=== PATIENT | male | born 1965 ===

== ENCOUNTER 2021-05-11 08:10 | Emergency (ER) | payer SELFPAY ==
[2021-05-11 08:51] VITALS: BP 127/76; PULSE 80; RESP 18; TEMP 36.9; O2SAT 100; BMI 23.3
--- NOTE | 2021-05-11 09:27 | ED_ITS ---
HPI - Ear Problem General Chief complaint: Ear Problems Stated complaint: ear problem Time Seen by Provider: 05/11/21 09:11 Source: patient Mode of arrival: ambulatory Limitations: no limitations History of Present Illness HPI Narrative: 56-year-old healthy male presenting to the ED with 3-4 days of left-sided ear pain and hearing loss. States about 2 weeks ago year to pop in that ear but did not notice discomfort. Denies drainage or discharge from the ear. Denies fevers or chills. Denies headache neck pain chest pain or shortness of breath. Due to concern in the absence of primary care physician he felt he needed to be seen. Denies any recent swimming or trauma to the ear itself. Related Data Previous Rx's Medication Instructions Recorded amoxicillin 1,000 mg PO Q12H #40 tab 05/11/21 carbamide peroxide [Debrox] 5 drp OTIC (EAR) RIGHT DAILY 4 05/11/21 Days ml Allergies Allergy/AdvReac Type Severity Reaction Status Date / Time No Known Allergies Allergy Verified 05/11/21 08:51 Review of Systems Review of Systems: Constitutional : No Weight loss, No Fever, No Chills, No Night Sweats, No Fatigue, No Malaise ENT/Mouth : +Hearing loss, + Ear Pain, No Nasal Congestion, No Sinus Pain, No Hoarseness, No sore throat, No Rhinorrhea, No Swallowing Difficulty Eyes: No Eye Pain, No Swelling, No Redness, No Foreign Body, No Discharge, No Vision Changes Cardiovascular : No Chest Pain, No SOB, No Dyspnea on Exertion, No Orthopnea, No Edema, No Palpitations Respiratory : No Cough, No Sputum, No Wheezing, No Smoke Exposure, No Dyspnea Gastrointestinal : No Nausea, No Vomiting, No Diarrhea, No Constipation, No abdominal Pain, No Hematochezia, No Melena Genitourinary : no irregular bleeding, No Dysuria, No Urinary Frequency, No Hematuria, No Urinary Incontinence, No Urgency, No Flank Pain, No Urinary Flow Changes, No Hesitancy Musculoskeletal : No joint pain, No Myalgias, No Joint Swelling Skin : No Skin Lesions, No rash Neuro : No Weakness, No Numbness, No Paresthesias, No Loss of Consciousness, No Dizziness, No Headache Psych : No Anxiety/Panic, No Depression, No SI/HI/AH/VH, No Social Issues, Heme/Lymph: No Bruising, No Bleeding,No Lymphadenopathy Endocrine : No Polyuria, No Polydipsia, No Temperature Intolerance [facility] Past Medical History Attestation statement: The following information was validated with the patient. Source: old records reviewed and obtained from family Medical History (Updated 05/11/21 @ 10:45 by RAJ Neal) No known health problems Social History Social History Advance Directives: No Advance Directives Information Provided: No Physical Exam Vital Signs: Vital Signs: Last Vital Signs Temp 98.5 F 05/11/21 08:51 Pulse 80 05/11/21 08:51 Resp 18 05/11/21 08:51 BP 127/76 05/11/21 08:51 Pulse Ox 100 05/11/21 08:51 Body Mass Index 23.3 vital signs have been reviewed as normal and appeared to be correct. Blood pressure normal. Heart rate normal. Respiration rate normal. Temperature normal. Oxygen saturation normal. Appearance: Alert. Oriented X3. No acute distress. Head: Normal external exam. Normocephalic. Atraumatic. No Beck signs noted. No raccoon eyes noted Eyes: Conjunctiva and sclera normal. ENT: EAC normal. Patient with significant cerumen to bilateral ears, right TM visualized and normal, left TM unable to be visualized due to cerumen. Moist mucous membranes. No drooling noted. No muffled voice noted. Neck: Normal inspection. Neck supple. FROM. No meningeal signs. CVS: Pulses normal throughout. Respiratory: No respiratory distress. Painless inspiration. No accessory muscle usage noted Abdomen: No visible injury noted. Back: Full range of motion noted. Skin: Skin warm and dry. Normal skin color. Normal skin turgor. Extremities: No lower extremity edema. Extremities exhibit normal range of motion. Neuro: Oriented X 3. No motor deficit. No sensory deficit. Course Reevaluation(s) Reevaluation #1: Colace seem to work well after significant flushing large amount of ear wax was removed showing a TM without rupture. Patient does have mild purulence and irritation from procedure may represent otitis media will treat with amoxicillin as well as Debrox for the other ear to help ear wax buildup patient comfortable with this plan feel that discharge is safe with close outpatient follow-up and strict return precautions. MDM - Ear MDM Narrative Medical decision making narrative: Patient's vital signs are stable and he is afebrile. Patient presenting to the emergency department with left ear pain and hearing loss times 2-3 days unable to visualize left TM due to significant cerumen impaction physical debridement attempted minimal improvement will place Colace in the patient's left ear at times to soften wax buildup and fully assess left TM as there was a concern for acute otitis media TM rupture. Will continue monitor Discharge Plan Discharge Clinical Impression: Otitis media Qualifiers: Otitis media type: suppurative Chronicity: acute Laterality: left Recurrence: non-recurrent Spontaneous tympanic membrane rupture: without spontaneous rupture Qualified Code(s): H66.002 - Acute suppurative otitis media without spontaneous rupture of ear drum, left ear Patient Disposition: Home, Self-Care Instructions: Ear Infection (ED) Additional Instructions: You were seen in the emergency department today for left ear pain and hearing loss she had a significant amount of wax in the ear that was cleaned out. He will be prescribed Debrox drops used in the right ear to help prevent this from happening. In addition you will be prescribed antibiotics to take orally as there is signs of mild ear infection. Return to the ED for having worsening symptoms follow-up with clinical research manager if you continue to have hearing loss. Prescriptions: New amoxicillin 500 mg tablet 1,000 mg PO Q12H Qty: 40 RF: 0 carbamide peroxide [Debrox] 6.5 % drops 5 drp otic (ear) right DAILY 4 Days RF: 0 Referrals: Marylou Sanders MD [Physician] - 1 week Interventions: ED Discharge Assessment Last Done: 05/11/21 11:07 Discharge Date/Time: 05/11/21 11:16 Print Language: Luxembourgish
[2021-05-11] MEDS: Docusate Sodium 100 MG/10 ML LIQUID PO (09:32)
--- NOTE | 2021-05-11 11:04 | PC.NURSE ---
Cerumen removed by pac cortez @ approx, 1020, md preciado also at bedside to evaluate r ear. pt tolerates procedure well, denies discomfort after.
== END 2021-05-11 11:16 | disposition home or self-care (01) ==
PROVIDERS: Emergency Provider Student in an Organized Health Care Education/Training Program
DX: H66.002 Acute suppurative otitis media without spontaneous rupture of ear drum, left ear (principal)
CPT/HCPCS: 69209; 99283

== ENCOUNTER 2021-10-20 12:23 | Emergency (ER) | payer MEDICAID, SELFPAY ==
[2021-10-20 12:26] VITALS: BP 132/100; PULSE 85; RESP 18; TEMP 37.2; O2SAT 97; BMI 25.0
--- NOTE | 2021-10-20 14:34 | ED_ITS ---
HPI - Dental/Oral General Chief complaint: Dental/Oral Stated complaint: facial swelling Time Seen by Provider: 10/20/21 14:09 Source: patient Mode of arrival: ambulatory Limitations: no limitations History of Present Illness HPI Narrative: 56-year-old male here with complaints of left upper dental pain with facial swelling since yesterday. Patient tells me he knows that he has had several broken teeth in the left upper area but has not seen a dentist. He denies any fevers, chills, difficulty swallowing or breathing. Smokes cigarette Complaint: tooth pain Related Data Previous Rx's Medication Instructions Recorded amoxicillin 500 mg tablet 1,000 mg PO Q12H #40 tab 05/11/21 carbamide peroxide 6.5 % ear drops 5 drp OTIC (EAR) RIGHT DAILY 4 05/11/21 (Debrox) Days ml clindamycin HCl 300 mg capsule 300 mg PO Q8H #21 cap 10/20/21 ibuprofen 600 mg tablet 600 mg PO Q8H PRN #20 tab 10/20/21 oxycodone 5 mg tablet 5 mg PO Q8H PRN #10 tab 10/20/21 Allergies Allergy/AdvReac Type Severity Reaction Status Date / Time No Known Allergies Allergy Verified 10/20/21 12:26 Review of Systems Review of Systems: Yes all other systems are reviewed and are negative Constitutional: Constitutional: Reports no additional constitutional complaints, Denies body ache(s), Denies chills, Denies fever(s), Denies headache(s) and Denies weakness Eyes: Eyes: Reports no additional eye complaints and Denies change in vision ENT: Reports system reviewed and no additional complaints, except as documented, Reports dental pain, Denies dizziness, Reports facial pain, Denies headache(s), Denies nasal congestion, Denies nasal discharge and Denies neck pain Cardiovascular: Cardiovascular: Reports no additional cardiovascular complaints, Denies chest pain, Denies leg edema and Denies dyspnea Respiratory: Respiratory: Reports no additional respiratory complaints, Denies cough and Denies dyspnea Gastrointestinal: Gastrointestinal: Reports no additional gastrointestinal complaints, Denies abdominal pain, Denies diarrhea, Denies nausea and Denies vomiting Genitourinary: Genitourinary: Denies urinary incontinence Musculoskeletal: Musculoskeletal: Reports no additional musculoskeletal complaints, Denies back pain, Denies arthralgias, Denies joint swelling, Denies neck pain, Denies numbness and Denies tingling Integumentary/Breasts: Skin/Breast: Reports system reviewed and no additional complaints, except as docu and Denies rash Neurologic: Reports system reviewed and no additional complaints, except as documented, Denies Abnormal speech present, Denies dizziness, Denies headache(s), Denies numbness, Denies tingling and Denies weakness [facility] Past Medical History Attestation statement: The following information was validated with the patient. Source: old records reviewed and nursing notes reviewed Medical History No known health problems Social History Social History Advance Directives: No Advance Directives Information Provided: Yes Physical Exam Vital Signs: Vital Signs: Last Vital Signs Temp 99.0 F 10/20/21 12:26 Pulse 85 10/20/21 12:26 Resp 18 10/20/21 12:26 BP 132/100 H 10/20/21 12:26 Pulse Ox 97 10/20/21 12:26 BMI result Body Mass Index 25.0 Const: General: cooperative, healthy appearing, comfortable and no acute di stress Orientation/consciousness: patient oriented x3 Limitations: no limitations HENMT: Head: Yes normal to inspection Ears: hearing grossly normal bilaterally General nose exam: Normal external nose present Face and sinus : Yes normal facial exam Face images: 1. Mild swelling, tenderness. No fluctuation or induration No trismus on exam Mouth: Normal oral and palatal mucosa present Teeth image: 1. Extensive caries At the gum line there is erythema, swelling and tenderness. There is no fluctuance or induration Throat: Yes posterior oropharynx normal Eyes: General: appearance normal, both eyes and all related structures Pupi ls: Equal, round and reactive pupils present Neck: Neck: Yes normal visual inspection, Yes full ROM, Yes no lymphadenopathy and Yes no meningeal signs Chest: Chest palpation & inspection: normal inspection of the chest Resp: Effort & Inspection: normal respiratory effort Auscultation: clear to auscultation bilaterally Cardio: Rate: regular rate Rhythm: regular rhythm Peripheral pulses: Pe ripheral pulses 2+ throughout GI: Inspection: Yes normal to inspection Palpation (GI): Soft to palpation and nontender Auscultation: normal bowel sounds Back/Spine/Pelvis: Thoracic/Lumbar Spine: thoracic and lumbar spine normal to inspection Skin: General skin exam: no rashes or lesions noted Neuro: General: patient oriented x3, no meningeal signs, no focal motor deficits and normal sensation to monofilament Cranial nerves: Yes Equal, round and reactive pupils present Cognition (Neuro): normal cognition Speech: No Abnormal speech present Gait exam (Neuro): Normal gait present Motor exam (neuro): 5/5 motor strength present throughout Extrem: General: Yes normal to inspection Course Course Course Narrative: 56-year-old male here with a left-sided dental infection with a local facial cellulitis. No trismus. Nontoxic, afebrile. No obvious abscess on exam. Will start patient on oral antibiotics. Reviewed strict return precautions such as increasing swelling, difficulty breathing, difficulty swallowing, fever and when to return to the emergency department. Comfortable discharge home. [facility] - Dental/Oral Medical Records Attestation: I reviewed the patient's medical records. Lab Data Attestation: I reviewed the patient's lab results. Discharge Plan Discharge Clinical Impression: Dental infection, Cellulitis Patient Disposition: Home, Self-Care Instructions: Dental Abscess (ED), Cellulitis (ED) Additional Instructions: See dental clinic list Salt water gargle Stop smoking Return for worsening swelling, pain or fever Prescriptions: New clindamycin HCl 300 mg capsule 300 mg PO Q8H Qty: 21 RF: 0 ibuprofen 600 mg tablet 600 mg PO Q8H PRN (Reason: pain) Qty: 20 RF: 0 oxycodone 5 mg tablet 5 mg PO Q8H PRN (Reason: pain) Qty: 10 RF: 0 No Action amoxicillin 500 mg tablet 1,000 mg PO Q12H Qty: 40 RF: 0 carbamide peroxide [Debrox] 6.5 % drops 5 drp otic (ear) right DAILY 4 Days RF: 0 Referrals: Physician,Unknown J [Primary Care Provider] - 2 days Interventions: ED Discharge Assessment Last Done: 10/20/21 14:25 Discharge Date/Time: 10/20/21 14:30
== END 2021-10-20 14:30 | disposition home or self-care (01) ==
LOC: HO.ED 14:26
PROVIDERS: Emergency Provider Emergency Medicine Emergency Medical Services
DX: K04.7 Periapical abscess without sinus (principal); K12.2 Cellulitis and abscess of mouth; Z79.899 Other long term (current) drug therapy
CPT/HCPCS: 99283

== ENCOUNTER 2022-05-01 20:03 | Inpatient (IN) | payer MEDICAID, SELFPAY ==
--- NOTE | ~2022-05-01 | CT_ITS ---
EXAMINATION: CT ABDOMEN AND PELVIS WITHOUT CONTRAST CLINICAL INFORMATION: Mid abdominal pain COMPARISON: None TECHNIQUE: Multidetector volumetric imaging was performed from the superior aspect of the liver through the pubic symphysis. Sagittal and coronal reformatted images were obtained on the technologist's workstation. This CT examination was performed using dose optimization techniques as appropriate, variously including the following: *Automated exposure control *Adjustment of mA and/or kV according to patient size (this includes techniques or standardized protocols for targeted exams where dose is matched to indication/reason for exam; i.e. extremities or head) *Use of iterative reconstruction technique DLP: 314 mGy-cm FINDINGS: LUNG BASES: Mild centrilobular emphysematous change the right lung base. Lung bases otherwise clear. LIVER, GALLBLADDER, AND BILIARY TREE: The liver is normal in size, shape, and attenuation. No focal hepatic lesion or biliary ductal dilatation is present. The gallbladder is unremarkable with no evidence of radiopaque gallstones, gallbladder wall thickening, or obvious pericholecystic inflammatory changes. PANCREAS: Unremarkable. SPLEEN: Unremarkable. ADRENAL GLANDS: Unremarkable. KIDNEYS AND URETERS: The kidneys are normal in size, shape, and attenuation. No hydronephrosis, hydroureter, or calculi seen. No perinephric stranding. BLADDER: Unremarkable. GASTROINTESTINAL TRACT: Colonic diverticulosis. Mild mural thickening and minimal pericolonic fat stranding involving a short segment of the sigmoid colon in the left hemipelvis on series 3-55, coronal images 42 through 45 suspicious for acute uncomplicated sigmoid diverticulitis. No evidence of extraluminal gas/perforation. No abscess. No additional bowel wall thickening. No dilated bowel loops. Normal appendix. No ascites or free air. ABDOMINAL WALL: No significant hernia is appreciated. LYMPH NODES: No lymphadenopathy. VASCULAR: Normal caliber abdominal aorta. PELVIC VISCERA: Unremarkable. OSSEOUS STRUCTURES: No acute fracture or suspicious osseous lesion. Minimal disc degenerative changes at L3-L4 through L5-S1 with minimal endplate proliferative change. Preserved disc heights. CT/CT abdomen pelvis wo con IMPRESSION: 1. Findings compatible with mild acute uncomplicated sigmoid diverticulitis involving a short segment of the sigmoid colon located in the left pelvis. No evidence of perforation or abscess. 2. No other acute intra-abdominal process identified.
[2022-05-01 20:18] VITALS: BP 145/79; PULSE 97; RESP 16; TEMP 36.6; O2SAT 99; BMI 23.3
--- NOTE | 2022-05-01 20:38 | ED.ABDPAIN ---
HPI - Abdominal Pain General Chief Complaint: Abdominal Pain Stated Complaint: sever abdominal pain, weak Time Seen by Provider: 05/01/22 20:38 Source: patient Mode of arrival: ambulatory Limitations: no limitations History of Present Illness HPI narrative: patient with no significant past medical history noticed nausea vomiting 2 days ago followed by mid abdominal pain without any radiation no diarrhea no fever no chills patient had multiple episodes of vomiting also feeling chills and low-grade fever. Patient never had similar pain in the past. Patient denies any substance abuse. No urinary complaints no flank pain patient never had similar pain in the past Related Data Previous Rx's Medication Instructions Recorded amoxicillin 500 mg tablet 1,000 mg PO Q12H #40 tabs 05/11/21 carbamide peroxide 6.5 % ear drops 5 drp otic (ear) right DAILY 4 days 05/11/21 (Debrox) clindamycin HCl 300 mg capsule 300 mg PO Q8H #21 caps 10/20/21 ibuprofen 600 mg tablet 600 mg PO Q8H PRN pain #20 tabs 10/20/21 oxycodone 5 mg tablet 5 mg PO Q8H PRN pain #10 tabs 10/20/21 Allergies Allergy/AdvReac Type Severity Reaction Status Date / Time No Known Allergies Allergy Verified 10/20/21 12:26 Review of Systems Review of Systems Yes all other systems are reviewed and are negative [facility] Past Medical History Medical History No known health problems Social History Social History Patient Tobacco Use Status: Current someday Tobacco user Use of substances other than those prescribed or required for medical reasons: Yes Substance Use Type: Marijuana Advance Directives: No Advance Directives Information Provided: Yes Physical Exam ED Vital Signs: Vital Signs - 24 hr 05/01/22 20:18 05/01/22 21:26 05/01/22 23:05 Temperature 97.9 F 98.0 F Pulse Rate 97 75 Respiratory Rate 16 20 16 Blood Pressure 145/79 H 111/63 Pulse Oximetry 99 96 Oxygen Delivery Method Room Air Room Air 05/01/22 23:39 Temperature Pulse Rate Respiratory Rate 22 H Blood Pressure Pulse Oximetry Oxygen Delivery Method BMI result Body Mass Index 23.3 Appearance: Alert. Oriented X3. in moderate distress anxious Eyes: no pallor/icterus ENT: Pharynx normal. Oral Mucosa moist Neck: Normal inspection. Neck supple. CVS: Normal heart rate and rhythm. Pulses normal. Respiratory: No respiratory distress. Equal air entry bilateral, no wheezing/rales/rhonchi Abdomen: Soft and diffuse tenderness mid abdomen lower abdominal guarding no rebound tenderness. Bowel sounds are present, no mass palpable, no CVA tenderness Skin: Skin warm and dry. Normal skin color. Normal skin turgor. Extremities: No lower extremity edema. No calf tenderness Neuro: Oriented X 3. No motor deficit. MDM - Abdominal Pain MDM Narrative Medical decision making narrative: 0 patient with diffuse abdominal pain CT scan showed acute uncomplicated sigmoid diverticulitis with leukocytosis and lactic acidosis secondary to vomiting and infection. Will start patient on IV fluids will give Zosyn admit Differential Diagnosis Differential diagnosis: Likely abdominal pain, bowel perforation, calculus of kidney and diverticulitis Lab Data Attestation: I reviewed the patient's lab results. Result diagrams: 05/01/22 20:34 05/01/22 20:34 Labs: Lab Results 05/01/22 05/01/22 05/01/22 Range/Units 20:34 20:34 21:16 WBC 15.6 H (4.8-10.8) X10*3/uL RBC 5.59 (4.60-5.80) X10*6/uL Hgb 15.0 (14.0-18.0) g/dl Hct 46.1 (42.0-52.0) % MCV 82.5 (80.0-98.0) fL MCH 26.8 L (27.0-33.0) pg MCHC 32.5 (31.0-36.0) g/dl RDW 14.0 (11.0-16.0) % Plt Count 266 (160-400) X10*3/uL MPV 8.9 L (9.4-12.4) fL Absolute Nucleated RBC 0.000 (0.0-0.012) X10*3/uL Nucleated RBC % (auto) 0.0 (0.0-0.2) /100WBC Sodium 136 (135-145) mmol/L Potassium 3.5 (3.3-5.1) mmol/L Chloride 100 (96-108) mmol/L Carbon Dioxide 20 L (22-29) mmol/L Anion Gap 20 (12-20) BUN 23 H (9-16) mg/dL Creatinine 1.25 (0.5-1.4) mg/dL Estim Creat Clear Calc 58.0 Estimated GFR 60 Random Glucose 185 H (60-115) mg/dL Lactic Acid 2.6 H* (0.5-2.0) mmol/L Lactic Acid F/U @ 2Hr (0.5-2.0) mmol/L Calcium 10.4 H (8.4-10.2) mg/dL Total Bilirubin 0.8 (0.0-1.0) mg/dL AST 20 (5-37) U/L ALT 16 (0-40) U/L Alkaline Phosphatase 73 (39-117) U/L Total Protein 8.4 H (6.5-8.0) g/dL Albumin 5.1 H (3.5-5.0) g/dL Lipase 65 (8-78) U/L Urine Color Urine Appearance Urine pH (5.0-8.0) Ur Specific [place] (1.005-1.025) Urine Protein (NEG-TRACE) MG/DL Urine Glucose (UA) (NEG) MG/DL Urine Ketones (NEG) MG/DL Urine Blood (NEG) Urine Nitrite (NEG) Ur Leukocyte Esterase (NEG) Urine RBC (0) /HPF Urine WBC (0-4) /HPF Ur Squamous Epith Cells /LPF Calcium Oxalate Crystal /LPF Urine Bacteria /LPF Hyaline Casts /LPF Granular Casts /LPF Urine Mucus /LPF Urine Opiates Screen (Not Detect) Urine Fentanyl Screen (Not Detect) Ur Barbiturates Screen (Not Detect) Ur Phencyclidine Scrn (Not Detect) Ur Amphetamines Screen (Not Detect) U Benzodiazepines Scrn (Not Detect) Urine Cocaine Screen (Not Detect) U Marijuana (THC) Screen (Not Detect) COVID-19 ([facility]) (Negative) COVID-19 Clin Com 05/01/22 05/01/22 05/01/22 Range/Units 23:11 23:11 23:11 WBC (4.8-10.8) X10*3/uL RBC (4.60-5.80) X10*6/uL Hgb (14.0-18.0) g/dl Hct (42.0-52.0) % MCV (80.0-98.0) fL MCH (27.0-33.0) pg MCHC (31.0-36.0) g/dl RDW (11.0-16.0) % Plt Count (160-400) X10*3/uL MPV (9.4-12.4) fL Absolute Nucleated RBC (0.0-0.012) X10*3/uL Nucleated RBC % (auto) (0.0-0.2) /100WBC Sodium (135-145) mmol/L Potassium (3.3-5.1) mmol/L Chloride (96-108) mmol/L Carbon Dioxide (22-29) mmol/L Anion Gap (12-20) BUN (9-16) mg/dL Creatinine (0.5-1.4) mg/dL Estim Creat Clear Calc Estimated GFR Random Glucose (60-115) mg/dL Lactic Acid (0.5-2.0) mmol/L Lactic Acid F/U @ 2Hr (0.5-2.0) mmol/L Calcium (8.4-10.2) mg/dL Total Bilirubin (0.0-1.0) mg/dL AST (5-37) U/L ALT (0-40) U/L Alkaline Phosphatase (39-117) U/L Total Protein (6.5-8.0) g/dL Albumin (3.5-5.0) g/dL Lipase (8-78) U/L Urine Color YELLOW Urine Appearance CLEAR Urine pH 6.0 (5.0-8.0) Ur Specific [place] >= 1.030 H (1.005-1.025) Urine Protein 2+ H (NEG-TRACE) MG/DL Urine Glucose (UA) NEG (NEG) MG/DL Urine Ketones NEG (NEG) MG/DL Urine Blood 3+ H (NEG) Urine Nitrite NEG (NEG) Ur Leukocyte Esterase NEG (NEG) Urine RBC 10-14 H (0) /HPF Urine WBC 1-4 (0-4) /HPF Ur Squamous Epith Cells 1+ /LPF Calcium Oxalate Crystal 1+ /LPF Urine Bacteria 2+ /LPF Hyaline Casts 1-4 /LPF Granular Casts 0-2 /LPF Urine Mucus 2+ /LPF Urine Opiates Screen POSITIVE H (Not Detect) Urine Fentanyl Screen Not Detected (Not Detect) Ur Barbiturates Screen Not Detected (Not Detect) Ur Phencyclidine Scrn Not Detected (Not Detect) Ur Amphetamines Screen Not Detected (Not Detect) U Benzodiazepines Scrn Not Detected (Not Detect) Urine Cocaine Screen Not Detected (Not Detect) U Marijuana (THC) Screen POSITIVE H (Not Detect) COVID-19 ([facility]) Negative (Negative) COVID-19 Clin Com See Note 05/01/22 Range/Units 23:46 WBC (4.8-10.8) X10*3/uL RBC (4.60-5.80) X10*6/uL Hgb (14.0-18.0) g/dl Hct (42.0-52.0) % MCV (80.0-98.0) fL MCH (27.0-33.0) pg MCHC (31.0-36.0) g/dl RDW (11.0-16.0) % Plt Count (160-400) X10*3/uL MPV (9.4-12.4) fL Absolute Nucleated RBC (0.0-0.012) X10*3/uL Nucleated RBC % (auto) (0.0-0.2) /100WBC Sodium (135-145) mmol/L Potassium (3.3-5.1) mmol/L Chloride (96-108) mmol/L Carbon Dioxide (22-29) mmol/L Anion Gap (12-20) BUN (9-16) mg/dL Creatinine (0.5-1.4) mg/dL Estim Creat Clear Calc Estimated GFR Random Glucose (60-115) mg/dL Lactic Acid (0.5-2.0) mmol/L Lactic Acid F/U @ 2Hr 1.1 (0.5-2.0) mmol/L Calcium (8.4-10.2) mg/dL Total Bilirubin (0.0-1.0) mg/dL AST (5-37) U/L ALT (0-40) U/L Alkaline Phosphatase (39-117) U/L Total Protein (6.5-8.0) g/dL Albumin (3.5-5.0) g/dL Lipase (8-78) U/L Urine Color Urine Appearance Urine pH (5.0-8.0) Ur Specific [place] (1.005-1.025) Urine Protein (NEG-TRACE) MG/DL Urine Glucose (UA) (NEG) MG/DL Urine Ketones (NEG) MG/DL Urine Blood (NEG) Urine Nitrite (NEG) Ur Leukocyte Esterase (NEG) Urine RBC (0) /HPF Urine WBC (0-4) /HPF Ur Squamous Epith Cells /LPF Calcium Oxalate Crystal /LPF Urine Bacteria /LPF Hyaline Casts /LPF Granular Casts /LPF Urine Mucus /LPF Urine Opiates Screen (Not Detect) Urine Fentanyl Screen (Not Detect) Ur Barbiturates Screen (Not Detect) Ur Phencyclidine Scrn (Not Detect) Ur Amphetamines Screen (Not Detect) U Benzodiazepines Scrn (Not Detect) Urine Cocaine Screen (Not Detect) U Marijuana (THC) Screen (Not Detect) COVID-19 ([facility]) (Negative) COVID-19 Clin Com Discharge Plan Discharge Clinical Impression: Diverticulitis Patient Disposition: Admitted As Inpatient
[2022-05-01 20:52] LABS: Hematocrit 46.1 % (42.0-52.0); Mean Corpuscular HGB Conc 32.5 g/dl (31.0-36.0); Mean Corpuscular Hemoglobin 26.8 pg (27.0-33.0); Mean Corpuscular Volume 82.5 fL (80.0-98.0); Mean Platelet Volume 8.9 fL (9.4-12.4); Platelet Count 266 X10*3/uL (160-400); Red Blood Count 5.59 X10*6/uL (4.60-5.80); White Blood Count 15.6 X10*3/uL (4.8-10.8)
[2022-05-01 21:06] LABS: Alanine Aminotransferase 16 U/L (0-40); Albumin Level 5.1 g/dL (3.5-5.0); Alkaline Phosphatase 73 U/L (39-117); Anion Gap 20 (12-20); Aspartate Amino Transferase 20 U/L (5-37); Bilirubin Total 0.8 mg/dL (0.0-1.0); Blood Urea Nitrogen 23 mg/dL (9-16); Calcium 10.4 mg/dL (8.4-10.2); Carbon Dioxide 20 mmol/L (22-29); Chloride 100 mmol/L (96-108); Estimated Glomerular Filt Rate 60; Glucose Random 185 mg/dL (60-115); Lipase 65 U/L (8-78); Potassium 3.5 mmol/L (3.3-5.1); Sodium 136 mmol/L (135-145); Total Protein 8.4 g/dL (6.5-8.0)
[2022-05-01 21:26] VITALS: RESP 20
[2022-05-01] MEDS: 0.9 % Sodium Chloride 1,000 ML 999 ML IV ×2 (21:26)
[2022-05-01] MEDS: ondansetron HCL 4 MG/2 ML VIAL IVPUSH (21:26)
[2022-05-01] MEDS: Morphine Sulfate 4 MG/ML CARTRIDGE IVPUSH (21:26)
--- NOTE | 2022-05-01 21:34 | PC.NURSE ---
20g IV access established in left forearm. Labs drawn and sent, results pending. Medicated per MD orders. Normal saline 2L infusing.
[2022-05-01 21:55] LABS: Lactic Acid 2.6 mmol/L (0.5-2.0)
[2022-05-01] MEDS: Piperacillin Sodium/Tazobactam 3.375 GM in 0.9 % Sodium Chloride 50 ML IV (22:52)
[2022-05-01 23:05] VITALS: BP 111/63; PULSE 75; RESP 16; TEMP 36.7; O2SAT 96
--- NOTE | 2022-05-01 23:10 | PC.NURSE ---
pt a&o, no sob or chest pain. pt medicated per Mar, Iv placed and labs collected. Will continue to monitor
[2022-05-01 23:18] LABS: Appearance Urine CLEAR; Color Urine YELLOW; Glucose Urine UA NEG (NEG); Leukocyte Esterase Urine NEG (NEG); Nitrite Urine NEG (NEG); Specific Gravity - Urine >= 1.030 (1.005-1.025); UACC Culture Trigger NO; Urine Blood 3+ (NEG); Urine Ketones NEG (NEG); Urine Protein 2+ MG/DL (NEG-TRACE)
[2022-05-01 23:22] LABS: Reflex Lactate? Lactic Acid Added
[2022-05-01 23:29] LABS: Bacteria Urine 2+ /LPF; Calcium Oxalate Crystals Urine 1+ /LPF; Granular Casts Urine 0-2 /LPF; Mucus Urine 2+ /LPF; Squamous Epithelial Cell Urine 1+ /LPF
[2022-05-01 23:33] LABS: Amphetamine Screen Urine Not Detected (Not Detect); Barbiturates, Urine Not Detected (Not Detect); Benzodiazepines Screen Urine Not Detected (Not Detect); Cannabinoid Screen Urine POSITIVE (Not Detect); Cocaine Screen Urine Not Detected (Not Detect); Fentanyl, urine Not Detected (Not Detect); Opiate Screen Urine POSITIVE (Not Detect); Phencyclidine Screen Urine Not Detected (Not Detect)
[2022-05-01 23:35] LABS: COVID-19 Test Negative (Negative)
[2022-05-01 23:39] VITALS: RESP 22
[2022-05-01] MEDS: Morphine Sulfate 2 MG/ML CARTRIDGE IVPUSH (23:39)
[2022-05-02 00:04] LABS: ~Lactic Acid-LAB USE ONLY 1.1 mmol/L (0.5-2.0)
--- NOTE | 2022-05-02 00:23 | PM.IMHP ---
History of Present Illness Date of Service: 05/02/22 Chief Complaint: Abdominal pain This is a 57-year-old male with no significant past medical history presents to the hospital with complaints of abdominal pain. Patient reports the abdominal pain is localized in the umbilical region radiating to the left, associated with nausea, no vomiting, low appetite. A low oral intake. Denies any fever but has chills, no chest pain, no shortness of breath, no diarrhea or constipation, no urinary symptoms and no lower extremity edema. No headache or change in vision. On arrival to the ED patient hemodynamically stable with no significant abnormal vitals Labs are significant for WBC count 15.6, BUN of 23, creatinine of 1.25, lactic acid of 2.6, UA negative Abdominal pelvic CT shows who acute uncomplicated sigmoid diverticulitis involving a short segment of the sigmoid colon located in the left pelvis, no evidence of perforation or abscess. Patient will be admitted for further management Review of Systems Review of Systems: Yes all other systems are reviewed and are negative [facility] Medical History (Updated 05/02/22 @ 06:51 by Dasha Diaz MD) No known health problems Family History (Updated 05/02/22 @ 06:50 by Dasha Diaz MD) Other No family history of coronary artery disease Surgical History (Updated 05/02/22 @ 06:50 by Dasha Diaz MD) No pertinent past surgical history Social History Patient Tobacco Use Status: Current someday Tobacco user Use of substances other than those prescribed or required for medical reasons: Yes Substance Use Type: Marijuana Advance Directives: No Advance Directives Information Provided: Yes Meds Allergies Allergy/AdvReac Type Severity Reaction Status Date / Time No Known Allergies Allergy Verified 05/02/22 04:21 Home Medications Medication Instructions Recorded Confirmed Last Taken Type No Known Home Meds 05/02/22 05/02/22 Unknown History Physical Exam Vital Signs and Narrative: Vital Signs: Last Vital Signs Temp 98.0 F 05/01/22 23:05 Pulse 75 05/01/22 23:05 Resp 22 H 05/01/22 23:39 BP 111/63 05/01/22 23:05 Pulse Ox 96 05/01/22 23:05 O2 Del Method 05/01/22 23:05 BMI result Body Mass Index 23.3 Const: General: cooperative and no acute distress Orientation/consciousness: patient oriented x3 Eyes: General: appearance normal, both eyes and all related structures Resp: Effort & Inspection: normal respiratory effort Auscultation: clear to auscultation bilaterally Cardio: Rate: regular rate Rhythm: regular rhythm GI: Other: Abdomen is soft, tender in the left lower quadrant, some guarding, no rebound Palpation (GI): Soft to palpation Auscultation: normal bowel sounds Skin: General skin exam: no rashes or lesions noted Neuro: General: patient oriented x3 Cognition (Neuro): normal cognition Extrem: General: Yes normal to inspection and Yes no pedal edema Results Labs CBC and Chem 7: 05/01/22 20:34 05/01/22 20:34 Labs: Laboratory Results - last 24 hr 05/01/22 05/01/22 05/01/22 20:34 20:34 21:16 MCV 82.5 MCH 26.8 L MCHC 32.5 RDW 14.0 Plt Count 266 MPV 8.9 L Absolute Nucleated RBC 0.000 Nucleated RBC % (auto) 0.0 Anion Gap 20 Estim Creat Clear Calc 58.0 Estimated GFR 60 Random Glucose 185 H Lactic Acid 2.6 H* Lactic Acid F/U @ 2Hr Calcium 10.4 H Total Bilirubin 0.8 AST 20 ALT 16 Alkaline Phosphatase 73 Total Protein 8.4 H Albumin 5.1 H Lipase 65 Urine Color Urine Appearance Urine pH Ur Specific [place] Urine Protein Urine Glucose (UA) Urine Ketones Urine Blood Urine Nitrite Ur Leukocyte Esterase Urine RBC Urine WBC Ur Squamous Epith Cells Calcium Oxalate Crystal Urine Bacteria Hyaline Casts Granular Casts Urine Mucus Urine Opiates Screen Urine Fentanyl Screen Ur Barbiturates Screen Ur Phencyclidine Scrn Ur Amphetamines Screen U Benzodiazepines Scrn Urine Cocaine Screen U Marijuana (THC) Screen COVID-19 ([facility]) COVID-19 Clin Com 05/01/22 05/01/22 05/01/22 23:11 23:11 23:11 MCV MCH MCHC RDW Plt Count MPV Absolute Nucleated RBC Nucleated RBC % (auto) Anion Gap Estim Creat Clear Calc Estimated GFR Random Glucose Lactic Acid Lactic Acid F/U @ 2Hr Calcium Total Bilirubin AST ALT Alkaline Phosphatase Total Protein Albumin Lipase Urine Color YELLOW Urine Appearance CLEAR Urine pH 6.0 Ur Specific [place] >= 1.030 H Urine Protein 2+ H Urine Glucose (UA) NEG Urine Ketones NEG Urine Blood 3+ H Urine Nitrite NEG Ur Leukocyte Esterase NEG Urine RBC 10-14 H Urine WBC 1-4 Ur Squamous Epith Cells 1+ Calcium Oxalate Crystal 1+ Urine Bacteria 2+ Hyaline Casts 1-4 Granular Casts 0-2 Urine Mucus 2+ Urine Opiates Screen POSITIVE H Urine Fentanyl Screen Not Detected Ur Barbiturates Screen Not Detected Ur Phencyclidine Scrn Not Detected Ur Amphetamines Screen Not Detected U Benzodiazepines Scrn Not Detected Urine Cocaine Screen Not Detected U Marijuana (THC) Screen POSITIVE H COVID-19 ([facility]) Negative COVID-19 Clin Com See Note 05/01/22 23:46 MCV MCH MCHC RDW Plt Count MPV Absolute Nucleated RBC Nucleated RBC % (auto) Anion Gap Estim Creat Clear Calc Estimated GFR Random Glucose Lactic Acid Lactic Acid F/U @ 2Hr 1.1 Calcium Total Bilirubin AST ALT Alkaline Phosphatase Total Protein Albumin Lipase Urine Color Urine Appearance Urine pH Ur Specific [place] Urine Protein Urine Glucose (UA) Urine Ketones Urine Blood Urine Nitrite Ur Leukocyte Esterase Urine RBC Urine WBC Ur Squamous Epith Cells Calcium Oxalate Crystal Urine Bacteria Hyaline Casts Granular Casts Urine Mucus Urine Opiates Screen Urine Fentanyl Screen Ur Barbiturates Screen Ur Phencyclidine Scrn Ur Amphetamines Screen U Benzodiazepines Scrn Urine Cocaine Screen U Marijuana (THC) Screen COVID-19 ([facility]) COVID-19 Clin Com Imaging Radiologist's Impressions: Impressions Abdomen/Pelvis CT 05/01/22 21:57 IMPRESSION: 1. Findings compatible with mild acute uncomplicated sigmoid diverticulitis involving a short segment of the sigmoid colon located in the left pelvis. No evidence of perforation or abscess. 2. No other acute intra-abdominal process identified. Assessment and Plan (1) Diverticulitis: Status: Acute (2) Lactic acidosis: Status: Acute Plan 57-year-old male with no significant past medical history presents to the hospital with abdominal pain found to have acute diverticulitis # acute diverticulitis - Uncomplicated with no evidence of abscess or perforation - will treat with IV antibiotics - follow cultures - NPO # lactic acidosis - likely secondary to above - IV fluid - trend DVT prophylaxis: Lovenox Given requirement for IV antibiotics patient will require a minimum 2 night hospital stay for further management Quality Stroke Does the patient have a stroke diagnosis?: No VTE Prior VTE?: No VTE Risk Level:: Medical - moderate - high VTE Device Contraindication: Treatment Not Indicated VTE Drug Contraindication: N/A - Med Ordered
[2022-05-02] MEDS: Prochlorperazine Edisylate 10 MG/2 ML VIAL 5 MG IVPUSH ×3 (00:48→15:59)
[2022-05-02] MEDS: cefTRIAXone sodium 1 GM in 0.9 % Sodium Chloride 50 ML IV (00:52)
[2022-05-02] MEDS: Enoxaparin Sodium 40 MG/0.4 ML SYRINGE SUBCUT (00:53)
[2022-05-02] MEDS: metroNIDAZOLE/NS 500 MG/100 ML PIGGYBACK 100 MG IV ×3 (01:45→15:53)
[2022-05-02] MEDS: Lactated Ringers 1,000 ML 100 ML IVCONT ×3 (01:51→22:04)
[2022-05-02] MEDS: oxyCODONE HCl Immed Release 5 MG TABLET PO (04:30)
--- NOTE | 2022-05-02 07:05 | PHA.MEDREC ---
Pharmacy Consult ? Medication Reconciliation Pharmacy has reviewed the medication reconciliation compeleted by nursing. Dinorah Mora, ShashiD
[2022-05-02 07:22] VITALS: BP 138/75; PULSE 70; RESP 16; O2SAT 98
[2022-05-02 08:40] LABS: MANUAL DIFF FLAG NO
[2022-05-02 08:43] LABS: Basophils Percent Auto 0.1 % (0-2); Eosinophils Percent Auto 0.2 % (0-4); Hematocrit 41.6 % (42.0-52.0); Hemoglobin 13.5 g/dl (14.0-18.0); Imm Gran Abs Auto 0.06 X10*3/uL (0.00-0.03); Imm Gran Pct Auto 0.4 % (0.0-0.4); Lymphocytes Absolute Auto 2.1 X10*3/uL (1.2-4.9); Lymphocytes Percent Auto 14.1 % (20-40); Mean Corpuscular HGB Conc 32.5 g/dl (31.0-36.0); Mean Corpuscular Hemoglobin 27.2 pg (27.0-33.0); Mean Corpuscular Volume 83.9 fL (80.0-98.0); Mean Platelet Volume 9.3 fL (9.4-12.4); Monocytes Absolute Auto 1.3 X10*3/uL (0.1-1.2); Neutrophils Absolute Auto 11.4 x10*3/uL (2.0-8.3); Neutrophils Percent Auto 76.2 % (45-73); Platelet Count 234 X10*3/uL (160-400); Red Blood Count 4.96 X10*6/uL (4.60-5.80); Red Cell Distribution Width 14.2 % (11.0-16.0); White Blood Count 14.9 X10*3/uL (4.8-10.8)
[2022-05-02 09:08] LABS: Anion Gap 11 (12-20); Blood Urea Nitrogen 13 mg/dL (9-16); Calcium 8.4 mg/dL (8.4-10.2); Carbon Dioxide 26 mmol/L (22-29); Chloride 104 mmol/L (96-108); Creatinine Clr Calc Pharmacy 89.6; Estimated Glomerular Filt Rate > 60; Glucose Random 105 mg/dL (60-115); Potassium 3.7 mmol/L (3.3-5.1); Sodium 137 mmol/L (135-145)
[2022-05-02] MEDS: ondansetron HCL 4 MG/2 ML VIAL IVPUSH (12:12)
--- NOTE | 2022-05-02 12:52 | P.PNIM_ITS ---
Subjective Subjective Date of Service: 05/02/22 Interval History: Abdominal pain Review of Systems Abdominal pain is somewhat better than before, still is feeling significantly nauseated unable to eat, denies any chest pain or shortness of breath or fever or chills or cough or phlegm. Physical Exam Vital Signs: Vital Signs: Last Vital Signs Temp 98.0 F 05/01/22 23:05 Pulse 70 05/02/22 07:22 Resp 16 05/02/22 07:22 BP 138/75 05/02/22 07:22 Pulse Ox 98 05/02/22 07:22 O2 Del Method 05/02/22 07:22 BMI result Body Mass Index 23.3 Unchanged as per H&P. Objective Data Active Medications Acetaminophen (Acetaminophen 325 Mg Tablet) 650 mg PO Q6H PRN PRN Reason: Pain, Mild (Pain Scale 1-3) Docusate Sodium (Docusate Sodium 100 Mg Capsule) 100 mg PO DAILY PRN PRN Reason: Constipation Enoxaparin Sodium (Enoxaparin Sodium 40 Mg/0.4 Ml Syringe) 40 mg SUBCUT Q24H [facility] Last Admin: 05/02/22 00:53 Dose: 40 mg Documented By: ABHISHEK Metronidazole (Flagyl) 500 mg in 100 mls @ 100 mls/hr IV Q8H [facility] Last Infusion: 05/02/22 08:39 Dose: 0 mls/hr Documented By: JOSH Ceftriaxone Sodium 1 gm/ (Sodium Chloride) 50 mls @ 100 mls/hr IV Q24H [facility] Last Infusion: 05/02/22 01:45 Dose: 0 mls/hr Documented By: ABHISHEK Lactated Ringer's (Lr) 1,000 mls @ 100 mls/hr IVCONT .Q10H [facility] Last Admin: 05/02/22 12:12 Dose: 100 mls/hr Documented By: MEL Ondansetron HCl (Ondansetron Hcl 4 Mg/2 Ml Vial) 4 mg IVPUSH Q6H PRN PRN Reason: Nausea Last Admin: 05/02/22 12:12 Dose: 4 mg Documented By: MEL Oxycodone HCl (Oxycodone Hcl Immed Release 5 Mg Tablet) 5 mg PO Q4H PRN PRN Reason: Pain, Severe (Pain Scale 7-10) Last Admin: 05/02/22 04:30 Dose: 5 mg Documented By: ABHISHEK Prochlorperazine Edisylate (Prochlorperazine Edisylate 10 Mg/2 Ml Vial) 5 mg IVPUSH Q4H PRN PRN Reason: nausea, vomiting Last Admin: 05/02/22 08:34 Dose: 5 mg Documented By: JOSH Sodium Chloride (0.9 % Sodium Chloride Flush 3 Ml Syringe) 3 ml IVFLUSH [facility] [place] Last Admin: 05/02/22 08:33 Dose: Not Given Documented By: JOSH Non-Admin Reason: IV Running Labs CBC & Chem 7: 05/02/22 08:12 05/02/22 08:12 Labs: Laboratory Results - last 24 hr 05/01/22 05/01/22 05/01/22 20:34 20:34 21:16 MCV 82.5 MCH 26.8 L MCHC 32.5 RDW 14.0 Plt Count 266 MPV 8.9 L Immature Gran % (Auto) Neut % (Auto) Lymph % (Auto) [place] % (Auto) Eos % (Auto) Baso % (Auto) Lymph # (Auto) [place] # (Auto) Eos # (Auto) Baso # (Auto) Abs Immat Gran (auto) Absolute Neuts (auto) Absolute Nucleated RBC 0.000 Nucleated RBC % (auto) 0.0 Anion Gap 20 Estim Creat Clear Calc 58.0 Estimated GFR 60 Random Glucose 185 H Lactic Acid 2.6 H* Lactic Acid F/U @ 2Hr Calcium 10.4 H Total Bilirubin 0.8 AST 20 ALT 16 Alkaline Phosphatase 73 Total Protein 8.4 H Albumin 5.1 H Lipase 65 Urine Color Urine Appearance Urine pH Ur Specific [place] Urine Protein Urine Glucose (UA) Urine Ketones Urine Blood Urine Nitrite Ur Leukocyte Esterase Urine RBC Urine WBC Ur Squamous Epith Cells Calcium Oxalate Crystal Urine Bacteria Hyaline Casts Granular Casts Urine Mucus Urine Opiates Screen Urine Fentanyl Screen Ur Barbiturates Screen Ur Phencyclidine Scrn Ur Amphetamines Screen U Benzodiazepines Scrn Urine Cocaine Screen U Marijuana (THC) Screen COVID-19 ([facility]) COVID-19 Clin Com 05/01/22 05/01/22 05/01/22 23:11 23:11 23:11 MCV MCH MCHC RDW Plt Count MPV Immature Gran % (Auto) Neut % (Auto) Lymph % (Auto) [place] % (Auto) Eos % (Auto) Baso % (Auto) Lymph # (Auto) [place] # (Auto) Eos # (Auto) Baso # (Auto) Abs Immat Gran (auto) Absolute Neuts (auto) Absolute Nucleated RBC Nucleated RBC % (auto) Anion Gap Estim Creat Clear Calc Estimated GFR Random Glucose Lactic Acid Lactic Acid F/U @ 2Hr Calcium Total Bilirubin AST ALT Alkaline Phosphatase Total Protein Albumin Lipase Urine Color YELLOW Urine Appearance CLEAR Urine pH 6.0 Ur Specific [place] >= 1.030 H Urine Protein 2+ H Urine Glucose (UA) NEG Urine Ketones NEG Urine Blood 3+ H Urine Nitrite NEG Ur Leukocyte Esterase NEG Urine RBC 10-14 H Urine WBC 1-4 Ur Squamous Epith Cells 1+ Calcium Oxalate Crystal 1+ Urine Bacteria 2+ Hyaline Casts 1-4 Granular Casts 0-2 Urine Mucus 2+ Urine Opiates Screen POSITIVE H Urine Fentanyl Screen Not Detected Ur Barbiturates Screen Not Detected Ur Phencyclidine Scrn Not Detected Ur Amphetamines Screen Not Detected U Benzodiazepines Scrn Not Detected Urine Cocaine Screen Not Detected U Marijuana (THC) Screen POSITIVE H COVID-19 ([facility]) Negative COVID-19 Clin Com See Note 05/01/22 05/02/22 05/02/22 23:46 08:12 08:12 MCV 83.9 MCH 27.2 MCHC 32.5 RDW 14.2 Plt Count 234 MPV 9.3 L Immature Gran % (Auto) 0.4 Neut % (Auto) 76.2 H Lymph % (Auto) 14.1 L [place] % (Auto) 9.0 Eos % (Auto) 0.2 Baso % (Auto) 0.1 Lymph # (Auto) 2.1 [place] # (Auto) 1.3 H Eos # (Auto) 0.0 Baso # (Auto) 0.0 Abs Immat Gran (auto) 0.06 H Absolute Neuts (auto) 11.4 H Absolute Nucleated RBC 0.000 Nucleated RBC % (auto) 0.0 Anion Gap 11 L Estim Creat Clear Calc 89.6 Estimated GFR > 60 Random Glucose 105 D Lactic Acid Lactic Acid F/U @ 2Hr 1.1 Calcium 8.4 D Total Bilirubin AST ALT Alkaline Phosphatase Total Protein Albumin Lipase Urine Color Urine Appearance Urine pH Ur Specific [place] Urine Protein Urine Glucose (UA) Urine Ketones Urine Blood Urine Nitrite Ur Leukocyte Esterase Urine RBC Urine WBC Ur Squamous Epith Cells Calcium Oxalate Crystal Urine Bacteria Hyaline Casts Granular Casts Urine Mucus Urine Opiates Screen Urine Fentanyl Screen Ur Barbiturates Screen Ur Phencyclidine Scrn Ur Amphetamines Screen U Benzodiazepines Scrn Urine Cocaine Screen U Marijuana (THC) Screen COVID-19 ([facility]) COVID-19 Clin Com Assessment and Plan (1) Lactic acidosis: Status: Acute (2) Diverticulitis: Status: Acute Plan 57-year-old male with no significant past medical history presents to the hospital with abdominal pain found to have acute diverticulitis # acute diverticulitis - Uncomplicated with no evidence of abscess or perforation - will treat with IV antibiotics, continue antiemetics, IV hydration. - follow cultures - NPO # lactic acidosis - likely secondary to above - IV fluid resolved DVT prophylaxis:? Lovenox inaptien ort need: Acute inverted colitis, on IV antibiotics need hydration and currently and able to eat. Quality Stroke Does the patient have a stroke diagnosis?: No VTE Prior VTE?: No VTE Risk Level:: Medical - moderate - high VTE Device Contraindication: Treatment Not Indicated VTE Drug Contraindication: N/A - Med Ordered
[2022-05-02 17:02] VITALS: BP 132/66; PULSE 73; RESP 15; O2SAT 99
[2022-05-03] MEDS: cefTRIAXone sodium 1 GM in 0.9 % Sodium Chloride 50 ML IV (01:43)
[2022-05-03] MEDS: Enoxaparin Sodium 40 MG/0.4 ML SYRINGE SUBCUT (01:43)
[2022-05-03] MEDS: metroNIDAZOLE/NS 500 MG/100 ML PIGGYBACK 100 MG IV ×3 (01:44→16:42)
--- NOTE | 2022-05-03 02:18 | PC.NURSE ---
I assumed nursing care of Dilan at 1900. He remains in the ED, admitted for diverticulitis and verbalizes an understanding of this. Dilan has been alert, oriented x 3, calm and cooperative. He makes eye contact with staff and is able to adequately make his needs known. He ambulates independently and with steady gait. Respirations are non-labored, no cyanosis, room air sat's are WNL. No anusea, no vomiting. Dilan denies abdominal pain, states they got rid of my pain. Dilan has mostly been sleeping since I arrived, wakes to ambulate to bathroom, wakes to verbal stimuli. IVF s are infusing, ABX given per MD order. Will continue to monitor Dilan.
[2022-05-03 03:45] VITALS: BP 139/79; PULSE 72; RESP 16; TEMP 37.6; O2SAT 98
--- NOTE | 2022-05-03 07:51 | PC.NURSE ---
pt ate clear liquids for breakfast, reports stomach pain and nausea shortly after eating. offered pain medication and zofran at this time will medicate per MAR
[2022-05-03] MEDS: Lactated Ringers 1,000 ML 100 ML IVCONT ×2 (07:58→19:11)
[2022-05-03] MEDS: ondansetron HCL 4 MG/2 ML VIAL IVPUSH ×3 (07:58→23:22)
[2022-05-03] MEDS: oxyCODONE HCl Immed Release 5 MG TABLET PO ×2 (09:08→23:30)
[2022-05-03 11:39] VITALS: BP 143/81; PULSE 61; RESP 16; TEMP 37.1; O2SAT 99
--- NOTE | 2022-05-03 11:50 | HO.PM.IMPN ---
Subjective Subjective Date of Service: 05/03/22 Interval History: cc: f/u acute diverticulitis interval history: pain is better , +nausea Review of Systems abd pain, no fever, + Physical Exam Vital Signs: Vital Signs: Last Vital Signs Temp 98.8 F 05/03/22 11:39 Pulse 61 05/03/22 11:39 Resp 16 05/03/22 11:39 BP 143/81 H 05/03/22 11:39 Pulse Ox 99 05/03/22 11:39 O2 Del Method 05/03/22 11:39 BMI result Body Mass Index 23.3 Const: Other: General: AO X 3, no acute distress Resp: CTA bilateral CVS: S1,S2,RRR GI: +BS, mild RLQ tenderness Skin: No rash Neuro: motor grossly intact Psych: appropriate affect Objective Data Active Medications Acetaminophen (Acetaminophen 325 Mg Tablet) 650 mg PO Q6H PRN PRN Reason: Pain, Mild (Pain Scale 1-3) Docusate Sodium (Docusate Sodium 100 Mg Capsule) 100 mg PO DAILY PRN PRN Reason: Constipation Enoxaparin Sodium (Enoxaparin Sodium 40 Mg/0.4 Ml Syringe) 40 mg SUBCUT Q24H [facility] Last Admin: 05/03/22 01:43 Dose: 40 mg Documented By: DALILA Metronidazole (Flagyl) 500 mg in 100 mls @ 100 mls/hr IV Q8H [facility] Last Infusion: 05/03/22 10:24 Dose: 0 mls/hr Documented By: ALFREDO Ceftriaxone Sodium 1 gm/ (Sodium Chloride) 50 mls @ 100 mls/hr IV Q24H [facility] Last Infusion: 05/03/22 02:35 Dose: 0 mls/hr Documented By: DALILA Lactated Ringer's (Lr) 1,000 mls @ 100 mls/hr IVCONT .Q10H [facility] Last Admin: 05/03/22 07:58 Dose: 100 mls/hr Documented By: FITZ Ondansetron HCl (Ondansetron Hcl 4 Mg/2 Ml Vial) 4 mg IVPUSH Q6H PRN PRN Reason: Nausea Last Admin: 05/03/22 07:58 Dose: 4 mg Documented By: FITZ Ondansetron HCl (Ondansetron Hcl 4 Mg/2 Ml Vial) 4 mg IVPUSH Q8H PRN PRN Reason: Nausea and Vomiting Oxycodone HCl (Oxycodone Hcl Immed Release 5 Mg Tablet) 5 mg PO Q4H PRN PRN Reason: Pain, Severe (Pain Scale 7-10) Last Admin: 05/03/22 09:08 Dose: 5 mg Documented By: FITZ Prochlorperazine Edisylate (Prochlorperazine Edisylate 10 Mg/2 Ml Vial) 5 mg IVPUSH Q4H PRN PRN Reason: nausea, vomiting Last Admin: 05/02/22 15:59 Dose: 5 mg Documented By: MEL Sodium Chloride (0.9 % Sodium Chloride Flush 3 Ml Syringe) 3 ml IVFLUSH [facility] Last Admin: 05/03/22 09:40 Dose: Not Given Documented By: ALFREDO Non-Admin Reason: IV Running Labs CBC & Chem 7: 05/02/22 08:12 05/02/22 08:12 Microbiology Microbiology Results: Microbiology 05/01/22 21:18 Blood Culture - Preliminary Blood - Venous No growth after 24 hours. 05/01/22 21:16 Blood Culture - Preliminary Blood - Venous No growth after 24 hours. Assessment and Plan (1) Diverticulitis: Status: Acute Assessment and Plan: 57-year-old male with no significant past medical history presents to the hospital with abdominal pain found to have acute diverticulitis # acute diverticulitis - Uncomplicated with no evidence of abscess or perforation - will treat with IV antibiotics - follow cultures - Clears and advance as tolerated # lactic acidosis - likely secondary to above - IV fluid - trend DVT prophylaxis:? Lovenox need for inapatient: Given requirement for IV antibiotics for acute diverticulitis while NPO, Quality Stroke Does the patient have a stroke diagnosis?: No VTE Prior VTE?: No VTE Risk Level:: Medical - moderate - high VTE Device Contraindication: Treatment Not Indicated VTE Drug Contraindication: N/A - Med Ordered
[2022-05-03 16:32] VITALS: BP 158/95; PULSE 77; RESP 16; TEMP 37.1; O2SAT 99
[2022-05-03] MEDS: Acetaminophen 325 MG TABLET 650 MG PO (23:29)
[2022-05-03 23:35] VITALS: BP 149/92; PULSE 71; RESP 16; TEMP 37.1; O2SAT 96
[2022-05-04] MEDS: cefTRIAXone sodium 1 GM in 0.9 % Sodium Chloride 50 ML IV (01:02)
[2022-05-04] MEDS: Enoxaparin Sodium 40 MG/0.4 ML SYRINGE SUBCUT (01:23)
[2022-05-04] MEDS: metroNIDAZOLE/NS 500 MG/100 ML PIGGYBACK 100 MG IV ×2 (01:24→08:05)
[2022-05-04 07:15] VITALS: BP 144/87; PULSE 73; RESP 20; TEMP 36.7; O2SAT 98
--- NOTE | 2022-05-04 08:49 | MHC.CM.PN ---
Met with patient regarding dc planning. Patient lives with his adult daughter and grandson, works time broker, and is independent. Patient does not have a PCP, advised patient to call phone number on insurance card to determine if one was assigned to him. He is agreeable with plan and also plans to reach out to find a PCP from [facility] system, does not want assistance with finding PCP. Assisted shemar in completing HCP, he chose his brother, Rachid as HCP agent. Provided patient with original and copies and placed a copy in the chart.
[2022-05-04] MEDS: 0.9 % Sodium Chloride Flush 3 ML SYRINGE IVFLUSH (09:22)
--- NOTE | 2022-05-04 09:45 | PM.DS ---
DS: Providers Provider Date of Service: 05/04/22 Date of admission: 05/02/22 00:22 Primary care physician: [facility] DS: Diagnosis Discharge Diagnosis (1) Diverticulitis: Status: Acute DS: Summary Hospital Course Hospital Course: [facility] Complaint: Abdominal pain This is a 57-year-old male with no significant past medical history presents to the hospital with complaints of abdominal pain.? Patient reports the abdominal pain is localized in the umbilical region radiating to the left, associated with nausea, no vomiting, low appetite.? A low oral intake.? Denies any fever but has chills, no chest pain, no shortness of breath, no diarrhea or constipation, no urinary symptoms and no lower extremity edema.? No headache or change in vision. On arrival to the ED patient hemodynamically stable with no significant abnormal vitals Labs are significant for WBC count 15.6, BUN of 23, creatinine of 1.25, lactic acid of 2.6, UA negative Abdominal pelvic CT shows who acute uncomplicated sigmoid diverticulitis involving a short segment of the sigmoid colon located in the left pelvis, no evidence of perforation or abscess. Hospital course: Patient was admitted for acute diverticulitis without complications and treated with IV Ceftriaxone and Metronidazol with good response, WBC has been trending down, he has no fever, pain has signficantly improved and diet is advanced to regular diet and is tolerating. He jaylin be sent home with Oral Levaquin and Flagyl for another 5 days and is asked to follow up with PCP and to discuss screening colonoscopy with PCP. Oxycodone 5 q 6 PRN for pain # 10, he desires to go home Time Spent with Patient Time attestation: Total time spent providing and/or coordinating discharge services: Discharge coordination time: Greater than 30 minutes Quality: Safe Use of Opioids Does Pt have an Active Cancer Diagnosis on the Problem List?: No Quality: Stroke Does the patient have a stroke diagnosis?: No Physical Exam Vital Signs: Vital Signs: Last Vital Signs Temp 98.0 F 05/04/22 07:15 Pulse 73 05/04/22 07:15 Resp 20 05/04/22 07:15 BP 144/87 H 05/04/22 07:15 Pulse Ox 98 05/04/22 07:15 O2 Del Method 05/04/22 07:15 BMI result Body Mass Index 23.3 DS: Data Data Completed and Pending Labs on day of discharge: Preliminary micro results at discharge 05/01/22 21:18 Blood Culture - Preliminary Blood - Venous No growth after 48 hours. 05/01/22 21:16 Blood Culture - Preliminary Blood - Venous No growth after 48 hours. Discharge Plan Discharge Anticipated Discharge Date/Time: 05/04/22 09:38 Patient Disposition: Home Health Service Discharge Diagnosis: Acute diverticulitis Referrals: [facility] [Primary Care Provider] - 1 Week Discharge Medications: New oxycodone 5 mg tablet 5 mg PO Q6H PRN (Reason: pain) Qty: 10 0RF Rx Instructions: Partial Fill upon patient request. levofloxacin 500 mg tablet 500 mg PO DAILY 5 Days Qty: 5 0RF metronidazole 500 mg tablet 500 mg PO BID 5 Days Qty: 10 0RF Discharge Orders: Discharge Order (Routine); Ordered 05/04/22 Ordered By: Reji Purvis Diet: Advance to usual diet Activity on Discharge: As tolerated Stand Alone Forms: Patient Portal Discharge page Care Plan Goals: Full recovery from acute diverticulitis Health Concerns: diverticulitis Plan of Treatment: take Flagyl and Levaquin as directed and follow up with her primary care doctor and make sure to be set up for routine screening colonoscopy Assessment: as above
== END 2022-05-04 12:51 | disposition home health service (06) | DRG 244 ==
LOC: HO.ED 05-02 00:07 → HO.EDOVER 05-02 00:30
PROVIDERS: Admitting Provider Internal Medicine; Emergency Provider Internal Medicine; Visit Provider Internal Medicine
DX: K57.32 Diverticulitis of large intestine without perforation or abscess without bleeding (principal); E87.2 Acidosis; F17.210 Nicotine dependence, cigarettes, uncomplicated; Z71.6 Tobacco abuse counseling; Z20.822 Contact with and (suspected) exposure to COVID-19; Z79.899 Other long term (current) drug therapy
CPT/HCPCS: 36415; 74176; 80048; 80053; 80307; 81001; 83605; 83690; 85025; 85027; 87040; 87635; 96361; 96365; 96375; 96376; 99285; J0696; J1650; J2270; J2405; J2543

== ENCOUNTER 2022-05-31 10:51 | Emergency (ER) | payer MEDICAID, SELFPAY ==
[2022-05-31 12:03] VITALS: BP 120/79; PULSE 80; RESP 17; TEMP 36.5; O2SAT 99; BMI 21.6
[2022-05-31 12:26] LABS: MANUAL DIFF FLAG NO
[2022-05-31 12:28] LABS: Basophils Percent Auto 0.5 % (0-2); Eosinophils Absolute Auto 0.2 X10*3/uL (0.0-0.4); Eosinophils Percent Auto 1.9 % (0-4); Hematocrit 45.1 % (42.0-52.0); Hemoglobin 14.5 g/dl (14.0-18.0); Imm Gran Abs Auto 0.06 X10*3/uL (0.00-0.03); Imm Gran Pct Auto 0.7 % (0.0-0.4); Lymphocytes Absolute Auto 2.2 X10*3/uL (1.2-4.9); Lymphocytes Percent Auto 25.8 % (20-40); Mean Corpuscular HGB Conc 32.2 g/dl (31.0-36.0); Mean Corpuscular Hemoglobin 27.2 pg (27.0-33.0); Mean Corpuscular Volume 84.5 fL (80.0-98.0); Mean Platelet Volume 8.5 fL (9.4-12.4); Monocytes Absolute Auto 0.8 X10*3/uL (0.1-1.2); Neutrophils Absolute Auto 5.1 x10*3/uL (2.0-8.3); Neutrophils Percent Auto 61.1 % (45-73); Platelet Count 211 X10*3/uL (160-400); Red Blood Count 5.34 X10*6/uL (4.60-5.80); Red Cell Distribution Width 13.6 % (11.0-16.0); White Blood Count 8.3 X10*3/uL (4.8-10.8)
[2022-05-31 12:48] LABS: Alanine Aminotransferase 11 U/L (0-40); Albumin Level 4.4 g/dL (3.5-5.0); Alkaline Phosphatase 72 U/L (39-117); Anion Gap 13 (12-20); Aspartate Amino Transferase 14 U/L (5-37); Bilirubin Total 0.4 mg/dL (0.0-1.0); Blood Urea Nitrogen 17 mg/dL (9-16); Calcium 9.5 mg/dL (8.4-10.2); Carbon Dioxide 27 mmol/L (22-29); Chloride 105 mmol/L (96-108); Creatinine Clr Calc Pharmacy 79.1; Estimated Glomerular Filt Rate > 60; Glucose Random 90 mg/dL (60-115); Potassium 4.2 mmol/L (3.3-5.1); Sodium 141 mmol/L (135-145); Total Protein 7.4 g/dL (6.5-8.0)
== END 2022-05-31 14:25 | disposition left against medical advice (07) ==
PROVIDERS: Emergency Provider Emergency Medicine; PCP Emergency Medicine
DX: R10.32 Left lower quadrant pain (principal); F17.200 Nicotine dependence, unspecified, uncomplicated; F12.90 Cannabis use, unspecified, uncomplicated
CPT/HCPCS: 36415; 80053; 85025; 99281; 99283

== ENCOUNTER 2022-06-01 08:33 | Outpatient (REF) | payer MEDICAID, SELFPAY ==
--- NOTE | ~2022-06-01 | XR_ITS ---
EXAMINATION: XR SHOULDER, RIGHT XR HUMERUS, RIGHT CLINICAL INFORMATION: Pain COMPARISON: None TECHNIQUE: Right humerus 2 views and right shoulder 4 views. FINDINGS: Right Shoulder: There is mild reduction in the glenohumeral joint space with periarticular spurring. No visible acute fracture, dislocation or subluxation seen. No lytic process seen. The soft tissues are normal. Right Humerus: There is no visible acute fracture or bony abnormality. There is a soft tissue bulge along the mid to lower half of the upper extremity suspicious for a biceps rupture or soft tissue mass. XR/XR shoulder RT min 2V IMPRESSION: Mild degenerative changes glenohumeral joint. No visible acute fracture, dislocation or subluxation seen. There is no visible fracture involving the right humerus. There is a soft tissue bulge along the distal right arm question biceps rupture versus mass. If patient has pain in this region recommend MRI for further evaluation.
--- NOTE | ~2022-06-01 | XR_ITS ---
EXAMINATION: XR SHOULDER, RIGHT XR HUMERUS, RIGHT CLINICAL INFORMATION: Pain COMPARISON: None TECHNIQUE: Right humerus 2 views and right shoulder 4 views. FINDINGS: Right Shoulder: There is mild reduction in the glenohumeral joint space with periarticular spurring. No visible acute fracture, dislocation or subluxation seen. No lytic process seen. The soft tissues are normal. Right Humerus: There is no visible acute fracture or bony abnormality. There is a soft tissue bulge along the mid to lower half of the upper extremity suspicious for a biceps rupture or soft tissue mass. XR/XR humerus RT IMPRESSION: Mild degenerative changes glenohumeral joint. No visible acute fracture, dislocation or subluxation seen. There is no visible fracture involving the right humerus. There is a soft tissue bulge along the distal right arm question biceps rupture versus mass. If patient has pain in this region recommend MRI for further evaluation.
== END 2022-06-01 08:34 | disposition home or self-care (01) ==
LOC: HO.XRAY 08:33
PROVIDERS: Visit Provider Emergency Medicine
DX: M25.511 Pain in right shoulder (principal); S46.111A Strain of muscle, fascia and tendon of long head of biceps, right arm, initial encounter
CPT/HCPCS: 73030; 73060

== ENCOUNTER → 2022-06-23 14:14 | Outpatient (BNVA) | payer MEDICAID, SELFPAY | PROVIDERS: PCP Emergency Medicine; Visit Provider Physician Assistant | DX: S46.111A Strain of muscle, fascia and tendon of long head of biceps, right arm, initial encounter (principal); M54.12 Radiculopathy, cervical region | CPT/HCPCS: 99202 ==

== ENCOUNTER 2023-05-08 10:05 | Outpatient (REF) | payer MEDICAID, SELFPAY ==
[2023-05-08 13:53] LABS: Basophils Absolute Auto 0.1 X10*3/uL (0.0-0.2); Basophils Percent Auto 0.6 % (0-2); Eosinophils Absolute Auto 0.2 X10*3/uL (0.0-0.4); Eosinophils Percent Auto 2.4 % (0-4); Hematocrit 48.5 % (42.0-52.0); Hemoglobin 15.5 g/dl (14.0-18.0); Imm Gran Abs Auto 0.05 X10*3/uL (0.00-0.03); Imm Gran Pct Auto 0.6 % (0.0-0.4); Lymphocytes Absolute Auto 1.6 X10*3/uL (1.2-4.9); Lymphocytes Percent Auto 18.1 % (20-40); MANUAL DIFF FLAG SCAN; Mean Corpuscular Hemoglobin 26.7 pg (27.0-33.0); Mean Corpuscular Volume 83.5 fL (80.0-98.0); Monocytes Absolute Auto 0.7 X10*3/uL (0.1-1.2); Monocytes Percent Auto 8.3 % (2-11); Neutrophils Absolute Auto 6.1 x10*3/uL (2.0-8.3); PLT CLUMP 1; Red Blood Count 5.81 X10*6/uL (4.60-5.80); Red Cell Distribution Width 14.3 % (11.0-16.0); SCAN SMEAR FLAG 1
[2023-05-08 13:59] LABS: White Blood Count 8.7 X10*3/uL (4.8-10.8)
[2023-05-08 14:08] LABS: Estimated Average Glucose 105 mg/dL; Hemoglobin A1c % 5.3 %
[2023-05-08 14:18] LABS: SLIDE REVIEW VERIFIED
[2023-05-08 14:20] LABS: Alanine Aminotransferase 14 U/L (0-40); Albumin Level 4.2 g/dL (3.5-5.0); Alkaline Phosphatase 70 U/L (39-117); Anion Gap 14 (12-20); Aspartate Amino Transferase 16 U/L (5-37); Bilirubin Total 0.7 mg/dL (0.0-1.0); Blood Urea Nitrogen 17 mg/dL (9-16); Calcium 9.5 mg/dL (8.4-10.2); Carbon Dioxide 22 mmol/L (22-29); Chloride 107 mmol/L (96-108); Cholesterol 201 mg/dL; Estimated Glomerular Filt Rate > 60; Glucose Random 101 mg/dL (60-115); HDL Cholesterol 48 mg/dL; LDL Cholesterol Calculated 128 mg/dl; Potassium 4.2 mmol/L (3.3-5.1); Sodium 139 mmol/L (135-145); Total Protein 7.5 g/dL (6.5-8.0); Triglycerides 125 mg/dL
[2023-05-08 14:29] LABS: TSH reflex Free T4 2.55 uIU/mL (0.32-4.0)
[2023-05-08 15:11] LABS: Syphilis Screen Nonreactive (Nonreactive)
[2023-05-08 15:22] LABS: Folate 7.6 ng/mL (> or = 4.0); Vitamin B12 867 pg/mL (200-900)
[2023-05-08 15:42] LABS: CT PCR NOT DETECTED (Not Detect.); NG PCR NOT DETECTED (Not Detect.)
[2023-05-09 10:34] LABS: Free Prostate Spec Ag 0.2 ng/mL; Percent Free Prostate Spec Ag 33 % (calc) (>25); Prostate Specific Ag Total 0.6 ng/mL (< OR = 4.0)
[2023-05-10 03:57] LABS: HBc Num1 0.14 S/CO (0.00-0.79); HBsAGNum1 0.27 S/CO (0.00-0.99); HIV AB/AG Nonreactive (Nonreactive); HIV Num 1 0.06 S/CO (0.00-0.99); Hepatitis B Core Antibody Nonreactive (Nonreactive); Hepatitis B Surface Antigen Negative (Negative); ~Hepatitis B Surface Antibody NONREACTIVE (Nonreactive)
[2023-05-10 03:58] LABS: ~HepC Num1 0.15 S/CO (0.00-0.79); ~Hepatitis C Antibody Nonreactive (Nonreactive)
[2023-05-16 07:24] LABS: VITAMIN D (1,25 OH) D3 50 pg/mL; Vit D (1,25-Dihydroxy) Total 50 pg/mL (18-72); Vitamin D (1,25 OH) D2 <8 pg/mL
== END 2023-05-08 10:06 | disposition home or self-care (01) ==
LOC: HO.HHCL 10:05
PROVIDERS: Visit Provider Student in an Organized Health Care Education/Training Program
DX: Z00.00 Encounter for general adult medical examination without abnormal findings (principal)
CPT/HCPCS: 0353U; 80053; 80061; 82274; 82607; 82652; 82746; 83036; 84154; 84443; 85025; 86704; 86706; 86780; 86803; 87340; 87389

== ENCOUNTER 2023-05-10 09:16 | Outpatient (REF) | payer MEDICAID, SELFPAY ==
--- NOTE | ~2023-05-10 | XR_ITS ---
EXAMINATION: XR CHEST CLINICAL INFORMATION: Night sweats. COMPARISON: None available. TECHNIQUE: 2 views of the chest were obtained. FINDINGS: Normal appearance of the cardiomediastinal silhouette. No focal infiltrate, pleural effusion or pneumothorax. Very subtle biapical subpleural thickening. No acute osseous findings. Upper abdomen is within normal limits XR/XR chest 2V IMPRESSION: Minimal nonspecific biapical subpleural thickening. Otherwise, clear lungs.
== END 2023-05-10 09:17 | disposition home or self-care (01) ==
LOC: HO.HHCX 09:16
PROVIDERS: Visit Provider Student in an Organized Health Care Education/Training Program
DX: R61 Generalized hyperhidrosis (principal); R68.3 Clubbing of fingers
CPT/HCPCS: 71046

== ENCOUNTER 2023-05-31 07:35 | Outpatient (REF) | payer MEDICAID, SELFPAY ==
--- NOTE | ~2023-05-31 | CT_ITS ---
EXAMINATION: CT ABDOMEN AND PELVIS WITH CONTRAST CLINICAL INFORMATION: 3 months of abdominal pain. COMPARISON: CT scan of the abdomen and pelvis dated 05/01/2022. TECHNIQUE: Multidetector volumetric images were obtained from the superior aspect of the liver through the pubic symphysis following administration 85 mL of Omnipaque 350 intravenous contrast. Sagittal and coronal reformatted images were obtained on the technologist's workstation. Oral contrast: Yes. This CT examination was performed using dose optimization techniques as appropriate, variously including the following: *Automated exposure control *Adjustment of mA and/or kV according to patient size (this includes techniques or standardized protocols for targeted exams where dose is matched to indication/reason for exam; i.e. extremities or head) *Use of iterative reconstruction technique DLP: 271 mGy-cm FINDINGS: LUNG BASES: Mild centrilobular paraseptal emphysema in the visualized lung bases. LIVER, GALLBLADDER, AND BILIARY TREE: Unremarkable. PANCREAS: Unremarkable. SPLEEN: Unremarkable. ADRENAL GLANDS: Unremarkable. KIDNEYS AND URETERS: The kidneys are normal in size, shape, and attenuation. No hydronephrosis, hydroureter, or calculi seen. No perinephric stranding. BLADDER: Decompressed without focal abnormality. GASTROINTESTINAL TRACT: The stomach, small bowel and appendix are unremarkable. The colon shows mild to moderate diverticulosis distally in the descending and sigmoid colon, most pronounced in the sigmoid colon without surrounding abnormality. The rectum is unremarkable. ABDOMINAL WALL: No significant hernia is appreciated. LYMPH NODES: No lymphadenopathy. VASCULAR: Unremarkable. PELVIC VISCERA: Unremarkable. OSSEOUS STRUCTURES: Unremarkable. CT/CT abdomen pelvis w IV con IMPRESSION: 1. No acute intra-abdominal/pelvic abnormality to explain the patient's pain. 2. Mild to moderate distal colonic diverticulosis without evidence for acute diverticulitis. 3. Mild centrilobular/paraseptal emphysema in the visualized lung bases.
[2023-05-31] MEDS: Barium Sulfate Oral (Mocha) 450 ML ORAL.SUSP 900 ML PO (10:34)
[2023-05-31] MEDS: iohexoL 350 MG/ML 100 ML INFUS..BTL IV (11:36)
== END 2023-05-31 07:36 | disposition home or self-care (01) ==
LOC: HO.CT 07:35
PROVIDERS: PCP Emergency Medicine; Visit Provider Student in an Organized Health Care Education/Training Program
DX: R10.9 Unspecified abdominal pain (principal); J43.8 Other emphysema
CPT/HCPCS: 74177; Q9967

== ENCOUNTER 2023-06-02 15:31 | Outpatient (REF) | payer MEDICAID, SELFPAY ==
[2023-06-02 16:18] LABS: MANUAL DIFF FLAG NO
[2023-06-02 16:30] LABS: Basophils Absolute Auto 0.1 X10*3/uL (0.0-0.2); Basophils Percent Auto 0.8 % (0-2); Eosinophils Absolute Auto 0.2 X10*3/uL (0.0-0.4); Eosinophils Percent Auto 1.6 % (0-4); Hematocrit 45.6 % (42.0-52.0); Hemoglobin 14.5 g/dl (14.0-18.0); Imm Gran Abs Auto 0.06 X10*3/uL (0.00-0.03); Imm Gran Pct Auto 0.6 % (0.0-0.4); Lymphocytes Absolute Auto 2.5 X10*3/uL (1.2-4.9); Lymphocytes Percent Auto 27.3 % (20-40); Mean Corpuscular HGB Conc 31.8 g/dl (31.0-36.0); Mean Corpuscular Hemoglobin 27.1 pg (27.0-33.0); Mean Corpuscular Volume 85.2 fL (80.0-98.0); Monocytes Absolute Auto 0.8 X10*3/uL (0.1-1.2); Monocytes Percent Auto 8.3 % (2-11); Neutrophils Absolute Auto 5.7 x10*3/uL (2.0-8.3); Neutrophils Percent Auto 61.4 % (45-73); Platelet Count 261 X10*3/uL (160-400); Red Blood Count 5.35 X10*6/uL (4.60-5.80); Red Cell Distribution Width 14.6 % (11.0-16.0); White Blood Count 9.3 X10*3/uL (4.8-10.8)
[2023-06-02 17:33] LABS: Lactate Dehydrogenase 173 U/L (118-273)
[2023-06-05 16:19] LABS: TS Negative Control Passed; TS Panel A 0; TS Panel B 0; TS Positive Control Passed; TSpotTB Negative (Negative)
[2023-06-08 08:54] LABS: VITAMIN D (1,25 OH) D3 41 pg/mL; Vit D (1,25-Dihydroxy) Total 41 pg/mL (18-72); Vitamin D (1,25 OH) D2 <8 pg/mL
== END 2023-06-02 15:32 | disposition home or self-care (01) ==
LOC: HO.HHCL 15:31
PROVIDERS: Visit Provider Student in an Organized Health Care Education/Training Program
DX: Z00.00 Encounter for general adult medical examination without abnormal findings (principal); Z11.1 Encounter for screening for respiratory tuberculosis; R61 Generalized hyperhidrosis
CPT/HCPCS: 36415; 82652; 83615; 85025; 86481

== ENCOUNTER 2023-06-05 08:54 | Outpatient (REF) | payer MEDICAID, SELFPAY ==
[2023-06-05 11:46] LABS: OBS Int Ctl Valid YES; OBS1 NEGATIVE (NEGATIVE)
== END 2023-06-05 08:55 | disposition home or self-care (01) ==
LOC: HO.HHCLNP 08:54
PROVIDERS: Visit Provider Student in an Organized Health Care Education/Training Program
DX: Z00.00 Encounter for general adult medical examination without abnormal findings (principal)
CPT/HCPCS: 82272

== ENCOUNTER 2023-06-09 08:42 | Outpatient (REF) | payer MEDICAID, SELFPAY ==
--- NOTE | ~2023-06-09 | CT_ITS ---
EXAMINATION: CT CHEST WITHOUT CONTRAST CLINICAL INFORMATION: Pleural thickening. COMPARISON: Chest x-ray 05/10/2023. TECHNIQUE: Multidetector volumetric CT imaging of the chest was done. Axial MIP volume rendering provided. Sagittal and coronal reformatted images were obtained. This CT examination was performed using dose optimization techniques as appropriate, variously including the following: *Automated exposure control *Adjustment of mA and/or kV according to patient size (this includes techniques or standardized protocols for targeted exams where dose is matched to indication/reason for exam; i.e. extremities or head) *Use of iterative reconstruction technique. DLP: 169 mGy-cm. FINDINGS: PASSENGER SERVICE REPRESENTATIVE: Well-inflated lungs. LUNGS: The lungs are hyperinflated with paraseptal emphysema. There is bilateral apical parenchymal scarring. There are scattered bilateral pulmonary cysts in both lung apices, lingula, right middle lobe and right lower lobe. No pulmonary nodule, mass or consolidation seen. There is bilateral lower lobe mild atelectasis and platelike atelectasis left posterior basal segment. MEDIASTINUM: The thyroid lobes are symmetrical and normal. Central trachea and the bronchi are widely patent. Heart size and the great vessels are normal caliber. No pericardial effusion seen. No abnormal size mediastinal or hilar lymphadenopathy seen. CORONARY ARTERY CALCIFICATION: None visualized on this study. PLEURA: There is no pleural effusion. No pleural mass or thickening. AXILLA: There are small shotty lymph nodes in bilateral axilla. UPPER ABDOMEN: Visualized liver, spleen, pancreas and bilateral adrenal glands are unremarkable. OSSEOUS STRUCTURES: No aggressive lytic or sclerotic process seen. CT/CT chest wo IV con IMPRESSION: 1. Paraseptal emphysema with bilateral apical parenchymal scarring and scattered pulmonary cysts. 2. There is bilateral lower lobe mild bronchiectasis. Platelike atelectasis left posterior basal segment. 3. No abnormal mediastinal or axillary lymphadenopathy seen. Fleischner guidelines were followed.
== END 2023-06-09 08:43 | disposition home or self-care (01) ==
LOC: HO.CT 08:42
PROVIDERS: Visit Provider Student in an Organized Health Care Education/Training Program
DX: J92.9 Pleural plaque without asbestos (principal); Z72.0 Tobacco use
CPT/HCPCS: 71250

== ENCOUNTER 2023-07-05 08:35 | Outpatient (AMB) | payer MEDICAID, SELFPAY ==
--- NOTE | 2023-07-05 08:49 | MHC.OFFVIS ---
Intake Vital Signs 07/05/23 08:53 Height 5 ft 5 in Weight 138 lb 14.259 oz BMI 23.1 BP 98/60 Blood Pressure Location Lt brachial Position Sitting Pulse 88 Pulse Source Doppler Pulse Oximetry (%) 98 Oxygen Delivery Method Room Air Intake Visit Reasons: Bronchiectasis Allergies No Known Allergies Allergy (Verified 07/05/23 08:57) HPI Bronchiectasis HPI Details 58-year-old gentleman active 30+ pack-year smoker referred for evaluation dyspnea exertion, clubbing, and emphysema noted on CT scan. Patient denies prior personal history of lung disease. His not sure about family history of lung disease. He was employed with no exposure to industrial dusts. Patient denies environmental allergies. He also has no pets. Patient does complain of dyspnea on exertion, especially after climbing several flights of stairs, as he lives on the 5th floor. He does complain of chronic mild cough productive of small amount brownish to greenish sputum with no recent changes. [facility] Medical History (Updated 07/05/23 @ 09:22 by Maciej Wick MD) No known health problems Surgical History (Updated 05/02/22 @ 06:50 by Dasha Diaz MD) No pertinent past surgical history Family History (Updated 05/02/22 @ 06:50 by Dasha Diaz MD) Other No family history of coronary artery disease Social History (Updated 07/05/23 @ 08:55 by Yoselin Amaro Pat) Patient Tobacco Use Status: Current someday Tobacco user Cigarettes Per Day: 5 Substance Use Type: Marijuana service: No Current occupational status: employed Review of Systems Const Denies daytime sleepiness, Denies excessive sweating, Denies fatigue, Denies fever(s), Denies lethargy, Denies malaise, Denies night sweats, Denies snoring and Denies weight loss Eyes Denies blurry vision and Denies itchy eyes ENT Denies nasal congestion, Denies post nasal drip, Denies sinus pain, Denies sinus pressure and Denies other ( Thrush) Card Denies chest pain, Denies pedal edema, Denies dyspnea, Reports dyspnea on exertion, Denies orthopnea and Denies paroxysmal nocturnal dyspnea Resp Denies cough, Denies hemoptysis, Denies excessive phlegm production, Denies dyspnea, Reports dyspnea on exertion, Denies snoring and Denies wheezing GI Denies abdominal pain and Denies heartburn Musc Denies myalgias, Denies arthralgias and Denies joint swelling Skin/Breast Denies rash Neuro Denies memory loss and Denies seizure-like activity Psych Denies abnormal sleep pattern, Denies anxiety and Denies memory loss Endo Denies excessive sweating, Denies fatigue and Denies heat intolerance Tang/Lymph Denies easy bruising Aller/Immun Denies itchy eyes, Denies seasonal rhinorrhea and Denies wheezing Physical Exam Vital Signs: Last Vital Signs Pulse 88 07/05/23 08:53 BP 98/60 07/05/23 08:53 Pulse Ox 98 07/05/23 08:53 Oxygen Delivery Method Room Air 07/05/23 08:53 BMI result Body Mass Index 23.1 Const General: no acute distress and alert Nutritional Appearance: not obese Orientation/consciousness: Other orientation findings ( oriented) HEENT Head: Yes atraumatic Eyes General: appearance normal, both eyes and all related structures Sclerae: sclerae normal EOM: EOMs intact bilaterally Neck Neck: Yes supple Lymphatic: no lymphadenopathy noted Resp Effort & Inspection: normal respiratory effort and no use of accessory muscles Auscultation: clear to auscultation bilaterally Cardio Rate: regular rate Rhythm: regular rhythm Heart sounds: no gallops, no murmurs and no rubs Skin General skin exam: other ( warm) Extrem General: Yes clubbing, No cyanosis and No edema Assessment & Plan Assessment & Plan (1) Emphysema lung: Code(s): J43.9 - Emphysema, unspecified Plan: Likely underlying COPD of unclear severity. Will obtain full PFT. Will start on empiric Anoro. Orders: Orders PFT pulmonary function test Today J43.9 - Emphysema, unspecified Medications: New umeclidinium-vilanterol 62.5-25 mcg/actuation (Anoro Ellipta) 1 inh inhalation DAILY 1 ea 6RF 30 days Coding Level of Care Code New Pt Level 3 (26115) Diagnoses Emphysema lung J43.9
[2023-07-05 08:53] VITALS: BP 98/60; PULSE 88; O2SAT 98; BMI 23.1
== END 2023-07-05 09:24 | disposition home or self-care (01) ==
PROVIDERS: PCP Emergency Medicine; Visit Provider Internal Medicine Pulmonary Disease
DX: J43.9 Emphysema, unspecified (principal)
CPT/HCPCS: 99203

== ENCOUNTER → 2023-07-05 08:35 | Outpatient (BNVA) | payer MEDICAID, SELFPAY | PROVIDERS: PCP Emergency Medicine; Visit Provider Internal Medicine Pulmonary Disease | DX: J43.9 Emphysema, unspecified (principal) | CPT/HCPCS: 99202 ==

== ENCOUNTER 2023-07-10 08:48 | Outpatient (REF) | payer MEDICAID, SELFPAY ==
--- NOTE | ~2023-07-10 | XR_ITS ---
EXAMINATION: XR LUMBOSACRAL SPINE CLINICAL INFORMATION: Reason for Exam PAIN COMPARISON: CT abdomen pelvis 05/31/2023 TECHNIQUE: 3 views of the lumbar spine FINDINGS: 5 nonrib-bearing lumbar-type vertebral bodies. Vertebral body heights are maintained. Alignment is maintained. Mild degenerative disc disease with small endplate osteophytes at L4 and L5. Disc space heights are maintained. Few nonspecific calcifications in the left hemiabdomen, possibly inspissated fecal material within diverticuli, when compared to prior. Trace asymmetric sclerosis of the left sacroiliac joint. Paravertebral soft tissues are unremarkable. XR/XR lumbar spine 2-3V IMPRESSION: 1. Mild spondylosis of the lumbar spine, as above detailed. Disc space heights are maintained. 2. Trace asymmetric sclerosis of the left sacroiliac joint which may reflect sequelae of prior sacroiliitis or osteoarthritis.
== END 2023-07-10 08:49 | disposition home or self-care (01) ==
LOC: HO.HHCX 08:48
PROVIDERS: Visit Provider Student in an Organized Health Care Education/Training Program
DX: M54.50 Low back pain, unspecified (principal)
CPT/HCPCS: 72100

== ENCOUNTER → 2023-07-12 09:00 | Outpatient (REF) | payer MEDICAID, SELFPAY ==
--- NOTE | 2023-07-12 09:03 | CA_ITS ---
Transthoracic Echocardiogram Patient (Last, First, Middle): Dilan Casper A Gender: Male Date of : 1965 Age: 58 Procedure Date: 07/12/2023 Procedure Type: Transthoracic Echocardiogram Location: OP Height: 165.1 cm Weight: 63.5 kg BSA: 1.70 m2 Heart Rate: bpm BP: 110 / 70 mmHg Director Broadcast: TO Referring MD: Gianna Amado MD Symptoms: R06.00 DYSPNEA R68.3 FINER CLUBBING Study Quality: Fair ECG Rhythm: Sinus Conclusions: - The left ventricular systolic function is normal. The calculated ejection fraction is 61% by biplane method. - No obvious valvular pathology seen on this study. Findings Left Ventricle Normal left ventricular cavity size. There is normal left ventricular wall thickness. The left ventricular systolic function is normal. The calculated ejection fraction is 61% by biplane method. There is no evidence of regional wall motion abnormalities. Diastolic function is normal for age. Right Ventricle Normal right ventricular cavity size and systolic function. Atria Both atria are normal in size. Aortic Valve There is a normal trileaflet aortic valve. There is no aortic valve stenosis. There is no aortic valve regurgitation. Mitral Valve The mitral valve appears normal. There is no mitral valve regurgitation. There is no mitral valve stenosis. Pulmonic Valve The pulmonic valve is likely normal. Tricuspid Valve There is no tricuspid valve regurgitation. Tricuspid regurgitation envelope is inadequate for calculation of right ventricular systolic pressure. Great Vessels The sinuses of valsalva and asc aorta are normal in size. Venous The inferior vena cava is mildly dilated and collapses greater than 50% with inspiration. Pericardium/Pleural There is no evidence of pericardial effusion. Prior Study Comparison No prior study available for comparison. Recommendations, Care & Conclusions No obvious valvular pathology seen on this study. Measurements 2D Linear Measurements IVSd: 1.00 0.6-0.9/0.6-1.0 cm LVIDd: 4.40 3.9-5.3/4.2-5.9 cm LVIDd Index: 2.59 2.4-3.2/2.2-3.1 cm/m2 LVIDs: 2.90 2.0-3.6 cm LVPWd: 0.90 0.7-1.1 cm LA Diam: 3.00 2.7-3.8/3.0-4.0 cm LAIDs Index: 1.76 1.5-2.3 cm/m2 LV Mass: 171.46 67-162/88-224 g LV Mass Index: 100.86 43-95/49-115 g/m2 LVOT Diam: 2.10 3.0+(-)1.3 cm 2D Systolic Function EF 4C: 58.60 >55% EF 2C: 64.10 >55% EF BiP: 60.90 >55% Mitral Valve MV Pk E: 0.74 MV PK A: 0.79 MV Decel Time: 153.00 E/A: 0.90 E'Lateral: 11.60 E'Medial: 9.79 E/E' Med: 7.50 E/E' Lat: 6.40 PHT: 45.00 MVA PHT: 4.89 Decel Faulkner: 4.81 Aortic Valve AoV Pk Aguila: 1.41 AoV Mn Aguila: 0.96 AoV VTI: 0.27 AoV Pk Grad: 8.00 Aov Mn Grad: 4.00 ABDI Cont.VTI: 2.83 LVOT LVOT Pk Aguila: 1.14 LVOT Mn Aguila: 0.70 LVOT VTI: 0.22 LVOT Pk Grad: 5.00 LVOT Mn Grad: 2.00 LVOT Diam: 2.10 LVOT Area: 3.46 Diastolic Function MV Pk E: 0.74 MV Pk A: 0.79 E/A: 0.90 E'Medial: 9.79 E/E' Med: 7.50 E' Laterial: 11.60 E/E' Lat: 6.40 Right Ventricle TAPSE (mm): 27.20 TVS' Aguila: 13.10 Tricuspid Valve RA Press: 8.00 Great Vessels Aorta Sinus of Valsalva: 3.40 2.0-3.5 cm Ao Asc: 3.70 2.1-3.4 cm Updated in Other Vendor System with Status of Final Satay Carballo MD electronically signed on 07/12/2023 4:24:29 PM with status of Final
== END ==
LOC: HO.CARD 09:00
PROVIDERS: Visit Provider Student in an Organized Health Care Education/Training Program
DX: R06.00 Dyspnea, unspecified (principal)
CPT/HCPCS: 93306

== ENCOUNTER → 2023-07-12 09:03 | Outpatient (BNV) | payer MEDICAID, SELFPAY | PROVIDERS: Visit Provider Internal Medicine | DX: R06.00 Dyspnea, unspecified (principal) | CPT/HCPCS: 93306 ==

== ENCOUNTER 2023-08-17 07:42 | Outpatient (AMB) | payer MEDICAID, SELFPAY ==
[2023-08-17 09:00] VITALS: BP 117/62; PULSE 90; O2SAT 96; BMI 51.0
--- NOTE | 2023-08-17 09:00 | MHC.OFFVIS ---
Intake Vital Signs 08/17/23 09:00 Height 5 ft 5 in Weight 306 lb 7.08 oz BMI 51.0 BP 117/62 Blood Pressure Location Lt brachial Position Sitting Pulse 90 Pulse Source Doppler Pulse Oximetry (%) 96 Oxygen Delivery Method Room Air Intake Visit Reasons: Same day PFT Allergies No Known Allergies Allergy (Verified 08/17/23 09:04) HPI Same day PFT HPI Details 58-year-old gentleman active 30+ pack-year smoker followed for underlying moderate COPD. At the last office visit patient has completed his PFT. He also started on Anoro was some symptomatic improvement, however he has lost Anoro after the 1st week and has been without it for the rest of the months. He denies acute exacerbations. [facility] Medical History (Updated 08/17/23 @ 09:21 by Maciej Wick MD) No known health problems Surgical History (Updated 05/02/22 @ 06:50 by Dasha Diaz MD) No pertinent past surgical history Family History (Updated 05/02/22 @ 06:50 by Dasha Diaz MD) Other No family history of coronary artery disease Social History Patient Tobacco Use Status: Current someday Tobacco user Cigarettes Per Day: 5 Substance Use Type: Marijuana service: No Current occupational status: employed Review of Systems Const Denies daytime sleepiness, Denies excessive sweating, Denies fatigue, Denies fever(s), Denies lethargy, Denies malaise, Denies night sweats, Denies snoring and Denies weight loss Eyes Denies blurry vision and Denies itchy eyes ENT Denies nasal congestion, Denies post nasal drip, Denies sinus pain, Denies sinus pressure and Denies other ( Thrush) Card Denies chest pain, Denies pedal edema, Denies dyspnea, Denies orthopnea and Denies paroxysmal nocturnal dyspnea Resp Denies cough, Denies hemoptysis, Denies excessive phlegm production, Denies dyspnea, Denies snoring and Denies wheezing GI Denies abdominal pain and Denies heartburn Musc Denies myalgias, Denies arthralgias and Denies joint swelling Skin/Breast Denies rash Neuro Denies memory loss and Denies seizure-like activity Psych Denies abnormal sleep pattern, Denies anxiety and Denies memory loss Endo Denies excessive sweating, Denies fatigue and Denies heat intolerance Tang/Lymph Denies easy bruising Aller/Immun Denies itchy eyes, Denies seasonal rhinorrhea and Denies wheezing Physical Exam Vital Signs: Last Vital Signs Pulse 90 08/17/23 09:00 BP 117/62 08/17/23 09:00 Pulse Ox 96 08/17/23 09:00 Oxygen Delivery Method Room Air 08/17/23 09:00 BMI result Body Mass Index 51.0 Const General: no acute distress and alert Nutritional Appearance: not obese Orientation/consciousness: Other orientation findings ( oriented) HEENT Head: Yes atraumatic Eyes General: appearance normal, both eyes and all related structures Sclerae: sclerae normal EOM: EOMs intact bilaterally Neck Neck: Yes supple Lymphatic: no lymphadenopathy noted Resp Effort & Inspection: normal respiratory effort and no use of accessory muscles Auscultation: clear to auscultation bilaterally Cardio Rate: regular rate Rhythm: regular rhythm Heart sounds: no gallops, no murmurs and no rubs Skin General skin exam: other ( warm) Extrem General: No clubbing, No cyanosis and No edema Assessment & Plan Assessment & Plan (1) Emphysema lung: Code(s): J43.9 - Emphysema, unspecified Plan: Results of PFT reviewed, underlying moderate COPD now suboptimally controlled as patient has lost his Anoro. Restart Anoro. (2) Pulmonary nodules: Code(s): R91.8 - Other nonspecific abnormal finding of lung field Plan: Results of CT chest reviewed common worrisome nodules at this time. Continue with yearly screening. Medications: Refilled umeclidinium-vilanterol 62.5-25 mcg/actuation (Anoro Ellipta) 1 inh inhalation DAILY 1 ea 6RF 30 days Coding Level of Care Code Est Pt Level 4 (97680) Diagnoses Emphysema lung J43.9 Pulmonary nodules R91.8
== END 2023-08-17 09:17 | disposition home or self-care (01) ==
PROVIDERS: PCP Emergency Medicine; Visit Provider Internal Medicine Pulmonary Disease
DX: J43.9 Emphysema, unspecified (principal); R91.8 Other nonspecific abnormal finding of lung field
CPT/HCPCS: 94060; 94727; 94729; 99214

== ENCOUNTER 2023-08-17 07:47 | Outpatient (REF) | payer MEDICAID, SELFPAY ==
--- NOTE | 2023-08-17 10:37 | PFT_ITS ---
Forced vital capacity is 87%, FEV1 60%, FEV1/FVC ratio is 55. LHV79-72 is 50% and MVV 58%. Post bronchodilator therapy, there is a significant improvement in flow volumes except for FVC. Lung volumes; total lung capacity 106%, residual volume 168%. Diffusion capacity 43%. CONCLUSION: These findings are suggestive of moderately severe obstructive airway disorder with evidence of air trapping. There is significant response to bronchodilator therapy suggesting the diagnosis of asthma/COPD overlap syndrome. Clinical correlation is recommended. MD EVI Conrad/MODL / [id number]
== END 2023-08-17 07:48 | disposition home or self-care (01) ==
LOC: HO.RESP 07:47
PROVIDERS: PCP Student in an Organized Health Care Education/Training Program; Visit Provider Internal Medicine Pulmonary Disease
DX: J43.9 Emphysema, unspecified (principal); R91.8 Other nonspecific abnormal finding of lung field
CPT/HCPCS: 94010; 94727; 94729; 99212

== ENCOUNTER 2023-11-14 10:40 | Outpatient (REF) | payer MEDICAID, SELFPAY ==
[2023-11-14 11:47] LABS: Hematocrit 44.3 % (42.0-52.0); Hemoglobin 14.3 g/dl (14.0-18.0); Mean Corpuscular HGB Conc 32.3 g/dl (31.0-36.0); Mean Corpuscular Hemoglobin 26.7 pg (27.0-33.0); Mean Corpuscular Volume 82.6 fL (80.0-98.0); Mean Platelet Volume 9.5 fL (9.4-12.4); Platelet Count 234 X10*3/uL (160-400); Red Blood Count 5.36 X10*6/uL (4.60-5.80); Red Cell Distribution Width 14.4 % (11.0-16.0); White Blood Count 9.1 X10*3/uL (4.8-10.8)
[2023-11-14 12:24] LABS: Alanine Aminotransferase 20 U/L (0-40); Albumin Level 4.4 g/dL (3.5-5.0); Alkaline Phosphatase 70 U/L (39-117); Anion Gap 11 (12-20); Aspartate Amino Transferase 19 U/L (5-37); Bilirubin Total 0.4 mg/dL (0.0-1.0); Blood Urea Nitrogen 15 mg/dL (9-16); C Reactive Protein 0.29 mg/dL (< or = 0.50); Calcium 9.6 mg/dL (8.4-10.2); Carbon Dioxide 25 mmol/L (22-29); Chloride 106 mmol/L (96-108); Cholesterol 199 mg/dL (<200); Estimated Glomerular Filt Rate > 60; Glucose Random 99 mg/dL (60-115); HDL Cholesterol 61 mg/dL (>40); LDL Cholesterol Calculated 126 mg/dL (<100); Potassium 4.2 mmol/L (3.3-5.1); Sodium 138 mmol/L (135-145); Total Protein 7.5 g/dL (6.5-8.0); Triglycerides 63 mg/dL (<150)
[2023-11-14 12:25] LABS: Erythrocyte Sedimentation Rate 2 MM/HR (0-15)
[2023-11-14 12:26] LABS: Rheumatoid Factor < 13.0 IU/mL (<15.0)
[2023-11-14 12:37] LABS: TSH reflex Free T4 2.67 uIU/mL (0.32-4.0)
[2023-11-14 12:54] LABS: Vitamin B12 801 pg/mL (200-900)
[2023-11-15 10:49] LABS: Prot Elec - Albumin 4.5 g/dL (3.8-4.8); Prot Elec - Alpha1 0.3 g/dL (0.2-0.3); Prot Elec - Alpha2 0.7 g/dL (0.5-0.9); Prot Elec - Beta 1 0.4 g/dL (0.4-0.6); Prot Elec - Beta 2 0.4 g/dL (0.2-0.5); Prot Elec - Gamma 1.1 g/dL (0.8-1.7); Prot Elec - Total Protein 7.4 g/dL (6.1-8.1)
[2023-11-16 14:48] LABS: IgA 187 mg/dL (47-310); IgG 1257 mg/dL (600-1640); IgM 40 mg/dL (50-300)
== END 2023-11-14 10:41 | disposition home or self-care (01) ==
LOC: HO.HHCL 10:40
PROVIDERS: Visit Provider Student in an Organized Health Care Education/Training Program
DX: E78.5 Hyperlipidemia, unspecified (principal); G62.9 Polyneuropathy, unspecified
CPT/HCPCS: 36415; 80053; 80061; 82607; 82746; 82784; 84165; 84443; 85027; 85652; 86140; 86334; 86431

== ENCOUNTER 2023-11-15 10:03 | Outpatient (REF) | payer MEDICAID, SELFPAY ==
[2023-11-17 21:44] LABS: Cyclic Citrullinated Peptide <16 UNITS
== END 2023-11-15 10:04 | disposition home or self-care (01) ==
LOC: HO.LAB 10:03
PROVIDERS: PCP Student in an Organized Health Care Education/Training Program; Visit Provider Student in an Organized Health Care Education/Training Program
DX: G62.9 Polyneuropathy, unspecified (principal)
CPT/HCPCS: 36415; 86200

== ENCOUNTER 2023-12-08 12:42 | Outpatient (REF) | payer MEDICAID, SELFPAY ==
--- NOTE | ~2023-12-08 | XR_ITS ---
EXAMINATION: XR PRE-MRI SCREENING ORBITS, FOREARM AND PELVIS CLINICAL INFORMATION: Orbits, forearm and pelvis, pre-MRI check for metal. COMPARISON: Lumbar spine of 07/10/2023, CT chest 06/09/2023. CT abdomen and pelvis 05/31/2023. X-ray right humerus 06/01/2022. Right shoulder 06/01/2022. TECHNIQUE: Lateral and 2 [place] views looking down of the orbits. AP and lateral views of the right forearm. 2 AP views of the pelvis. FINDINGS: ORBITS: There are 2 metallic plates with threaded screws along the lateral and inferior aspects of the right orbit. No gross air-fluid levels are appreciated in the maxillary sinuses. RIGHT FOREARM: No radiopaque foreign body is identified in the region of the orbits. Punctate density distal to the ulna of indeterminate age and etiology. Alignment of radius and ulna preserved. PELVIS: No radiopaque foreign body identified in the pelvis. Mild degenerative changes redemonstrated in the imaged lower lumbar spine. Redemonstration of rim densities in the left lower quadrant, possibly related to residual contrast within diverticula versus calcifications. Redemonstration mild asymmetric sclerosis of the left sacroiliac joint. XR/XR pre mri screening IMPRESSION: 1. Metallic plates with threaded screws along the lateral and inferior aspects of the right orbit. 2. Punctate density distal to the ulna of indeterminate age and etiology. 3. No radiopaque foreign body identified in the pelvis.
== END 2023-12-08 12:43 | disposition home or self-care (01) ==
LOC: HO.XRAY 12:42
PROVIDERS: PCP Student in an Organized Health Care Education/Training Program; Visit Provider Internal Medicine
DX: Z13.89 Encounter for screening for other disorder (principal)

== ENCOUNTER 2023-12-13 19:39 | Outpatient (REF) | payer MEDICAID, SELFPAY ==
--- NOTE | ~2023-12-13 | MR_ITS ---
EXAMINATION: MR CERVICAL SPINE WITHOUT CONTRAST CLINICAL INFORMATION: Ongoing neck pain and numbness in both arms. COMPARISON: There are no prior studies available for comparison. TECHNIQUE: MRI of the cervical spine was obtained using routine sequences without contrast. FINDINGS: VERTEBRAL BODIES AND PARASPINAL SOFT TISSUES: There is anatomic alignment of the vertebral bodies. There is narrowing of intervertebral disc height at C5-C6 and C6-C7. There are degenerative endplate contour changes at C6-C7 with moderate edematous endplate signal. Mild endplate signal is seen at C5-C6. Vertebral body heights are maintained and no fractures are demonstrated. Overall, marrow signal is homogenous. The regional soft tissues are unremarkable. CERVICOMEDULLARY JUNCTION AND VISUALIZED POSTERIOR FOSSA: The craniocervical and posterior fossa structures are normal. Accounting for artifact, spinal cord signal appears normal. SPINAL LEVELS: C2-C3: There is mild bilateral facet arthropathy. There is a small soft disc protrusion posteriorly with minimal mass effect on the thecal sac. There is no central stenosis or cord compression, and the neural foramina are patent bilaterally. C3-C4: The facet joints appear normal bilaterally. There is a shallow posterior soft disc protrusion which mildly distorts the ventral thecal sac but there is no cord compression or central stenosis. The neural foramina are patent bilaterally. C4-C5: The facet joints appear normal bilaterally. There is a soft posterior disc protrusion with mild distortion of the ventral thecal sac with no cord compression or central stenosis. There are uncovertebral osteophytes and there is mild to moderate bilateral foraminal narrowing. C5-C6: The facet joints appear normal bilaterally. There is a broad-based posterior disc protrusion which mildly flattens the ventral thecal sac but there is no cord compression. There is mild central stenosis. There are uncovertebral osteophytes and there is moderate bilateral foraminal narrowing. C6-C7: The facet joints appear normal bilaterally. There is a broad-based posterior disc osteophyte complex which flattens the ventral thecal sac but there is no cord compression. There is mild central stenosis. There is moderate bilateral foraminal narrowing. C7-T1: The facet joints appear normal bilaterally. Posterior disc contour is normal. There is no spinal cord compression or central stenosis. The neural foramina are patent bilaterally. MR/MR cervical spine wo con IMPRESSION: 1. At C5-C6 there is a broad-based posterior disc protrusion with mild central stenosis. There is moderate bilateral foraminal narrowing. 2. At C6-C7 there is a broad-based posterior disc osteophyte complex with mild central stenosis. There is moderate bilateral foraminal narrowing. 3. At C4-C5 there is a soft posterior disc protrusion without cord compression or central stenosis. There is mild to moderate bilateral foraminal narrowing.
== END 2023-12-13 19:40 | disposition home or self-care (01) ==
LOC: HO.MRI 19:39
PROVIDERS: PCP Student in an Organized Health Care Education/Training Program; Visit Provider Student in an Organized Health Care Education/Training Program
DX: G62.9 Polyneuropathy, unspecified (principal)
CPT/HCPCS: 72141

== ENCOUNTER 2023-12-14 08:32 | Outpatient (REF) | payer MEDICAID, SELFPAY ==
--- NOTE | 2023-12-14 08:35 | EMG_ITS ---
Bilateral median and ulnar motor and sensory studies were performed. Bilateral radial sensory studies were performed and paraspinal muscles were tested with a needle. 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 MD HANNAH Aparicio/BHAVESH / [id number]
== END 2023-12-14 08:33 | disposition home or self-care (01) ==
LOC: HO.NEURO 08:32
PROVIDERS: PCP Student in an Organized Health Care Education/Training Program; Visit Provider Student in an Organized Health Care Education/Training Program
DX: G62.9 Polyneuropathy, unspecified (principal)
CPT/HCPCS: 95886; 95911

== ENCOUNTER 2023-12-26 16:46 | Outpatient (REF) | payer MEDICAID, SELFPAY ==
[2023-12-26 18:04] LABS: Total Protein Urine Random 17 mg/dL (<12)
[2023-12-29 09:33] LABS: PEU-Protein Creat Ratio Rand 0.102 (0.025-0.148); PEU-Rand. Prot/Creat Ratio 102 mg/g creat (25-148); PEU-Random Ur. Gamma Globulin 0 %; PEU-Random Urine A1 Globulin 0 %; PEU-Random Urine A2 Globulin 0 %; PEU-Random Urine Albumin 100 %; PEU-Random Urine Beta Globulin 0 %; PEU-Random Urine Creatinine 215 mg/dL (20-320); PEU-Random Urine Protein 22 mg/dL (5-25)
== END 2023-12-26 16:47 | disposition home or self-care (01) ==
LOC: HO.HHCLNP 16:46
PROVIDERS: Visit Provider Student in an Organized Health Care Education/Training Program
DX: G62.9 Polyneuropathy, unspecified (principal)
CPT/HCPCS: 82570; 84156; 84166

== ENCOUNTER → 2024-03-01 08:57 | Outpatient (BNVA) | payer MEDICAID, SELFPAY | PROVIDERS: PCP Student in an Organized Health Care Education/Training Program; Visit Provider Internal Medicine Pulmonary Disease | DX: J43.9 Emphysema, unspecified (principal); R91.8 Other nonspecific abnormal finding of lung field; M54.14 Radiculopathy, thoracic region; G47.8 Other sleep disorders; R06.83 Snoring; R40.0 Somnolence; Z79.899 Other long term (current) drug therapy | CPT/HCPCS: 99212 ==

== ENCOUNTER 2024-03-01 14:22 | Outpatient (AMB) | payer MEDICAID, SELFPAY ==
[2024-03-01 14:39] VITALS: BP 119/67; PULSE 87; O2SAT 99; BMI 23.3
--- NOTE | 2024-03-01 14:39 | A.OFFVIS_ITS ---
Vital Signs 03/01/24 14:39 Height 5 ft 5 in Weight 140 lb BMI 23.3 BP 119/67 Blood Pressure Location Lt brachial Position Sitting Pulse 87 Pulse Source Doppler Pulse Oximetry (%) 99 Oxygen Delivery Method Room Air Intake Visit Reasons: asthma Allergies No Known Allergies Allergy (Verified 03/01/24 14:46) HPI HPI asthma: Details: 58-year-old gentleman active 30+ pack-year smoker followed for underlying moderate COPD and pulmonary nodules. Patient has been using Anoro intermittently with suboptimal control of his symptoms. He also does complain of significant thoracic radicular pain component. He denies an acute exacerbation. [facility] Medical History (Updated 03/01/24 @ 15:02 by Maciej Wick MD) No known health problems Surgical History (Updated 05/02/22 @ 06:50 by Dasha Diaz MD) No pertinent past surgical history Family History (Updated 05/02/22 @ 06:50 by Dasha Diaz MD) Other No family history of coronary artery disease Social History (Updated 03/01/24 @ 14:47 by Yoselin Amaro [facility]) Patient Tobacco Use Status: Current someday Tobacco user Tobacco use type: Cigarette Cigarettes Per Day: 5 Substance Use Type: Marijuana service: No Current occupational status: employed Review of Systems Const Denies daytime sleepiness, Denies excessive sweating, Denies fatigue, Denies fever(s), Denies lethargy, Denies malaise, Denies night sweats, Denies snoring and Denies weight loss Eyes Denies blurry vision and Denies itchy eyes ENT Denies nasal congestion, Denies post nasal drip, Denies sinus pain, Denies sinus pressure and Denies other ( Thrush) Card Denies chest pain, Denies pedal edema, Denies dyspnea, Denies orthopnea and Denies paroxysmal nocturnal dyspnea Resp Denies cough, Denies hemoptysis, Denies excessive phlegm production, Denies dyspnea, Denies snoring and Denies wheezing GI Denies abdominal pain and Denies heartburn Musc Reports back pain, Denies myalgias, Denies arthralgias and Denies joint swelling Skin/Breast Denies rash Neuro Denies memory loss and Denies seizure-like activity Psych Denies abnormal sleep pattern, Denies anxiety and Denies memory loss Endo Denies excessive sweating, Denies fatigue and Denies heat intolerance Tang/Lymph Denies easy bruising Aller/Immun Denies itchy eyes, Denies seasonal rhinorrhea and Denies wheezing Physical Exam Vital Signs: Last Vital Signs Pulse 87 03/01/24 14:39 BP 119/67 03/01/24 14:39 Pulse Ox 99 03/01/24 14:39 Oxygen Delivery Method Room Air 03/01/24 14:39 BMI result Body Mass Index 23.3 Const General: no acute distress and alert Nutritional Appearance: not obese Orientation/consciousness: Other orientation findings ( oriented) HEENT Head: Yes atraumatic Eyes General: appearance normal, both eyes and all related structures Sclerae: sclerae normal EOM: EOMs intact bilaterally Neck Neck: Yes supple Lymphatic: no lymphadenopathy noted Resp Effort & Inspection: normal respiratory effort and no use of accessory muscles Auscultation: clear to auscultation bilaterally Cardio Rate: regular rate Rhythm: regular rhythm Heart sounds: no gallops, no murmurs and no rubs Skin General skin exam: other ( warm) Extrem General: No clubbing, No cyanosis and No edema Assessment & Plan Assessment & Plan (1) Emphysema lung: Code(s): J43.9 - Emphysema, unspecified Category: Medical Plan: Suboptimal control as patient has not been using his Anoro regularly. Patient has been encouraged to use his Anoro more consistently. Continue albuterol MDI. (2) Pulmonary nodules: Code(s): R91.8 - Other nonspecific abnormal finding of lung field Category: Medical Plan: Results of prior CT chest reviewed with no worrisome nodules noted at this time. Continue with yearly screening, next in May of 2024. (3) Thoracic radiculopathy: Code(s): M54.14 - Radiculopathy, thoracic region Category: Medical Plan: Will refer to pain management for further evaluation. Orders: Orders CT lung screening Today Z87.891 - Personal history of nicotine dependence Referrals Pain Management Referral M54.14 - Radiculopathy, thoracic region Coding Level of Care Code Est Pt Level 4 (43978) Diagnoses Emphysema lung J43.9 Pulmonary nodules R91.8 Thoracic radiculopathy M54.14
== END 2024-03-01 15:01 | disposition home or self-care (01) ==
PROVIDERS: PCP Student in an Organized Health Care Education/Training Program; Referring Provider Student in an Organized Health Care Education/Training Program; Visit Provider Internal Medicine Pulmonary Disease
DX: J43.9 Emphysema, unspecified (principal); R91.8 Other nonspecific abnormal finding of lung field; M54.14 Radiculopathy, thoracic region
CPT/HCPCS: 99214

== ENCOUNTER 2024-03-13 14:07 | Outpatient (AMB) | payer MEDICAID, SELFPAY ==
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
[2024-03-13 14:49] VITALS: BP 120/64; PULSE 88; RESP 16; O2SAT 100; BMI 23.5
== END 2024-03-13 15:06 | disposition home or self-care (01) ==
PROVIDERS: PCP Student in an Organized Health Care Education/Training Program; Referring Provider Internal Medicine Pulmonary Disease; Visit Provider Anesthesiology
DX: M54.2 Cervicalgia (principal); G89.4 Chronic pain syndrome
CPT/HCPCS: 99214

== ENCOUNTER → 2024-03-13 14:07 | Outpatient (BNVA) | payer MEDICAID, SELFPAY | PROVIDERS: PCP Student in an Organized Health Care Education/Training Program; Referring Provider Internal Medicine Pulmonary Disease; Visit Provider Anesthesiology | DX: M54.14 Radiculopathy, thoracic region (principal); M54.2 Cervicalgia; G89.4 Chronic pain syndrome | CPT/HCPCS: 99212 ==

== ENCOUNTER 2024-03-18 15:27 | Outpatient (AMB) | payer MEDICAID, SELFPAY ==
--- NOTE | 2024-03-18 15:31 | MHC.OFFVIS ---
Vital Signs 03/18/24 15:36 Height 5 ft 4.5 in Weight 136 lb 10.986 oz BMI 23.1 BP 118/72 Blood Pressure Location Lt brachial Position Sitting Pulse 92 Intake Visit Reasons: Abdominal pain Intake Note: Dilan presents in the office as a new patient for abdominal pains. CC: Stomach pains come and go, blood in the stool, constant urge to have a BM but is unable to have a bowel movement - he states he passes fatemeh. Allergies No Known Allergies Allergy (Verified 03/18/24 15:37) HPI Comments Details: 59 y.o M who is here for changes in bowel habits. Pt reports having urge to defecate but has difficulty evacuation. Only able to pass small fatemeh. Also sees blood on wiping. Started noticing it almost a year ago. Was told was likely due to internal hemorrhoids. Last colo was almost 10 years ago. Used to lift heavy weights. PFSH Medical History No known health problems Surgical History No pertinent past surgical history Family History Other No family history of coronary artery disease Social History Patient Tobacco Use Status: Current someday Tobacco user Tobacco use type: Cigarette Cigarettes Per Day: 5 Substance Use Type: Marijuana service: No Current occupational status: employed Review of Systems Const All systems reviewed & are unremarkable except as noted in HPI and below Physical Exam Vital Signs: Last Vital Signs Pulse 92 03/18/24 15:36 BP 118/72 03/18/24 15:36 BMI result Body Mass Index 23.1 Results Reviewed Results Reviewed: Laboratory Tests 06/05/23 11/14/23 07:45 10:51 Hgb 14.3 Hct 44.3 Plt Count 234 Stool Occult Blood NEGATIVE Assessment & Plan Assessment & Plan (1) Encounter for diagnostic colonoscopy due to change in bowel habits: Code(s): R19.4 - Change in bowel habit Category: Medical (2) JIMENA (obstructive sleep apnea): Code(s): G47.33 - Obstructive sleep apnea (adult) (pediatric) Category: Medical (3) Emphysema lung: Code(s): J43.9 - Emphysema, unspecified Category: Medical Plan Ddx include CIC, stricture, diverticular disease, IBS. Colitis less likely as typically assoc with diarrhea. Will set up diagnostic colo. PEG prep instructions reviewed. Pt requests handout to be MAILED to him close to the colo date. We did review anesth risks given underlying COPD and JIMENA. He was also advised to avoid smoking for at least a week before procedure. Follow up after colo. Medications: New peg 3350-electrolytes 236-22.74-6.74 -5.86 gram (Golytely) as per split prep instructions, until fecal effluent is clear 240 mL PO Q10M 4,000 mL 0RF colonoscopy Coding Level of Care Code New Pt Level 4 (30535) Diagnoses Encounter for diagnostic colonoscopy due to change in bowel habits R19.4 JIMENA (obstructive sleep apnea) G47.33 Emphysema lung J43.9
[2024-03-18 15:36] VITALS: BP 118/72; PULSE 92; BMI 23.1
== END 2024-03-18 16:49 | disposition home or self-care (01) ==
PROVIDERS: PCP Student in an Organized Health Care Education/Training Program; Referring Provider Student in an Organized Health Care Education/Training Program; Visit Provider Internal Medicine
DX: R19.4 Change in bowel habit (principal); G47.33 Obstructive sleep apnea (adult) (pediatric); J43.9 Emphysema, unspecified
CPT/HCPCS: 99204

== ENCOUNTER → 2024-03-18 15:27 | Outpatient (BNVA) | payer MEDICAID, SELFPAY | PROVIDERS: PCP Student in an Organized Health Care Education/Training Program; Visit Provider Internal Medicine | DX: R19.4 Change in bowel habit (principal); J43.9 Emphysema, unspecified; G47.33 Obstructive sleep apnea (adult) (pediatric) | CPT/HCPCS: 99202 ==

== ENCOUNTER → 2024-04-09 16:00 | Outpatient (BNV) | payer MEDICAID, SELFPAY | PROVIDERS: Visit Provider Internal Medicine | DX: R06.83 Snoring (principal) | CPT/HCPCS: 95806 ==

== ENCOUNTER → 2024-04-09 16:15 | Outpatient (REF) | payer MEDICAID, SELFPAY | LOC: HO.SL 16:15 | PROVIDERS: Visit Provider Internal Medicine Pulmonary Disease | DX: G47.33 Obstructive sleep apnea (adult) (pediatric) (principal) | CPT/HCPCS: 95806 ==

== ENCOUNTER 2024-05-30 08:36 | Outpatient (REF) | payer MEDICAID, SELFPAY ==
--- NOTE | ~2024-05-30 | CT_ITS ---
EXAMINATION: CT LOW-DOSE SCREENING CHEST WITHOUT CONTRAST CLINICAL INFORMATION: Personal history of nicotine dependence. The patient is a current smoker with a 30 pack-year history of smoking. COMPARISON: CT chest June 09, 2023 and x-ray of the chest May 10, 2023. TECHNIQUE: Multidetector volumetric CT imaging of the chest is performed on a Siemens SOMATOM Definition scanner without contrast using low dose technique. Additional 2D coronal and sagittal reformatted images and axial 3D maximum intensity projection (MIP) images are generated on the CT workstation. This CT examination was performed using dose optimization techniques as appropriate, variously including the following: *Automated exposure control *Adjustment of mA and/or kV according to patient size (this includes techniques or standardized protocols for targeted exams where dose is matched to indication/reason for exam; i.e. extremities or head) *Use of iterative reconstruction technique TOTAL EXAM DLP: 46 mGy-cm. CTDIvol: 1.31 mGy. FINDINGS: PULMONARY NODULES: No suspicious pulmonary nodules. LUNGS: Lungs bilaterally symmetrically expanded. Moderate emphysematous changes are present with a mild saber-sheath trachea. Mild bronchial thickening is present without bronchiectasis. No effusion or pneumothorax. Central airways patent. MEDIASTINUM: No mediastinal, hilar or axillary adenopathy or free fluid collection. CORONARY ARTERY CALCIFICATION: None visualized on this study. THYROID GLAND: Unremarkable to the extent seen. CARDIOVASCULAR STRUCTURES: Aortic and heart size normal. No pericardial effusion. CHEST WALL/AXILLA: Unremarkable. UPPER ABDOMEN: Included portions of the solid organs in the upper abdomen unremarkable on noncontrast imaging. OSSEOUS STRUCTURES: No suspicious focal findings. CT/CT lung screening IMPRESSION: No suspicious lung nodules are seen. ASSESSMENT: 1. Lung-RADS Category 1: Negative. There are no nodules or there are definitely benign nodules. Obscured by acute abnormality. 2. Lung-RADS Category S: Negative. There are no clinically significant or potentially clinically significant findings not related to the lungs requiring urgent additional evaluation. RECOMMENDATION: Continued routine annual low-dose CT lung screening in 1 year is recommended. An order for CT CHEST LOW DOSE CANCER SCREENING ([id number]) can be placed. Electronically signed by: Jose Looney MD 07/12/2024 12:05 AM EDT
== END 2024-05-30 08:37 | disposition home or self-care (01) ==
LOC: HO.CT 08:36
PROVIDERS: PCP Student in an Organized Health Care Education/Training Program; Visit Provider Internal Medicine Pulmonary Disease
DX: Z12.2 Encounter for screening for malignant neoplasm of respiratory organs (principal); Z87.891 Personal history of nicotine dependence
CPT/HCPCS: 71271

== ENCOUNTER 2024-08-06 07:46 | Day surgery (SDC) | payer MEDICAID, SELFPAY ==
--- NOTE | 2024-08-02 13:28 | HO.ANESPROP2 ---
Documented by User: Lay Esquivel NP 08/02/24 13:28 HPI - Anesthesia Eval Consult details Narrative: 59yo M for Colonoscopy PMFSH Active Problems Active Problems: All Active Problems Encounter for diagnostic colonoscopy due to change in bowel habits (Acute) Chronic pain syndrome (Acute) Cervicalgia (Acute) JIMENA (obstructive sleep apnea) (Acute) Personal history of nicotine dependence (Acute) Thoracic radiculopathy (Acute) Pulmonary nodules (Acute) Emphysema lung (Acute) Cervical radiculopathy (Acute) Rupture of proximal biceps tendon (Acute) Diverticulitis (Acute) Past Medical History Medical History No known health problems Family History Family History Other No family history of coronary artery disease Surgical History Surgical History No pertinent past surgical history Social History Social History Are you a primary career and guidance counselor to a significant other at home: No Do you presently have visiting nurse or other home services: No Patient Tobacco Use Status: Current everyday Tobacco user Tobacco use type: Cigarette Cigarettes Per Day: 5 Patient Interested in Nicotine Replacement: No Use of substances other than those prescribed or required for medical reasons: Yes Substance Use Type: Marijuana Substance Use Frequency: Chronic Longstanding Have you been hit, kicked, punched, or otherwise hurt by someone within the past year? If so, by whom?: No Are you DNR?: No Advance Directives: No Advance Directives Information Provided: Yes Recently lost weight without trying: No Nutrition Risks: No Nutritional Risk Poor oral hygiene: No service: No Current occupational status: employed Meds Allergies Allergy/AdvReac Type Severity Reaction Status Date / Time No Known Allergies Allergy Verified 08/06/24 09:56 Home Medications ?Medication ?Instructions ?Recorded ?Confirmed ?Last Taken ?Type atorvastatin 10 mg tablet 10 mg PO DAILY 03/13/24 08/06/24 Unknown History lidocaine 5 % topical patch 3 patch topical DAILY 03/13/24 08/06/24 Unknown History Assessment and Plan Assessment Anesthesia Assessment: Chart Reviewed Documented by User: Slade Kern MD 08/06/24 11:09 PMFSH Past Medical History Medical History No known health problems Family History Family History Other No family history of coronary artery disease Family history of problems with anesthesia: No Surgical History Surgical History No pertinent past surgical history History of Problems with Anesthesia: No Social History Social History Are you a primary career and guidance counselor to a significant other at home: No Do you presently have visiting nurse or other home services: No Patient Tobacco Use Status: Current everyday Tobacco user Tobacco use type: Cigarette Cigarettes Per Day: 5 Patient Interested in Nicotine Replacement: No Use of substances other than those prescribed or required for medical reasons: Yes Substance Use Type: Marijuana Substance Use Frequency: Chronic Longstanding Have you been hit, kicked, punched, or otherwise hurt by someone within the past year? If so, by whom?: No Are you DNR?: No Advance Directives: No Advance Directives Information Provided: Yes Recently lost weight without trying: No Nutrition Risks: No Nutritional Risk Poor oral hygiene: No service: No Current occupational status: employed Meds Allergies Allergy/AdvReac Type Severity Reaction Status Date / Time No Known Allergies Allergy Verified 08/06/24 09:56 Home Medications ?Medication ?Instructions ?Recorded ?Confirmed ?Last Taken ?Type atorvastatin 10 mg tablet 10 mg PO DAILY 03/13/24 08/06/24 Unknown History lidocaine 5 % topical patch 3 patch topical DAILY 03/13/24 08/06/24 Unknown History Exam Airway Mallampati Class: II TM Dist: >3cm Neck ROM: Full Denture: Upper Loose/Missing/Broken Teeth: Yes Assessment and Plan Assessment Anesthesia Assessment: Anesthesia Plan Discussed Final Anesthetic Review Family History of Problems with Anesthesia: No History of Problems with Anesthesia: No NPO: Yes ASA Class: III Final Preanesthetic Review: No Changes in Pt Med Stat, Meds/Allgs Chart Reviewed, Consent Obtained/Reviewed and Anes Risks/Benef Reviewed Patient Risk: Intermediate Procedure Risk: Low Anesthetic Plan Anesthetic Plan: MAC: Disposition: Standard PACU
--- NOTE | 2024-08-06 08:54 | MHC.SHP ---
Pre-Procedural Eval Section A - 24 Hr Update-Section A only Date of Service: 08/06/24 Section B - Complete if H&P > 30 days Chief Complaint: Unspecified abdominal pain, rectal bleeding Details of Present Illness: COPD JIMENA Present Medications: see Short Stay Collaborative assessment Allergies: Allergies Allergy/AdvReac Type Severity Reaction Status Date / Time No Known Allergies Allergy Verified 03/18/24 15:37 Review of Systems Review of Systems Comment: Ten point ROS negative Exam Exam Comment: Gen appear: No acute distress HEENT: no icterus Chest: No overt resp distress Abd: soft, nontender, nondistended Psych: Stable affect, answering questions appropriately Neuro: A/Ox3 noted to move all extremities spontaneously Ext: no peripheral edema Plan Diagnosis/Plan: Unchanged I have reviewed the history and physical and performed a pertinent physical examination on my patient. No changes have occurred unless specified. Time Spent With Patient Time: Total time managing care of this patient today ____ minutes.
[2024-08-06 09:48] VITALS: BMI 23.3
[2024-08-06 10:17] VITALS: BP 109/68; PULSE 61; RESP 12; TEMP 36.3; O2SAT 99
[2024-08-06] MEDS: Lactated Ringers 1,000 ML 100 ML IVCONT (10:18)
[2024-08-06 11:40] VITALS: BP 94/67; PULSE 72; RESP 16; TEMP 36.4; O2SAT 98
[2024-08-06 11:55] VITALS: BP 116/89; PULSE 88; RESP 18; TEMP 36.6; O2SAT 99
--- NOTE | 2024-08-06 12:42 | P.OPN-COLO_ITS ---
Colonoscopy Operative Note Operative Note Date of Service: 08/06/24 Narrative: Procedure: Colonoscopy Indication: Lower GI bleeding Endoscopist: Sugey Leigh MD Anesthesia Provider: Dr Slade Kern Anesthesia type: MAC Instrument: Olympus [id number]-[id number] Consent: Indication, risks vs benefits, and alternatives were discussed with the patient who gave written informed consent to proceed. EKG, pulse, pulse oximetry and blood pressure were monitored throughout the procedure. Please see anesthesia flowsheet. Procedure: The patient was brought to the procedure room and placed in the left lateral decubitus position. IV medications were administered by the anesthesia provider in attendance. A digital rectal exam was performed which was normal. A distal attachment cap was affixed to the tip of the colonoscope which was then inserted through the anus and advanced through the colon to the cecum at 75 cm,and terminal ileum. Appendiceal orifice and ileocecal valve were identified. Mucosa was carefully examined under high definition white light as the instrument was slowly withdrawn in a retrograde panoramic fashion. Retroflexion was performed in rectum. The procedure was not difficult. There were no immediate obvious complications. The quality of the prep was BBPS: 2+3+2 = adequate Withdrawal time 12 minutes. Limitations: No limitations. Findings: Mucosa: Normal to cecum and terminal ileum. Protruding lesions: * 2 sessile polyps of size 4-6 mm in sigmoid colon. Cold snare polypectomy was performed. The polyp was completely removed and retrieved. * 1 semi-pedunculated polyp of size 13 mm in sigmoid colon. Hot snare polypectomy was performed. The polyp was completely removed and retrieved. * Medium internal hemorrhoids without stigmata of recent bleeding. Excavated lesions: * Moderate diverticulosis of sigmoid colon. Impression: 1. Normal colon mucosa 2. Total of 3 polyps removed from 3. Internal hemorrhoids 4. Diverticulosis Recommendations: - Follow path results. - Repeat colonoscopy in 3 years if the largest polyp is an adenoma.
== END 2024-08-06 12:24 | disposition home or self-care (01) ==
PROVIDERS: PCP Student in an Organized Health Care Education/Training Program; Visit Provider Internal Medicine
PROC: 0DJD8ZZ Inspection of Lower Intestinal Tract, Via Natural or Artificial Opening Endoscopic (ICD-10-PCS; CPT 45378; principal; 2024-08-06 09:30)
DX: R19.4 Change in bowel habit (principal); K62.5 Hemorrhage of anus and rectum; D12.5 Benign neoplasm of sigmoid colon; K57.30 Diverticulosis of large intestine without perforation or abscess without bleeding; K64.8 Other hemorrhoids; J43.9 Emphysema, unspecified; G47.33 Obstructive sleep apnea (adult) (pediatric); Z79.899 Other long term (current) drug therapy; F17.210 Nicotine dependence, cigarettes, uncomplicated
CPT/HCPCS: 45385; 88305; J2003; J2704

== ENCOUNTER → 2024-08-06 07:46 | Outpatient (BNV) | payer MEDICAID, SELFPAY | PROVIDERS: PCP Student in an Organized Health Care Education/Training Program; Visit Provider Internal Medicine | DX: K92.2 Gastrointestinal hemorrhage, unspecified (principal); D12.5 Benign neoplasm of sigmoid colon; K57.30 Diverticulosis of large intestine without perforation or abscess without bleeding; K64.8 Other hemorrhoids | CPT/HCPCS: 45385 ==

== ENCOUNTER → 2024-08-21 11:21 | Outpatient (AMB) | payer MEDICAID, SELFPAY ==
--- NOTE | 2024-08-21 11:21 | MHC.OFFVIS ---
Intake Visit Reasons: s/p colon Intake Note: Dilan presents as a follow up colonoscopy. CC: He states that he had two times where there was blood and he states he thinks it may be hemorrhoids. He states that he has normal stools sometimes loose. Natural Resource Economist Required: No Allergies No Known Allergies Allergy (Verified 08/06/24 09:56) HPI Comments Details: 59 y.o M who is here for changes in bowel habits. Pt reports having urge to defecate but has difficulty evacuation. Only able to pass small fatemeh. Also sees blood on wiping. Started noticing it almost a year ago. Was told was likely due to internal hemorrhoids. Last colo was almost 10 years ago. Used to lift heavy weights. 08/06/24: [place]: 1. Normal colon mucosa 2. Total of 3 polyps removed from 3. Internal hemorrhoids 4. Diverticulosis Recommendations: - Follow path results. - Repeat colonoscopy in 3 years if the largest polyp is an adenoma. Path: Colon, sigmoid, polypectomy x3: Tubular adenoma (1); hyperplastic polyp (2); negative for high-grade dysplasia. 08/21/24: televisit. No acute issues. Results of hte colo reviewed. He is happy to hear no sinister cause of rectal bleeding. [facility] Medical History No known health problems Surgical History No pertinent past surgical history Family History Other No family history of coronary artery disease Social History Are you a primary care director to a significant other at home: No Do you presently have visiting nurse or other home services: No Patient Tobacco Use Status: Current everyday Tobacco user Tobacco use type: Cigarette Cigarettes Per Day: 5 Substance Use Type: Marijuana service: No Current occupational status: employed Review of Systems Const All systems reviewed & are unremarkable except as noted in HPI and below Physical Exam Vital Signs: televisit Telehealth Telehealth Telehealth Platform: Telephone Location of provider rendering services: practice address Location of patient: address on file Patient Identification confirmed using: Name, : Yes Telehealth method: voice only Patient verbally consented to treatment: Yes Patient verbally consented to billing insurance company: Yes Patient informed of any privacy concerns related to visit: Yes Minutes spent on Phone/Video with Pt.: 8 Assessment & Plan Assessment & Plan (1) Personal history of colonic polyps: Code(s): Z86.0100 - Personal history of colon polyps, unspecified Category: Medical (2) Hemorrhoids: Code(s): K64.9 - Unspecified hemorrhoids Category: Medical Plan Rectal bleeding likely 2/2 hemorrhoids. Currently well controlled and does not feel he needs any topical tx at present. In terms of polyps, he is aware re repeat colo in 3 years. Reminder set. Follow up PRN Coding Level of Care Code Tele Est Pt Level 3 (07219) Diagnoses Personal history of colonic polyps Z86.0100 Hemorrhoids K64.9
== END ==
LOC: HO.HGI 11:21
PROVIDERS: PCP Student in an Organized Health Care Education/Training Program; Visit Provider Internal Medicine
DX: K64.9 Unspecified hemorrhoids (principal); D12.5 Benign neoplasm of sigmoid colon
CPT/HCPCS: 99213

== ENCOUNTER → 2024-08-21 11:21 | Outpatient (BNVA) | payer MEDICAID, SELFPAY | PROVIDERS: PCP Student in an Organized Health Care Education/Training Program; Visit Provider Internal Medicine ==

== ENCOUNTER 2024-09-05 09:05 | Outpatient (AMB) | payer MEDICAID, SELFPAY ==
[2024-09-05 09:14] VITALS: BP 110/62; PULSE 93; O2SAT 98; BMI 23.7
--- NOTE | 2024-09-05 09:14 | MHC.OFFVIS ---
Vital Signs 09/05/24 09:14 Height 5 ft 4.5 in Weight 140 lb BMI 23.7 BP 110/62 Blood Pressure Location Rt brachial Position Sitting Pulse 93 Pulse Source Doppler Pulse Oximetry (%) 98 Oxygen Delivery Method Room Air Intake Visit Reasons: Asthma Allergies No Known Allergies Allergy (Verified 09/05/24 09:20) HPI HPI Asthma: Details: 58-year-old gentleman active 30+ pack-year smoker followed for underlying moderate COPD and pulmonary nodules. Patient has been using Anoro intermittently with suboptimal control of his symptoms. He denies recent exacerbations. Patient did have sleep study that did not demonstrate JIMENA. [facility] Medical History No known health problems Surgical History No pertinent past surgical history Family History Other No family history of coronary artery disease Social History Are you a primary residential care facility manager to a significant other at home: No Do you presently have visiting nurse or other home services: No Patient Tobacco Use Status: Current everyday Tobacco user Tobacco use type: Cigarette Cigarettes Per Day: 5 Substance Use Type: Marijuana service: No Current occupational status: employed Review of Systems Const Denies daytime sleepiness, Denies excessive sweating, Denies fatigue, Denies fever(s), Denies lethargy, Denies malaise, Denies night sweats, Denies snoring and Denies weight loss Eyes Denies blurry vision and Denies itchy eyes ENT Denies nasal congestion, Denies post nasal drip, Denies sinus pain, Denies sinus pressure and Denies other ( Thrush) Card Denies chest pain, Denies pedal edema, Denies dyspnea, Denies orthopnea and Denies paroxysmal nocturnal dyspnea Resp Denies cough, Denies hemoptysis, Denies excessive phlegm production, Denies dyspnea, Denies snoring and Denies wheezing GI Denies abdominal pain and Denies heartburn Musc Denies myalgias, Denies arthralgias and Denies joint swelling Skin/Breast Denies rash Neuro Denies memory loss and Denies seizure-like activity Psych Denies abnormal sleep pattern, Denies anxiety and Denies memory loss Endo Denies excessive sweating, Denies fatigue and Denies heat intolerance Tang/Lymph Denies easy bruising Aller/Immun Denies itchy eyes, Denies seasonal rhinorrhea and Denies wheezing Physical Exam Vital Signs: Last Vital Signs Pulse 93 09/05/24 09:14 BP 110/62 09/05/24 09:14 Pulse Ox 98 09/05/24 09:14 Oxygen Delivery Method Room Air 09/05/24 09:14 BMI result Body Mass Index 23.7 Const General: no acute distress and alert Nutritional Appearance: not obese Orientation/consciousness: Other orientation findings ( oriented) HEENT Head: Yes atraumatic Eyes General: appearance normal, both eyes and all related structures Sclerae: sclerae normal EOM: EOMs intact bilaterally Neck Neck: Yes supple Lymphatic: no lymphadenopathy noted Resp Effort & Inspection: normal respiratory effort and no use of accessory muscles Auscultation: clear to auscultation bilaterally Cardio Rate: regular rate Rhythm: regular rhythm Heart sounds: no gallops, no murmurs and no rubs Skin General skin exam: other ( warm) Extrem General: No clubbing, No cyanosis and No edema Assessment & Plan Assessment & Plan (1) Emphysema lung: Code(s): J43.9 - Emphysema, unspecified Category: Medical Plan: Suboptimal control as patient intermittently uses his Anoro. Patient has been encouraged to use his Anoro consistently. Continue current regimen. (2) JIMENA (obstructive sleep apnea): Code(s): G47.33 - Obstructive sleep apnea (adult) (pediatric) Category: Medical Plan: Results of sleep study reviewed, no evidence of underlying obstructive sleep apnea. (3) Personal history of nicotine dependence: Code(s): Z87.891 - Personal history of nicotine dependence Category: Medical Plan: Results of lung cancer screening CT chest from May of 2024 reviewed, no worrisome nodules noted. Continue with yearly screening, ordered. Orders: Orders CT lung screening 06/05/25 Z87.891 - Personal history of nicotine dependence Coding Level of Care Code Est Pt Level 4 (73441) Complex EM visit Add On G2211 Diagnoses Emphysema lung J43.9 JIMENA (obstructive sleep apnea) G47.33 Personal history of nicotine dependence Z87.891
== END 2024-09-05 09:28 | disposition home or self-care (01) ==
LOC: HO.HPS 09:06
PROVIDERS: PCP Student in an Organized Health Care Education/Training Program; Visit Provider Internal Medicine Pulmonary Disease
DX: J43.9 Emphysema, unspecified (principal); G47.33 Obstructive sleep apnea (adult) (pediatric); Z87.891 Personal history of nicotine dependence
CPT/HCPCS: 99214

== ENCOUNTER → 2024-09-05 09:05 | Outpatient (BNVA) | payer MEDICAID, SELFPAY | PROVIDERS: PCP Student in an Organized Health Care Education/Training Program; Visit Provider Internal Medicine Pulmonary Disease | DX: J43.9 Emphysema, unspecified (principal); R91.8 Other nonspecific abnormal finding of lung field; F17.210 Nicotine dependence, cigarettes, uncomplicated | CPT/HCPCS: 99212 ==

== ENCOUNTER 2024-10-05 05:42 | Emergency (ER) | payer MEDICAID, SELFPAY ==
--- NOTE | 2024-10-05 | ECG_ITS ---
Test Reason : chest pain Blood Pressure : / mmHG Vent. Rate : 082 BPM Atrial Rate : 082 BPM P-R Int : 128 ms QRS Dur : 080 ms QT Int : 340 ms P-R-T Axes : 079 071 025 degrees QTc Int : 397 ms Sinus rhythm with marked sinus arrhythmia Possible Left atrial enlargement Borderline ECG No previous ECGs available Referred By: Generic ED Physician Electronically Signed By:Stone Sue
--- NOTE | ~2024-10-05 | XR_ITS ---
EXAMINATION: XR CHEST CLINICAL INFORMATION: chest pain COMPARISON: CT lung 05/30/2024 TECHNIQUE: Frontal view of the chest was obtained. FINDINGS: The lungs are well-expanded and clear acute process. The heart size and pulmonary vascularity is normal. No gross bony abnormality seen. XR/XR chest 1V IMPRESSION: Unremarkable chest exam. Electronically signed by: Josias Melchor MD 10/05/2024 07:09 AM [facility]
[2024-10-05 05:48] VITALS: BP 127/88; BP 140/82; PULSE 88; PULSE 95; RESP 25; TEMP 36.4; O2SAT 100; O2SAT 98; BMI 22.9
[2024-10-05 06:05] LABS: Basophils Absolute Auto 0.1 X10*3/uL (0.0-0.2); Basophils Percent Auto 0.4 % (0-2); Eosinophils Absolute Auto 0.1 X10*3/uL (0.0-0.4); Eosinophils Percent Auto 0.9 % (0-4); Hemoglobin 13.5 g/dl (14.0-18.0); Imm Gran Abs Auto 0.04 X10*3/uL (0.00-0.03); Imm Gran Pct Auto 0.3 % (0.0-0.4); Lymphocytes Absolute Auto 2.8 X10*3/uL (1.2-4.9); Lymphocytes Percent Auto 24.1 % (20-40); MANUAL DIFF FLAG NO; Mean Corpuscular HGB Conc 33.8 g/dl (31.0-36.0); Mean Corpuscular Hemoglobin 27.7 pg (27.0-33.0); Mean Platelet Volume 8.7 fL (9.4-12.4); Monocytes Absolute Auto 1.2 X10*3/uL (0.1-1.2); Monocytes Percent Auto 10.2 % (2-11); Neutrophils Absolute Auto 7.5 x10*3/uL (2.0-8.3); Neutrophils Percent Auto 64.1 % (45-73); Platelet Count 238 X10*3/uL (160-400); Red Blood Count 4.88 X10*6/uL (4.60-5.80); Red Cell Distribution Width 13.6 % (11.0-16.0); White Blood Count 11.6 X10*3/uL (4.8-10.8)
--- NOTE | 2024-10-05 06:17 | PC.NURSE ---
pt biba from home, a&ox4, respirations even and unlabored. pt reports sudden onset of right sided rib pain radiating into the lower and upper right side of ribs. pt denies any trauma to the body. pt reports the pain increases with inspiration and increases with movement, pt right side tender to touch at this time. pt reports it feels as if it is hard to catch his breath due to the pain. ekg obtained, 18G placed in right forearm, labs obtained and sent to lab.
[2024-10-05 06:19] LABS: Alanine Aminotransferase 18 U/L (0-40); Albumin Level 4.3 g/dL (3.5-5.0); Alkaline Phosphatase 67 U/L (39-117); Anion Gap 14 (12-20); Aspartate Amino Transferase 34 U/L (5-37); Bilirubin Total 0.7 mg/dL (0.0-1.0); Blood Urea Nitrogen 20 mg/dL (9-16); Calcium 9.7 mg/dL (8.4-10.2); Carbon Dioxide 21 mmol/L (22-29); Chloride 105 mmol/L (96-108); Creatinine Clr Calc Pharmacy 79.6; Estimated Glomerular Filt Rate > 60; Glucose Random 108 mg/dL (60-115); Lipase 20 U/L (8-78); Potassium 3.6 mmol/L (3.3-5.1); Sodium 136 mmol/L (135-145); Total Protein 7.2 g/dL (6.5-8.0)
[2024-10-05 06:27] LABS: Troponin-I High Sensitivity < 2.7 ng/L (<3.5-35.0)
--- NOTE | 2024-10-05 06:48 | ED_ITS ---
HPI - Chest Pain General Chief Complaint: Chest Pain Stated Complaint: RIDE SIDED BREAST PAIN Time Seen by Provider: 10/05/24 06:47 Source: patient Mode of arrival: ambulatory Limitations: no limitations History of Present Illness ED Provider: Dr. Seng Go HPI narrative: 59-year-old male who presents emergency department for evaluation of right-sided pleuritic chest pain. The patient states that last night at 23:00 hours he was cocaine. He states he reached under the stove to get a cronin when he had sudden onset of pain in the right chest. He states the pain was 10/10 at its onset. The pain is a sharp pain which is worse with movement and worse with breathing. The patient states he has a chronic cough secondary to smoking. He does feel short of breath and has dyspnea on exertion. He denied fever, chills, nausea, vomiting. He was not had any lower extremity pain or swelling and he was not gone on any recent long trips. He was no history of DVT/PE. Related Data Home Medications ?Medication ?Instructions ?Recorded ?Confirmed atorvastatin 10 mg tablet 10 mg PO DAILY 03/13/24 08/06/24 lidocaine 5 % topical patch 3 patch topical DAILY 03/13/24 08/06/24 codeine sulfate 15 mg tablet 5 mg PO BID PRN 08/21/24 Previous Rx's ?Medication ?Instructions ?Recorded umeclidinium 62.5 mcg-vilanterol 1 inh inhalation DAILY 30 days #1 08/17/23 25 mcg/actuation powdr for ea inhalation (Anoro Ellipta) gabapentin 600 mg tablet 600 mg PO BID 30 days #60 tabs 03/13/24 oxycodone 5 mg tablet 5 mg PO Q6H PRN pain #10 tabs 10/05/24 Allergies Allergy/AdvReac Type Severity Reaction Status Date / Time No Known Allergies Allergy Verified 10/05/24 05:52 Review of Systems 2 Review of Systems: Yes all other systems are reviewed and are negative [facility] Past Medical History [facility] Narrative: Social history: Patient smokes 3-4 cigarettes per day. He occasionally drinks alcohol. He smokes marijuana. He denies other drug use. Medical History No known health problems Surgical History No pertinent past surgical history Family History Family History Other No family history of coronary artery disease Social History Social History Are you a primary nursing care attendant to a significant other at home: No Do you presently have visiting nurse or other home services: No Alcohol intake: current Alcohol intake frequency: holidays/special occasions only Patient Tobacco Use Status: Current everyday Tobacco user Tobacco use type: Cigarette Cigarettes Per Day: 5 Smoked in Last 30 Days: Yes Use of substances other than those prescribed or required for medical reasons: No Substance Use Type: Marijuana Advance Directives: No Advance Directives Information Provided: Yes Do you have a plan to hurt others: No Plan service: No Current occupational status: employed Physical Exam 2 Vital Signs: Vital Signs: Last Vital Signs Temp 97.6 F 10/05/24 05:48 Pulse 88 10/05/24 05:48 Resp 25 H 10/05/24 05:48 BP 127/88 10/05/24 05:48 Pulse Ox 100 10/05/24 05:48 O2 Del Method Room Air 10/05/24 05:48 BMI result Body Mass Index 22.9 Vital signs revealed an elevated respiratory rate of 25 with a normal O2 saturation of 100% on room air Exam: General: Awake, alert, appears to be in distress secondary to his right-sided chest pain Head: Normocephalic, atraumatic EENT: PERRL, Lids normal, sclera normal, conjunctiva normal, nose normal , ears normal, throat without erythema or exudates Neck: Supple, no adenopathy Lung: breath sounds symmetric, no wheezing, rales or rhonchi Chest: symmetric movement, tenderness palpation in his right anterior chest, no erythema, increased warmth or lesions noted Heart: regular rate and rhythm, normal S1, S2 no murmurs or rubs Abdomen: soft, non-tender, nondistended, normal bowel sounds Back: no vertebral tenderness, no CVAT Extremities: no deformities, moves all extremities symmetrically Neuro: Awake, alert, oriented, normal speech, cranial nerves intact, moves all extremities symmetrically Psych: Pleasant, cooperative Medications Administered Discontinued Medications Generic Name Dose Route Start Last Admin Trade Name Edilma PRN Reason Stop Dose Admin Ketorolac Tromethamine 15 mg 10/05/24 07:42 10/05/24 07:51 Ketorolac Tromethamine 15 Mg/Ml Vial IVPUSH 10/05/24 07:43 15 mg ONCE ONE Administration Medical Decision Making Medical Decision Making [facility] Narrative: 59-year-old male who presents emergency department for evaluation of right-sided pleuritic chest pain worse with breathing and movement, sudden onset last night at 23:00 hours when he was reaching for a cronin. Review of systems was unremarkable. Patient had an elevated respiratory rate of 25 otherwise vital signs unremarkable. Physical examination revealed tenderness palpation over his right anterior chest with no erythema, increased warmth or lesions. Differential diagnosis: ?Includes but is not limited to myocardial infarction, myocardial ischemia, pulmonary embolism, pleuritic chest pain, costochondritis, shingles, electrolyte abnormalities, anemia Course: 08:26 My interpretation patient's laboratory evaluation is as follows: CBC was normal. CMP was unremarkable. High sensitive troponin I was below detectable limits. Lipase was normal. D-dimer was below detectable limits. Patient's findings are consistent with pleurisy verses right musculoskeletal strain. Patient was initially treated with Toradol with no improvement in his pain. He was then given morphine 4 mg IV with improvement. Patient was advised to take Tylenol for pain and for pain not relieved by these medications he was prescribed oxycodone 5 mg 1 pill every 6 hours as needed for pain dispense 10. He was advised to apply ice to his right chest for 15 minutes 4 to 6 times a day for the next 2-3 days. He was given printed and verbal instructions and discharged home. Admission/Observation Consideration of admission/observation: Escalation of care including admission/observation considered (Yes) Lab Data MDM Lab Attestation statement: I reviewed the patient's lab results. 10/05/24 05:58 10/05/24 05:58 Labs: Lab Results 10/05/24 Range/Units 05:58 WBC 11.6 H (4.8-10.8) X10*3/uL RBC 4.88 (4.60-5.80) X10*6/uL Hgb 13.5 L (14.0-18.0) g/dl Hct 40.0 L (42.0-52.0) % MCV 82.0 (80.0-98.0) fL MCH 27.7 (27.0-33.0) pg MCHC 33.8 (31.0-36.0) g/dl RDW 13.6 (11.0-16.0) % Plt Count 238 (160-400) X10*3/uL MPV 8.7 L (9.4-12.4) fL Immature Gran % (Auto) 0.3 (0.0-0.4) % Neut % (Auto) 64.1 (45-73) % Lymph % (Auto) 24.1 (20-40) % Emanuel % (Auto) 10.2 (2-11) % Eos % (Auto) 0.9 (0-4) % Baso % (Auto) 0.4 (0-2) % Lymph # (Auto) 2.8 (1.2-4.9) X10*3/uL Emanuel # (Auto) 1.2 (0.1-1.2) X10*3/uL Eos # (Auto) 0.1 (0.0-0.4) X10*3/uL Baso # (Auto) 0.1 (0.0-0.2) X10*3/uL Abs Immat Gran (auto) 0.04 H (0.00-0.03) X10*3/uL Absolute Neuts (auto) 7.5 (2.0-8.3) x10*3/uL Absolute Nucleated RBC 0.000 (0.0-0.012) X10*3/uL Nucleated RBC % (auto) 0.0 (0.0-0.2) /100WBC APTT 32.7 (26.0-36.8) SEC D-Dimer High Sensitivty < 150 NG/ML Hold Blue Top SEE NOTE Sodium 136 (135-145) mmol/L Potassium 3.6 (3.3-5.1) mmol/L Chloride 105 (96-108) mmol/L Carbon Dioxide 21 L (22-29) mmol/L Anion Gap 14 (12-20) BUN 20 H (9-16) mg/dL Creatinine 0.89 (0.5-1.4) mg/dL Estim Creat Clear Calc 79.6 Estimated GFR > 60 Random Glucose 108 (60-115) mg/dL Calcium 9.7 (8.4-10.2) mg/dL Total Bilirubin 0.7 (0.0-1.0) mg/dL AST 34 (5-37) U/L ALT 18 (0-40) U/L Alkaline Phosphatase 67 (39-117) U/L Troponin I High Sens < 2.7 (<3.5-35.0) ng/L Total Protein 7.2 (6.5-8.0) g/dL Albumin 4.3 (3.5-5.0) g/dL Lipase 20 (8-78) U/L Independent Interpretation I performed an independent interpretation of an: EKG and Plain X-Ray Interpretation: My independent interpretation the patient's 1 view chest x-ray is as follows: No acute disease My independent interpretation of the patient's 12 EKG done at 05:50 hours is as follows: Normal sinus rhythm with a rate of 82, normal CA interval, QRS duration QTC interval, no ST segment elevation, no ST segment depression, peaked T-waves V3 through V6, no PACs, no PVCs. No old EKG for comparison Radiology Impression Discussion of test interpretation with radiology: I have reviewed the radiologist's reading. Radiologist Impression: XR chest 1V IMPRESSION: Unremarkable chest exam. Electronically signed by: Josias Melchor MD 10/05/2024 07:09 AM Prescription Management I considered prescription management with: Pain Medication (Oxycodone) Chronic Conditions Patient?s care impacted by: Other (COPD) Discharge Plan Discharge Clinical Impression: Right-sided chest wall pain Patient Disposition: Home, Self-Care Additional Instructions: Your blood work was normal including a nondetectable troponin (marker of heart damage/heart attack) and a nondetectable D-dimer (marker of blood clots to your lungs). This is very reassuring. Your chest x-ray was normal. Your EKG was unremarkable. On your exam you have tenderness when I push on the right side of your chest and this is consistent with inflammation of the joints of the muscles of your chest. Use ice on the right side of your chest for 15 minutes 4 to 6 times a day for the next 2 days to help reduce the swelling and inflammation in your chest. Take Tylenol (acetaminophen) 500 mg pills, 2 pills every 6 hours as needed for pain. For pain not relieved by Tylenol take oxycodone 5 mg pills, 1 pill every 6 hours as needed for pain. Do not drive or work while taking this medication since they can cause sleepiness. Oxycodone is a narcotic medication that can be addicting. If you are concerned about addiction you can ask the pharmacist for less pills or do not get this prescription filled. Follow-up with your doctor in 2 days. Please return to the emergency department if your symptoms get worse or if you develop any symptoms that are concerning to you. Prescriptions: New oxycodone 5 mg tablet 5 mg PO Q6H PRN (Reason: pain) Qty: 10 0RF Rx Instructions: Patient may request partial refill; Partial Fill upon patient request. No Action Anoro Ellipta 62.5-25 mcg/actuation blister with device 1 inh inhalation DAILY 30 Days Qty: 1 6RF lidocaine 5 % adhesive patch,medicated 3 patch topical DAILY Rx Instructions: leave on most painful area for up to 12 hrs atorvastatin 10 mg tablet 10 mg PO DAILY gabapentin 600 mg tablet 600 mg PO BID 30 Days Qty: 60 8RF codeine sulfate 15 mg tablet 5 mg PO BID PRN Print Language: Spanish
[2024-10-05] MEDS: Ketorolac Tromethamine 15 MG/ML VIAL IVPUSH (07:51)
[2024-10-05 08:07] LABS: Partial Thromboplastin Time 32.7 SEC (26.0-36.8)
[2024-10-05 08:12] LABS: D Dimer High Sensitivity < 150 NG/ML
[2024-10-05 08:29] VITALS: BP 130/91; PULSE 94; RESP 20; TEMP 36.4; O2SAT 97
[2024-10-05 08:31] VITALS: BP 130/91; PULSE 94; RESP 20
[2024-10-05 08:32] VITALS: RESP 13
[2024-10-05] MEDS: Morphine Sulfate 4 MG/ML CARTRIDGE IVPUSH (08:32)
[2024-10-05 08:47] VITALS: BP 130/90; PULSE 94; RESP 14; TEMP 36.8; O2SAT 96
== END 2024-10-05 08:48 | disposition home or self-care (01) ==
PROVIDERS: Emergency Provider Emergency Medicine Emergency Medical Services
DX: R07.89 Other chest pain (principal); R06.02 Shortness of breath; F17.210 Nicotine dependence, cigarettes, uncomplicated; F12.90 Cannabis use, unspecified, uncomplicated
CPT/HCPCS: 36415; 71045; 80053; 83690; 84484; 85025; 85379; 85730; 93005; 96374; 96375; 99284; 99285; J1885; J2270

== ENCOUNTER → 2024-10-05 05:50 | Outpatient (BNV) | payer MEDICAID, SELFPAY | PROVIDERS: Emergency Provider Emergency Medicine Emergency Medical Services; Visit Provider Internal Medicine Cardiovascular Disease | DX: R07.9 Chest pain, unspecified (principal) | CPT/HCPCS: 93010 ==

== ENCOUNTER 2025-02-15 09:50 | Outpatient (REF) | payer MEDICAID, SELFPAY ==
--- NOTE | ~2025-02-15 | MR_ITS ---
EXAMINATION: MR BRAIN WITHOUT CONTRAST CLINICAL INFORMATION: Memory loss COMPARISON: None available. TECHNIQUE: MRI of the brain was obtained using routine sequences without contrast. FINDINGS: No restricted diffusion. No acute intracranial hemorrhage, mass effect, midline shift, hydrocephalus or herniation. Sanchez-white matter differentiation is normal. There is no signal abnormality or volume loss at the hippocampi. Flow-void signal within the main cerebral vessels is normal. Sellar/suprasellar region is normal. Craniocervical junction is intact and normal. There is mucosal thickening and secretions involving the paranasal sinuses with the pronounced involvement at the frontal ethmoid recess. MR/MR head/brain wo con IMPRESSION: No acute brain abnormality. No signal abnormality or volume loss in the hippocampi. Acute on chronic paranasal sinus disease. Electronically signed by: Tino Claudio MD 02/18/2025 09:10 AM EDT
--- OUTSIDE RECORDS SUMMARY | 2025-02-15 09:53 | XMS_ITS | Clinical Summary ---
Author Organization [employer] Address [address] [place] [address] Care Team Providers Care Global Chief Creative Officer Name Role Phone Gianna Rodríguez MD Primary Care Pro vider Allergies No known active allergies Medications * This document contains information received from the source organization and may not represent a complete record from that organization. Umeclidinium-Vi lanterol 62.5-25 MCG/ACT aerosol powder Inhale. Activ e lidocaine (Lidoderm) 5 % patch Apply 1 patch topically Once per day. Remove & discard patch within 12 hours or as directed by . 30 patch 1 4 Active nicotine (Nicoderm, Step 3) 7 MG/24HR patch PLACE 1 PATCH ON THE SKIN 1 TIME EACH DAY AT THE SAME TIME. 42 patch 1 5 Active atorvastatin (Lipitor) 10 MG tablet TAKE 1 TABLET BY MOUTH EVERY DAY 90 tablet 5 Active gabapentin (Neurontin) 600 MG tabletIndicatio ns:Neuropathy Take 1 tablet (600 mg) by mouth 2 times daily. 60 tablet 1 5 Active Active Problems Problem Noted Date Diagnosed Date Facial tic 02/13/2025 Neuropathy 11/14/2023 COPD (chronic obstructive pulmonary disease) Hyperlipidemia 07/08/2023 Assessment & Plan (07/08/2023 12:13 PM EDT): -04/2023: total CHL 201, LDL 128, HDL 48, -ASCVD: 10.3% (rec for moderate statins -Repeat fasting lipids and chem in 2 mo. If still elevated will offer statins. BRBPR (bright red blood per rectum) 07/08/2023 Assessment & Plan (07/08/2023 12:16 PM EDT): As in abdominal pain problem. Clubbing of fingers 06/04/2023 Assessment & Plan (07/08/2023 12:08 PM EDT): Noted clubbing of finger nails at previous exam. Pt is a tobacco smoker. -CXR: 05/10/2023: minimal non specific biapical subpleural thickening -CT chest w out contrast 05/2023 The lungs are hyperinflated with paraseptal emphysema. There is bilateral apical parenchymal scarring. There are scattered bilateral pulmonary cysts in both lung apices, lingula, right middle lobe and right lower lobe. No pulmonary nodule, mass or consolidation seen. There is bilateral lower lobe mild atelectasis and platelike atelectasis left posterior basal segment. No abnormal size mediastinal or hilar lymphadenopathy seen. There is no pleural effusion. No pleural mass or thickening. There are small shotty lymph nodes in bilateral axilla. No abnormal mediastinal or axillary lymphadenopathy seen. -referred to elevator constructor hydraulic for chest CT findings - started already on Anoro Ellipta and was referred for PFT. -referred for TTE for clubbing -- has apt this mo. Assessment & Plan (06/04/2023 5:06 PM EDT): Noted clubbing of finger nails at previous exam. Pt is a tobacco smoker. -CXR: 05/10/2023: minimal non specific biapical subpleural thickening -Referred today for CT chest, -If neg CT chest will refer for echocardiogram next visit. Tobacco use 05/04/2023 Overview (09/25/2023): Pharmacotherapy: None History: (updated 09/25/2023) Started smoking since age of 18. Has not actively made efforts to quit smoking. At [facility], was smoking about 10 cigarettes daily. Currently only uses about 3-5 cigs daily. Triggers are mostly just time occupation. Not ready to take active efforts to quit at this time Assessment & Plan (09/25/2023 11:05 AM EST): Assessment: - Per USPTF not at goal of complete Tobacco Cessation Plan: - Deferred treatment until patient is ready to actively quit on his own. Assessment & Plan (07/08/2023 12:10 PM EDT): Started 21 until now,stopped x 3 years before but again smoking 3 from 5 cigarettes a day . Smoking for 34 years PQT a year calc 6.8 -No recommendation for lung cancer screening. However w ongoing Sx, refer for CT chest - done 06/21/2023 w no suspicious lesions, but finding of emphysema. -Pt interested in smoking cessation, referred for tobacco cessation program - pt to reschedule apt. -Offered today tobacco cessation aids, but wants to hold. Assessment & Plan (06/04/2023 5:07 PM EDT): Started 21 until now,stopped x 3 years before but again smoking -3 to 5 cigarettes a day . Smoking for 34 years PQT a year calc 6.8 -No recommendation for lung cancer screening. However w ongoing Sx, refer for CT chest today. -Pt interested in smoking cessation, referred for tobacco cessation program - has apt next wk. Assessment & Plan (05/04/2023 9:28 PM EDT): Started 21 until now,stopped x 3 years before but again smoking -3 to 5 cigarettes a day . Smoking for 34 years PQT a year calc 6.8 -No recommendation for lung cancer screening. -Pt interested in smoking cessation, referred today for tobacco cessation program Health care maintenance 05/04/2023 Assessment & Plan (07/08/2023 12:12 PM EDT): -Colonoscopy more than 10 y ago, referred already, has apt for 09/11/2023 -PSA screening 04/2023. PSA total: normal, but free PSA: 33 (increased). Already had CT abdomen w no concerning reports from prostate. -Vaccines - refused Covid vaccination offered multiple times. S/p 04/2023 P20 and Tdap 2022. Assessment & Plan (06/04/2023 5:14 PM EDT): -Colonoscopy more than 10 y ago, referred already, has apt for 09/11/2023 -PSA screening 04/2023. PSA total: normal, but free PSA: 33 (increased). Already had CT abdomen, will f image result. -Vaccines - refused Covid vaccination offer today. S/p 04/2023 P20 and Tdap ----- -04/2023: BUN17, total CHL 201, LDL 128, HDL 48, ASCVD: 10.3% (rec for moderate statins - will discuss w pt if wants to start Rx vs repeating fasting lipids and chem in 3 mo) 04/2023: PLT no value, given clumped, and noted immature granulocytes increased in percentage and absolute value. Repeat today CBC, smear, and manual PLT count Assessment & Plan (05/04/2023 9:30 PM EDT): -labs x annual exam-RTC while fasting -pt agreed to have STI testing including HIV to have for baseline -Colonoscopy more than 10 y ago, referred today -Vaccines - refused Covid vaccination offer today. P20 and Tdap today Biceps rupture, proximal, right, initial encount er 05/04/2023 Assessment & Plan (07/08/2023 12:09 PM EDT): -Right arm/shoulder XR 2021: Mild degenerative changes glenohumeral joint. No visible acute fracture, dislocation or subluxation seen. There is no visible fracture involving the right humerus. There is a soft tissue bulge along the distal right arm question biceps rupture versus mass. ---referred to ortho before and seen before by ortho, but not Qx was done, refusing further referral Assessment & Plan (06/04/2023 5:14 PM EDT): -Right arm/shoulder XR 2021: Mild degenerative changes glenohumeral joint. No visible acute fracture, dislocation or subluxation seen. There is no visible fracture involving the right humerus. There is a soft tissue bulge along the distal right arm question biceps rupture versus mass. ---referred to ortho before and seen before by ortho, but not Qx was done, refusing further referral Assessment & Plan (05/04/2023 9:26 PM EDT): -Right arm/shoulder XR 2021: Mild degenerative changes glenohumeral joint. No visible acute fracture, dislocation or subluxation seen. There is no visible fracture involving the right humerus. There is a soft tissue bulge along the distal right arm question biceps rupture versus mass. ---referred to ortho before and seen before by ortho, but not Qx was done Bipolar disorder 05/04/2023 Assessment & Plan (08/22/2024 10:15 AM EDT): During IBH Consult Dialn presenting with Fear of abandonment, Pattern of unstable and intense interpersonal relationships, Impulsivity, Affective instability, Feelings of emptiness, Intense anger, and Other: lack of trust in interpersonal relationships; for a period of 18+ mo, for most or all symptoms in the context of family issues, illness or family illness, and chronic mental health condition. Dilan carries a diagnosis for Bipolar disorder. Pt reports being able to manage sxs by using coping strategies. Lack of social/family support and lack of engagement with mental health services are main barrier for issues. Not taking medication for symptoms. His grandson is main strength identified. During intervention pt was engaged in supportive therapy through active listening, validation of emotions and open-ended questions. Reviewed and assessed risks and current stressors, symptoms and social support/network. Pt was referred in the past to OP and psychiatry services. Pt wasn't satisfied with services and terminated treatment. Assessment & Plan (07/08/2023 12:14 PM EDT): Pt w hx of Bipolar dx. Per pt diagnosed ys ago, not on tx Pt w hypomania and depressive sx. PHQ9 - 8. Denies SI. - evaluated pt at previous visit and to refer pt for outpatient psychotherapy, has not received apt yet. I gave today to pt printed info on [facility] to call. - Pt refuses psychiatrist referral at this time. - Referred already to case assembler due to job insecurity--- pt reports having an interview coming up next week. Assessment & Plan (07/04/2023 12:37 PM EDT): Patient was referred to consult during PCP visit for mild depressive score on PHQ9 (SCORE 8) and reported anxiety. Pt w hypomania and depressive sx. PHQ9 - 8. Patient presents with rapid/pressured speech, flight of ideas, increased psychomotor movements, restlessness, expanded affect, reports anhedonia and depressed mood (incongruent with affect), irritability, hopelessness, decreased sleep and reported fatigued, Denies SI, HI or perceptual disturbances. During intervention provider engaged patient in supportive therapy thorough active listening, validation of emotions. Reviewed and assessed risk and current symptoms, stressors and social supports through both open ended and close questions. At this time patient indicated being open to referral to OP services to manage sxs, but declined referrals for psych med management. Information for [facility] was provided, as well as ways to connect with dept at [facility]. Assessment & Plan (06/04/2023 5:10 PM EDT): Pt w hx of Bipolar dx. Per pt diagnosed ys ago, not on tx Pt w hypomania and depressive sx. PHQ9 - 8. Denies SI. - evaluated pt at previous visit and to refer pt for outpatient psychotherapy, has not received apt yet. I gave today to pt printed info on [facility] to call. - Pt refuses psychiatrist referral at this time. - Referred already to case assembler due to job insecurity Assessment & Plan (05/04/2023 9:33 PM EDT): Pt w hx of Bipolar dx. Per pt diagnosed ys ago, not on tx Pt w hypomania and depressive sx. PHQ9 - 8. Denies SI. - evaluated pt today and to refer pt for outpatient psychotherapy - Pt refuses psychiatrist referral at this time. - Referred today to case assembler due to job insecurity Abdominal pain 05/04/2023 Assessment & Plan (07/08/2023 12:06 PM EDT): Pt w multiple concerning sx including mo of on and off mesogastric abdominal pain, diarrhea on and off (not currently), BRBR, night sweats, clubbing. Slight changes in wt going up and down. -FOBT 05/2023 Neg. Hb 06/18/2023: 14.5 and platelets wnl. LDH wnl and Quantiferon neg. -CT abd / pelvis w contrast 05/31/2023 1. No acute intra-abdominal/pelvic abnormality to explain the patient's pain. Mild to moderate distal colonic diverticulosis without evidence for acute diverticulitis. Mild centrilobular/paraseptal emphysema in the visualized lung bases. -Referred to GI for colonoscopy and further evaluation - has apt for 09/11/2023. -- Requested today to [facility] to call GI office to try and reschedule for earlier visit. -Advised pt of alarm signs and Sx, including having continuous rectal bleeding - to go to ED. -Pt prefers taking PO tablets, so will hold on Fe supplementation while bleeding w normal Hb for now, but will repeat CBC in 2 mo to monitor Hb if ongoing bleeding persists. Assessment & Plan (06/04/2023 5:13 PM EDT): Pt w multiple concerning sx including mo of on and off mesogastric abdominal pain, diarrhea on and off (not currently), BRBR, night sweats, clubbing. Noted wt gain of 3 lb in the last mo. -Referred to GI for colonoscopy-has apt for 09/11/2023 -CT scan of abdomen and pelvis w and wo contrast done 2 d ago - already requested record to [facility]-Christine Bob--- I will call pt if any significant result, otherwise to discuss at upcoming visit in 4 wk. -Reordering test requested at last visit but not done (Vit D, Quantiferon, FOBT). Will do LDH today. Assessment & Plan (05/04/2023 9:36 PM EDT): Pt w multiple concerning sx including mo of on and off mesogastric abdominal pain, diarrhea on and off (not currently), BRBR, night sweats, clubbing. -Referred today to GI for colonoscopy, FOBT -CT scan of abdomen and pelvis w an wo contrast -CXR to evaluate clubbing and in the setting of tobacco use. If neg will refer for CT chest, and echocardiogram. -Labs to be done for annual exam Back pain 05/04/2023 Assessment & Plan (07/08/2023 12:15 PM EDT): Lower back pain described as spasms Normal neurologic exam at last visit and no complaints at this time -Advise warm compresses -Tylenol PRN -Pt accepted to use lidocaine patches -Referred today for back image Assessment & Plan (06/04/2023 5:10 PM EDT): Lower back pain described as spasms Normal neurologic exam at last visit and no complaints at this time -Advise warm compresses -Tylenol PRN -Pt refusing lidocaine patches -If ongoing sx at next visit will refer for back image Assessment & Plan (05/04/2023 9:39 PM EDT): Lower back pain described as spasms Normal neurologic exam -Advise warm compresses -Tylenol PRN -Pt refusing lidocaine patches -If ongoing sx at next visit will refer for back image Resolved Problems Problem Noted Date Diagnosed Date Resolved Date Abnormality of lung on CXR 06/04/2023 0 06/04/2023 Encounters * This document contains information received from the source organization and may not represent a complete record from that organization. Date Type Department Care Team Description 02/13/2025 11:15 AM EDT Office Visit [facility] [address] [place] [phone] Gianna Rodríguez MD Memory loss (Primary Dx); Bipolar affective disorder, current episode mixed, current episode severity unspecified (CMS/HCC); Simple chronic bronchitis (CMS/HCC); Health care maintenance; Tobacco use; Neuropathy; Facial tic 02/13/2025 Travel 02/06/2025 Telephone [facility] [address] [place] [address] Gianna Rodríguez MD chart prep 02/06/2025 Patient Outreach [facility] [address] [place] [address] Gianna Rodríguez MD Pre-visit Planning (SDOH negative, Tobacco screening negative.) 01/10/2025 Population Health Risk Score [facility] ([facility]) Department [address] [id number] Provider, Population Health Generic 12/27/2024 Telephone [facility] [address] [place] [address] Gianna Rodríguez MD Med Refill 12/27/2024 Orders Only [facility] [address] [place] [address] Lamar Barrios ANP Neuropathy (Primary Dx) 12/27/2024 Telephone [facility] [address] [place] [phone] Gianna Rodríguez MD January12/20/2024 Refill [facility] [address] [place] [address] Gianna Rodríguez MD 12/11/2024 Telephone [facility] [address] [place] [address] Gianna Rodríguez MD Care Coordination (ICP Care Plan ) 11/17/2024 Refill [facility] [address] [place] [phone] Gianna Rodríguez MD from Last 3 Months Immunizations Name Administration Dates Next Due Pneumococcal Conjugate PCV 20 05/04/2023 Tdap 05/04/2023 Family History Medical History Relation Name Comments Ulcerative colitis Mother Relation Name Status Comments Mother Social History Tobacco Use Types Packs/Day Years Used Date Smoking Tobacco: Some Days Cigarettes 0.2 39.3 Started: 1985 Passive Smoke Exposure: Current Tobacco Cessation:Ready to Q uit: Not Asked; Counseling Given: Not Answered Comments:Started 21 until now,stopped x 3 years before but again smoking -3 to 5 cigarettes a day . Smoking for 34 years PQT a year calc 6.8 Alcohol Use Standard Drinks/Week Comments Yes 0 (1 standard drink = 0.6 oz pur e alcohol) social Alcohol Answer Date Recorded Frequency of Alcohol Consumption Not on file 12/26/2023 Average Number of Drinks Not on file 024 Frequency of Binge Drinking Not on file 12/01 Score 0 12/26/2023 Depression Answer Date Recorded Patient Health Questionnaire-9 Score 0 02/13/2025 Patient Health Questionnaire-9 Score 0 02/13/2025 Last PHQ-9: Questionnaire Data Not on file 0 02/13/2025 Housing Stability Answer Date Recorded What is your housing situation today? I have danae grimaldo 08/05/[address] you li ve. Do you have problems with any of the following? None of the above 08/05/2024 Food Insecurity Answer Date Recorded Within the past 12 months, y ou worried that your food would run out before you got money to buy more: Never True 07/12/2024 Within the past 12 months,th e food you bought just didn't last and you didn't have enough money to get more: Never True Transportation Answer Date Recorded In the past 12 months, has l ack of transportation kept you from medical appts, meetings, work or from getting things needed for daily living? No 02/06/2025 Utilities Answer Date Recorded In the past 12 months, has t he electric, gas, oil or water company threatened to shut off services in your home? No 07/12/2024 Depression Answer Date Recorded Patient Health Questionnaire-2 Score 0 02/13/2025 Internet Access Answer Date Recorded Internet Access Q1 Yes 07/12/2024 Internet Access Q2 Not on file 07/12/2024 Sex and Gender Information Value Date Recorded Sex Assigned at Male 08/29/2022 10:40 AM EDT Legal Sex Male 10:40 AM EDT Gender Identity Male 08/29/2022 10:40 AM EDT Sexual Orientation Straight 05/04/2023 2: 06 PM EDT Last Filed Vital Signs Vital Sign Reading Time Taken Comments Blood Pressure 139/89 02/13/2025 10:55 AM EDT Pulse 90 02/13/2025 10:55 AM EDT Temperature 36.4 ??C (97.6 ??F) 02/13/2025 1 0:55 AM EDT Respiratory Rate 20 02/13/2025 10:5 5 AM EDT Oxygen Saturation 97% 02/13/2025 10: 55 AM EDT Inhaled Oxygen Concentration - - Weight 64.3 kg (141 lb 12.8 oz) 025 10:55 AM EDT Height 163.8 cm (5' 4.5 ) 02/13/2025 10 :55 AM EDT Body Mass Index 23.96 02/13/2025 10:55 AM EDT Plan of Treatment Upcoming Encounters Date Type Department Care Team (Late st Contact Info) Description 02/25/2025 9:30 AM EDT Clinical Support [facility] [address] [place] [phone] 04/10/2025 9:30 AM EDT Office Visit [facility] [address] [place] [address] [phone] Gianna Rodríguez MD [address] [place] [address] Health Maintenance Due Date Last Done Comments CT Colonography 1967 FIT DNA/Cologuard 1967 FIT 1967 FOBT 1967 HIV Screening 1967 Sigmoidoscopy 1967 Hepatitis C Screening 1985 Hepatitis B Vaccines (1 of 3 - 19+ 3-dose series) 1986 Zoster Vaccines (1 of 2) 2017 COVID-19 Vaccine ( - 2023-2 5 season) 2024 Influenza Vaccine (#1) 2024 SDOH Screening 02/06/2026 02/06/2025 Alcohol/Substance Use Screening 02/13/2026 02/13/2025 Depression Screening 02/13/2026 02/13/2025, 02/13/2025 Tobacco Screening 02/13/2026 02/13/2025 Colonoscopy 08/06/2027 08/06/2024 Colorectal Cancer Screening 08/06/2027 Lipid Panel 11/14/2028 11/14/2023 DTaP/Tdap/Td Vaccines (2 - T d or Tdap) 05/04/2033 05/04/2023 RSV Patients and Patients Aged 60 years or older (1 - 1-dose 75+ series) 2042 Pneumococcal Vaccine: 50+ Years Completed 05/04/2023 HIB Vaccines Aged Out No longer eligi ble based on patient's age to complete this topic HPV Vaccines Aged Out No longer eligi ble based on patient's age to complete this topic Hepatitis A Vaccines Aged Out No long er eligible based on patient's age to complete this topic IPV Vaccines Aged Out No longer eligi ble based on patient's age to complete this topic Meningococcal Vaccine Aged Out No mark vijay eligible based on patient's age to complete this topic RSV under 20 months Aged Out No longe r eligible based on patient's age to complete this topic Rotavirus Vaccines Aged Out No longer eligible based on patient's age to complete this topic Goals Goal Patient Goal Type Associated Problems Recent Progress Patient-Stated? Author Reduce tobacco use (cigarettes, smokeless, etc) Tobacco Use Tobacco use On track( 023 11:05 AM EST) No Parvez [place], Carrie Note: Down to 3 cigarettes daily. Procedures Procedure Name Priority Date/Time Associated Diagnosis Comments COLONOSCOPY Routine 08/06/2024 3:46 PM EDT LIPID PANEL, STANDARD Routine 11/14/2023 10:51 AM EST Hyperlipidemia, unspecified hyperlipidemia type from Last 3 Months or Most Recently Relevant to Health Maintenance Results * Colonoscopy (08/06/2024 3:46 PM EDT) Historical Provider HEALTH MAINTENANCE Final Result * (ABNORMAL) Lipid Panel, Standard (11/14/2023 10:51 AM EST) Triglycerides 63 <150 mg/dL [facility] Comment:Desirable Triglyceri de: less than 150 mg/dLBorderline High Triglyceride 150-199 mg/dLHigh Triglyceride: 200-499 mg/dLVery High Triglyceride: greater than or equal to 5OO mg/dL Cholesterol 199 <200 mg/dL [facility] Comment:Desirable Cholestero l: less than 200 mg/dLBorderline High Cholesterol: 200-239 mg/dLHigh Cholesterol: greater than 239 mg/dL LDL Cholesterol Calculated 126(H) <100 mg/dL [facility] Comment:Desirable LDL: less than 100 mg/dLNear Optimal/Above Optimal LDL: 110- 129 mg/dLBorderline High LDL: 130-159 mg/dLHigh LDL: 160-189 mg/dLVery High LDL: greater than or equal to 190 mg/dL HDL Cholesterol 61 >40 mg/dL [facility] Comment:Desirable HDL: great er than 40 mg/dL Note: This HDL assay may give artificially low results in patients with liver disease. Blood Venous blood specimen / Unknown 11/14/2023 10:51 AM EST 11/14/2023 11:24 AM EST Gianna Amado MD LAB BLOOD ORDERAB LES Final Result [facility] [address] [place] [address] [phone] from Last 3 Months or Most Recently Relevant to Health Maintenance Insurance [address] [place] [phone] [facility] [address] [place] [address] Care Teams Global Chief Creative Officer Relationship Specialty Start Date End Date Gianna Rodríguez MD [address] [place] [address] [place] [address] PCP - General Internal Medicine 05/04/23 Maribeth Pierce Programmer Analyst Health [employer] Screw Assembler 12/11/24
--- OUTSIDE RECORDS SUMMARY | 2025-02-15 09:53 | XMS_ITS | Encounter Summary ---
Author Organization [employer] Address [address] [facility] 7t [place] [address] Care Team Providers Care Supervisor Melt House Name Role Phone Keturah Russell Primary Care Provider [phone] Gianna Rodríguez MD Primary Care Pro vider Reason for Visit * Reason Onset Date Comments New patient Appt 03/21/2023 Encounter Details Date Type Department Care Team (Late st Contact Info) Description 03/21/2023 Telephone [facility] MEDICINE [address] [place] [address] Keturah Russell FNP [address] [place], [place] [phone] New patient Appt Social History Tobacco Use Types Packs/Day Years Used Date Smoking Tobacco: Never Assessed Sex and Gender Information Value Date Recorded Sex Assigned at Male 08/29/2022 10:40 AM EDT Legal Sex Male 10:40 AM EDT Gender Identity Male 08/29/2022 10:40 AM EDT Sexual Orientation Straight 05/04/2023 2: 06 PM EDT documented as of this encounter Miscellaneous Notes * Telephone Encounter - Shyanne Rapp - 03/21/2023 1:31 PM EDT PAR Shyanne Lilly called pt to offer STATOR TESTER appt. Pt demographics and insurance information were verified. Pt reports no medical conditions. Pt is not taking any medication at this time. Pt given STATOR TESTER appt with on PCP Dr. Keturah Russell @ 1:45 pm. Pt will be sent appt reminder card and medical release form and agrees to complete and to return to medical records prior to STATOR TESTER appt. documented in this encounter Plan of Treatment Upcoming Encounters Date Type Department Care Team (Late st Contact Info) Description 02/25/2025 9:30 AM EDT Clinical Support [address] [phone] 04/10/2025 9:30 AM EDT Office Visit [address] [address] Gianna Rodríguez MD [address] [place] [phone] documented as of this encounter Visit Diagnoses Not on filedocumented in this encounter Care Teams Supervisor Melt House Relationship Specialty Start Date End Date Keturah Russell FNP [address] [place] [phone] PCP - General Family Medicine 03/21/23 03/29/23 Gianna Rodríguez MD [address] [place] [phone] PCP - General Internal Medicine 05/04/23 Maribeth Pierce Judicial RegistrarPlacer Miner 12/11/24 documented as of this encounter
--- OUTSIDE RECORDS SUMMARY | 2025-02-15 09:53 | XMS_ITS | Encounter Summary ---
Author Organization [employer] Address [address] [place] [address] [place], [place] [address] Care Team Providers Care Vehicle Service Agent Name Role Phone Gianna Rodríguez MD Primary Care Pro vider Reason for Referral * Imaging (Routine) - Authorized Specialty Diagnoses / Procedures Referred By Contac t Referred To Contact Radiology Diagnoses Memory loss Procedures MR Brain w/o Contrast Gianna Rodríguez MD [address] [place] [address] Phone: tel: fax: [address] Phone: tel: fax: Referral ID Status Reason Start Date Expiration Date V isits Requested Visits Authorized [id number] Authorized 02/13/2025 02/13/2026 1 1 Encounter Details Date Type Department Care Team (Late st Contact Info) Description 02/13/2025 11:15 AM EDT Office Visit [facility] MEDICINE [address] [place], [place] [phone] Gianna Rodríguez MD [address] [place], [place] [phone] Memory loss (Primary Dx); Bipolar affective disorder, current episode mixed, current episode severity unspecified (CMS/HCC); Simple chronic bronchitis (CMS/HCC); Health care maintenance; Tobacco use; Neuropathy; Facial tic Social History Tobacco Use Types Packs/Day Years [...] PM EDT documented as of this encounter Last Filed Vital Signs Vital Sign Reading [...] Mass Index 23.96 02/13/2025 10:55 AM EDT documented in this encounter Progress Notes * Gianna Amado MD - 02/13/2025 11:15 AM EDT Subjective Patient ID: Dilan Casper is a 59 y.o. male who presents for f up apt HPI Prefers turkmen 59 y o M with PMX of Bipolar dx and ruptured right biceps 2007 with chronic right shoulder pain, diverticulitis,COPD ,tobacco smoker, mild HLD,neuropathy. Pt comes for f up apt Patient is extremely concerned given his grandchild is not yet going to school. Patient states his daughter would like to homeschool his grandchild and patient is very opposed to this ,states mother'kid is not capable to do that. Dilan states authorities to report is not and has not received any help yet. While discussing about his concerns of his grandchild patient started having significant involuntary movements of his head and neck, states this is not new but has been worsening lately with the distressing situation for him. Patient expressed to be very frustrated and angry today that needs further help with psychiatrist. -Biggest concern for appointment at this time is patient having difficulty grabbing things with hisleft hand , states having pain, numbness, tingling in his left hand specifically in thumb area, denies erythema, swelling or increase in skin temperature and wrist or joints, no recent trauma, patient was supposed to have cervical spine surgery last year but lost care -------- Assessment and Plan: Health care maintenance -Annual exam done 06/2024 -colonoscopy 07/2024 Total of 3 polyps removed ,Internal hemorrhoids. Diverticulosis Bx path :1 Tubular adenoma and 2 hyperplastic polyp to repeat in 3 y -PSA 04/2023. PSA total: normal, but free PSA: 33 (increased). Already had CT abdomen w no concerning reports from prostate.-order already -Vaccines - refused Covid vaccination offered multiple times. S/p P20 2022 and Tdap 2022.Flu vaccine-refuse , Refuse today shingrix vaccine ----- -Started w care management in 07/2024 -no further following Abdominal pain Pt w multiple concerning sx including mo of on and off mesogastric abdominal pain, diarrhea on and off (not currently), BRBR, night sweats, clubbing. Slight changes in wt going up and down.-currentlygained 2 pounds since last visit. -FOBT 05/2023 Neg. Hb 06/18/2023: 14.5 and platelets wnl. LDH wnl and Quantiferon neg. -CT abd / pelvis w contrast 05/31/2023 :No acute intra-abdominal/pelvic abnormality to explain the patient's pain. Mild to moderate distal colonic diverticulosis without evidence for acute diverticulitis. Mild centrilobular/paraseptal emphysema in the visualized lung bases. -Referred to GI for colonoscopy and further evaluation -already in care Biceps rupture, proximal, right, initial encounter Right arm/shoulder XR 2021: Mild degenerative changes glenohumeral joint. No visible acute fracture, dislocation or subluxation seen. There is no visible fracture involving the right humerus. There is a soft tissue bulge along the distal right arm question biceps rupture versus mass. -referred to ortho before and seen before by ortho, but not Qx was done, refusing further referral COPD -saw academic support director-Dr Wick 08/2024 Suboptimal control as patient intermittently uses his Anoro.Patient has been encouraged to use his Anoro consistently. Continue current regimen. , Results of sleep study reviewed, no evidence of underlying obstructive sleep apnea. -encouraged pt to use daily Anoro -placed today in office phone alarm and advise to put inh next tobed to use it daily at same time of day -continue care w academic support director Clubbing of fingers Noted clubbing of finger nails at previous exam. Pt is an active tobacco smoker. -CXR: 05/10/2023: minimal non specific biapical subpleural thickening -TTE 06/2023 - The left ventricular systolic function is normal. The calculated ejection fraction is61% by biplane method. No obvious valvular pathology seen on this study. -CT low dose chest 05/2024 lungs bilaterally symmetrically expanded. Moderate emphysematous changes are present with a mild saber-sheath trachea. Mild bronchial thickening is present without bronchiectasis.No suspicious pulmonary nodules. -Continue care w academic support director -advised smoking cessation Tobacco use Started 21 until now,stopped x 3 years before but again smoking 3 cig a day sometimes more on and off <----2--3 from 5 cigarettes a day . Smoking for 34 years PQT a year calc 6.8 -No recommendation for lung cancer screening -Pt interested in smoking cessation but when meet w staff refuse aids for smoking cessation -nicotine 7 mg patch px today w refilled before not using ,refuse lozanges or gums -tried before--refuse for now -will hold on px of chantix and bupropion w uncontrolled psych dx -advied to f w psychiatrist to start care Bipolar disorder Pt w hx of Bipolar dx. Per pt diagnosed ys ago, not on tx Pt w hypomania and depressive sx. PHQ9 - 8. Denies SI. - to evaluate patient today in office and for referral to psychiatrist as soon as possible -I discussed with patient about possibility to start low-dose antipsychotic but patient would like to hold for now. -Continue care with his therapist Tics Noted strong involuntary movements of head and neck patient states this is not new but has been worsening now that he is very stressed Neurological exam is abnormal but seems due to his chronic cervical radiculopathy -Brain MRI referred today for memory loss as well for these new finding on exam (tics) -psychiatric referral -seems emotional triggered Back pain Lower back pain described as spasms Normal neurologic exam at last visit and no complaints at this time -XR lumbar spine : Mild degenerative disc disease with small endplate osteophytes at L4 and L5. Disc space heights are maintained. Few nonspecific calcifications in the left hemiabdomen, possibly inspissated fecal material within diverticuli, when compared to prior. Trace asymmetric sclerosisof the left sacroiliac joint which may reflect sequelae of prior sacroiliitis or osteoarthritis. 11/14/2023 CRP ,ESR neg -Advise warm compresses -Tylenol PRN -lidocaine patches HLD 11/14/2023 CBC wnl,chem wnl,LDL 126<----128 , total ch 199, HDL 61, -ASCVD: 10.3% (rec for moderate statins) -continue lipitor 10 mg daily -repeat fasting lipids and chem -will hold on ASA w ongoing RBPR Neuropathy /neck pain /disc herniation w radiculoapthy and mild central stenosis Reports on and off numbness sensation and tingling in both arms described to start in his arms and radiated to his forearms ,denies in hands but states if trying to grab something is difficult for him and things can fall from his hands ,also describes having neck pain for the past 2 months,denies recent neck trauma -normal neuro exam today -MR cervical spine w/o contrast 12/13/2023: At C5-C6 there is a broad-based posterior disc protrusion with mild central stenosis. There is moderate bilateral foraminal narrowing. At C6-C7 there is a broad-based posterior disc osteophyte complex with mild central stenosis. There is moderate bilateral foraminal narrowing. At C4-C5 there is a soft posterior disc protrusion without cord compression or central stenosis. There is mild to moderate bilateral foraminal narrowing. -EMG 12/14/2023 : Bilateral median and ulnar motor and sensory studies were performed. Bilateral radial sensory studies were performed and paraspinal muscles were tested with a needle. 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 11/14/2023 CBC wnl,chem wnl,CRP ,ESR neg ,CCP neg ,RF neg,TSH wnl,immunofixation wnl, no monoclonal pattern .SPEP and UPEP neg,vit B12/folate wnl -f w pain management -last seen 02/2024 Technically we can try to perform interlaminar epidural steroid injections however patient is not very eager to go for this procedure at least at this time. will increase the dose of his gabapentin. It will be 600 mg b.i.d.. -had right CTS surgery in 2023 w improvement of symptoms Pain in left thum ,tingling and numbness , weaker grabing things-symptoms described today in left had are not new but seems worsening -seen already by [facility] 01/2024 referred from there for Right CTS referred for plastic surgeon and for cervical radiculopathy to consider ACDF C5-C6 and C6-C7 - gave info to call NS today pt will inform us if need another referral given lost care -gabapetin 600 mg BID -tylenol prn -F already w PM -refuse for now inj -may need to consider lumbar MRI if no improvement Poor memory -MOCA 26/30 - normal cognitive status. In 08/20/2024 -referred today for Brain MRI today and advised to have labs ordered at last apt Review of Systems -left hand pain-numbness/tingling -worsening anxiety Objective BP 139/89 (BP Location: Left arm, Patient Position: Sitting, BP Cuff Size: Adult) Pulse 90 Temp97.6 ??F (36.4 ??C) (Temporal) Resp 20 Ht 5' 4.5 (1.638 m) Wt 141 lb 12.8 oz (64.3 kg) SpO2 97% BMI 23.96 kg/m?? Physical Exam Strength is normal in upper extremities, as well as sensory, no joint deformities in hands, no swelling, no erythema no increase in skin temperature. Assessment/Plan Problem List Items Addressed This Visit Tobacco use Health care maintenance Bipolar disorder ([facility]/HCC) Neuropathy COPD (chronic obstructive pulmonary disease) (CMS/HCC) Facial tic Other Visit Diagnoses Memory loss - Primary Relevant Orders MR Brain w/o Contrast documented in this encounter Plan of Treatment Upcoming Encounters Date Type Department Care Team (Late st Contact Info) Description 02/25/2025 9:30 AM EDT Clinical Support [facility] MEDICINE [address] [place] [phone] 04/10/2025 9:30 AM EDT Office Visit [facility] MEDICINE [address] [place] [phone] Gianna Rodríguez MD [address] [place] [phone] Scheduled Orders Name Type Priority Associated Diagnoses Orde r Schedule MR Brain w/o Contrast Imaging Routine Memory loss Expected: 02/13/2025, Expires: 02/13/2026 documented as of this encounter Goals Goal Patient Goal Type Associated Problems Recent Progress Patient-Stated? Author Reduce tobacco use (cigarettes, smokeless, etc) Tobacco Use Tobacco use On track( 023 11:05 AM EST) No Parvez Marsh, ShashiD Note: Down to 3 cigarettes daily. documented as of this encounter Visit Diagnoses Diagnosis Memory loss- Primary Bipolar affective disorder, current episode mixed, current episode severity unspecified (CMS/HCC) Simple chronic bronchitis (CMS/HCC) Simple chronic bronchitis Health care maintenance Tobacco use Neuropathy Mononeuritis of unspecified site Facial tic documented in this encounter Additional Health Concerns Assessment Noted Time PHQ-9 Depression Total Score: 0 02/14/20 25 10:58 AM EDT documented as of this encounter Care Teams Vehicle Service Agent Relationship Specialty Start Date End Date Gianna Rodríguez MD [address] [place] [phone] PCP - General Internal Medicine 05/04/23 Maribeth Pierce Student Services CoordinatorHydraulic Auto Jack Mechanic 12/11/24 documented as of this encounter
--- OUTSIDE RECORDS SUMMARY | 2025-02-15 09:53 | XMS_ITS | Encounter Summary ---
Author Organization [employer] Address [address] [facility] [facility] [address] [place] [address] Care Team Providers Care Distribution Dispatcher Name Role Phone Gianna Rodríguez MD Primary Care Pro vider Encounter Details Date Type Department Care Team ([facility] st Contact Info) Description 10/21/2024 Orders Only [facility] MEDICINE [address] [place] [address] Provider, MD Jacoby Social History Tobacco Use Types Packs/Day Years Used Date Smoking Tobacco: Some Days Cigarettes 0.2 39.3 Started: 1985 Passive Smoke Exposure: Current Comments:Started 21 until no w,stopped x 3 years before but again smoking [...] Answer Date Recorded Patient Health Questionnaire-9 Score 9 08/22/2024 Patient Health Questionnaire-9 Score 9 08/22/2024 Last PHQ-9: Questionnaire Data Not on file 1 Housing Stability Answer Date Recorded What is [...] from getting things needed for daily living? Yes, it has kept me from medical appointments or getting medications. 08/05/2024 Utilities Answer Date Recorded In the past 12 months, has t he electric, gas, oil or water company threatened to shut off services in your home? No 07/12/2024 Depression Answer Date Recorded Patient Health Questionnaire-2 Score 4 08/22/2024 Internet Access Answer Date Recorded Internet Access Q1 Yes 07/12/2024 Internet Access Q2 Not on file 07/12/2024 Sex and Gender Information Value Date Recorded Sex Assigned at Male 08/29/2022 10:40 AM EDT Legal Sex Male 10:40 AM EDT Gender Identity Male 08/29/2022 10:40 AM EDT Sexual Orientation Straight 05/04/2023 2: 06 PM EDT documented as of this encounter Plan of Treatment Upcoming Encounters Date Type Department Care Team (Late st Contact Info) Description 02/25/2025 9:30 AM EDT Clinical Support [facility] MEDICINE [address] [place] [phone] 04/10/2025 9:30 AM EDT Office Visit [facility] MEDICINE [address] [place] [phone] Gianna Rodríguez MD [address] [place] [phone] documented as of this encounter Goals Goal Patient Goal Type Associated Problems Recent Progress Patient-Stated? Author Reduce tobacco use (cigarettes, smokeless, etc) Tobacco Use Tobacco use On track( 023 11:05 AM EST) No Parvez Marsh, PharmD Note: Down to 3 cigarettes daily. documented as of this encounter Procedures Procedure Name Priority Date/Time Associated Diagnosis Comments COLONOSCOPY Routine 08/06/2024 3:46 PM EDT documented in this encounter Results * Hm Colonoscopy (08/06/2024 3:46 PM EDT) us Historical Provider HEALTH MAINTENANCE Final Result documented in this encounter Visit Diagnoses Not on filedocumented in this encounter Additional Health Concerns Assessment Noted Time PHQ-9 Depression Total Score: 9 08/22/20 24 9:35 AM EDT documented as of this encounter Care Teams Distribution Dispatcher Relationship Specialty Start Date End Date Gianna Rodríguez MD [address] [place] [phone] PCP - General Internal Medicine 05/04/23 Maribeth Pierce Field Crop I FarmworkerClinical Systems Analyst 12/11/24 documented as of this encounter
--- OUTSIDE RECORDS SUMMARY | 2025-02-15 09:53 | XMS_ITS | Encounter Summary ---
Author Organization [employer] Address [address] [facility] [place] [address] Care Team Providers Care Carbon Electrodes Supervisor Name Role Phone Gianan Rodríguez MD Primary Care Pro vider Encounter Details Date Type Department Care Team (Latest Contact Info) Description 02/13/2025 Travel Social History Tobacco Use Types Packs/Day Years [...] Description 02/25/2025 9:30 AM EDT Clinical Support [facility] MEDICINE [address] [place] [phone] 04/10/2025 9:30 AM EDT Office Visit [facility] MEDICINE [address] [place] [address] Gianna Rodríguez MD [address] [place] [phone] documented as of this encounter Goals Goal [...] documented as of this encounter Care Teams Carbon Electrodes Supervisor Relationship Specialty Start Date End Date Gianna Rodríguez MD [address] [place] [phone] PCP - General Internal Medicine 05/04/23 Maribeth Pierce Model Builder DisplayPiping Blocker 12/11/24 documented as of this encounter
== END 2025-02-15 09:51 | disposition home or self-care (01) ==
LOC: HO.MRI 09:50
PROVIDERS: PCP Student in an Organized Health Care Education/Training Program; Visit Provider Student in an Organized Health Care Education/Training Program
DX: R41.3 Other amnesia (principal)
CPT/HCPCS: 70551

== ENCOUNTER → 2025-02-15 09:56 | Outpatient (BNV) | payer MEDICAID, SELFPAY | PROVIDERS: PCP Student in an Organized Health Care Education/Training Program; Visit Provider Radiology Diagnostic Radiology | DX: R41.3 Other amnesia (principal) | CPT/HCPCS: 70551 ==

== ENCOUNTER 2025-06-24 07:46 | Outpatient (REF) | payer MEDICAID, SELFPAY ==
--- NOTE | ~2025-06-24 | CT_ITS ---
EXAMINATION: CT LOW-DOSE SCREENING CHEST WITHOUT CONTRAST CLINICAL INFORMATION: 60-year-old male, current smoker, 40 pack years, lung cancer screening. COMPARISON: 05/30/2024, 06/09/2023. TECHNIQUE: Multidetector volumetric CT imaging of the chest is performed on a Siemens SOMATOM Definition scanner without contrast using low dose technique. Additional 2D coronal and sagittal reformatted images and axial 3D maximum intensity projection (MIP) images are generated on the CT workstation. This CT examination was performed using dose optimization techniques as appropriate, variously including the following: *Automated exposure control *Adjustment of mA and/or kV according to patient size (this includes techniques or standardized protocols for targeted exams where dose is matched to indication/reason for exam; i.e. extremities or head) *Use of iterative reconstruction technique FINDINGS: PULMONARY NODULES: There are a few tiny scattered 2 mm calcified granuloma. These are unchanged. No new or enlarging pulmonary nodule present. LUNGS: There is mild to moderate paraseptal and centrilobular emphysema with upper lobe predominance. No airspace disease identified. No interstitial disease identified. Small airways are normal. Central airways are patent. There is a saber-sheath trachea. No effusion or pneumothorax. MEDIASTINUM: Normal thyroid. Aorta is normal in caliber and course. Main pulmonary artery is normal in size. No abnormal lymph nodes or masses in the mediastinum. No esophageal abnormality. Heart size normal. There is no pericardial effusion. CORONARY ARTERY CALCIFICATION: None visualized on this study. CHEST WALL/AXILLA: Normal. No masses or abnormal lymph nodes. UPPER ABDOMEN: Imaged upper abdominal contents appear normal allowing for low-dose noncontrast technique. OSSEOUS STRUCTURES: No suspicious lytic or blastic bone lesions. CT/CT lung screening IMPRESSION: 1. No new or enlarging pulmonary nodules. 2. Stable emphysematous changes. No active lung disease. ASSESSMENT: 1. Lung-RADS Category 2: Benign appearance or behavior of nodules. 2. Lung-RADS Category S: None. RECOMMENDATION: Continued routine annual low-dose CT lung screening in 1 year is recommended. An order for CT CHEST LOW DOSE CANCER SCREENING ([id number]) can be placed. Electronically signed by: Kenji Hernandez MD 06/24/2025 08:32 AM EDT
--- OUTSIDE RECORDS SUMMARY | 2025-06-24 07:51 | XMS_ITS | Encounter Summary ---
Author Organization [employer] Address [address] [place] [address] [address] [address] Care Team Providers Care Plastic Mixer Name Role Phone Keturah Russell Primary Care Provider [phone] Gianna Rodríguez MD Primary Care Pro vider Silva Sanz Unavailable Reason for Visit * Reason Onset Date Comments New patient Appt 03/21/2023 Encounter Details Date Type Department Care Team (Late st Contact Info) Description 03/21/2023 Telephone [facility] MEDICINE [address] [place] [address] Keturah Russell FNP [address] [place], [place] [phone] New patient Appt Social History Tobacco Use [...] PAR Shyanne Lilly called pt to offer REPAIR ELECTRIC MOTOR ASSEMBLER appt. Pt demographics and insurance information were verified. Pt reports no medical conditions. Pt is not taking any medication at this time. Pt given REPAIR ELECTRIC MOTOR ASSEMBLER appt with on PCP Dr. Keturah Russell @ 1:45 pm. Pt will be sent appt reminder card and medical release form and agrees to complete and to return to medical records prior to REPAIR ELECTRIC MOTOR ASSEMBLER appt. documented in this encounter Plan of Treatment Upcoming Encounters Date Type Department Care Team (Late st Contact Info) Description 07/24/2025 9:00 AM EDT Office Visit [facility] MEDICINE [address] [place], [place] [phone] Gianna Rodríguez MD [address] [place], [place] [phone] documented as of this encounter Visit Diagnoses Not on filedocumented in this encounter Care Teams Plastic Mixer Relationship Specialty Start Date End Date Keturah Russell FNP [address] [place] [phone] PCP - General Family Medicine 03/21/23 03/29/23 Gianna Rodríguez MD [address] [place] [address] [phone] PCP - General Internal Medicine 05/04/23 Silva Sanz 05/14/25 Maribeth Pierce Manager TherapyRecovery Auditor 12/11/24 documented as of this encounter
--- OUTSIDE RECORDS SUMMARY | 2025-06-24 07:51 | XMS_ITS | Encounter Summary ---
Author Organization [employer] Address [address] [place] [address] [place] [address] Care Team Providers Care Tank Furnace Operator Name Role Phone Gianna Rodríguez MD Primary Care Pro vider Silva Sanz Unavailable Reason for Visit * Reason Onset Date Comments requesting a call back 05/09/2025 Encounter Details Date Type Department Care Team ([facility] st Contact Info) Description 05/09/2025 Telephone [facility] MEDICINE [address] [place] [address] Gianna Rodríguez MD [address] [place], [place] [phone] requesting a call back Social History Tobacco Use Types Packs/Day Years Used Date Smoking Tobacco: Some Days Cigarettes 0.2 39.6 Started: 1985 Passive Smoke Exposure: Current Comments:Started [...] encounter Miscellaneous Notes * Telephone Encounter - Patricia Em RN - 05/12/2025 1:52 PM EDT Returned call to [facility]. She explained this is outpatient therapy primarilyfor depression and anxiety. She stated the pt is taking his seroquel and has been doing therapy with her several times, stated he has previously disassociated when talking about his daughter and her boyfriend (stated his eyes dilated and he seemed unfocused but continued to make normal conversation). She states she will continue to see the pt and feels he has coping mechanisms, is hoping PCP can assist with case management services (for ex to help pt sign up for social security assistance). She states that she believes PCP placed referral for psychiatrist however sending FYI that pt is declining to see psychiatrist and does not wish to take pysch meds. Advised her will pass the message along to PCP. * Telephone Encounter - Vaughn Newman - 05/09/2025 10:36 AM EDT Tc [facility] in requesting to speak with PCP or Nurse in regards to ptsrequest. Pt wants conformation that he is still in out patient therapy. Pt has a question in regards to his mental health. Justine reported that there is no medication prescriber in their facility. Contact justine at [phone] documented in this encounter Plan of Treatment Upcoming Encounters Date Type Department Care Team (Late st Contact Info) Description 07/24/2025 9:00 AM EDT Office Visit [facility] MEDICINE [address] [place] [address] Gianna Rodríguez MD [address] [place] [address] documented as of this encounter Goals Goal [...] Time PHQ-9 Depression Total Score: 0 02/14/20 10:58 AM EDT documented as of this encounter Care Teams Tank Furnace Operator Relationship Specialty Start Date End Date Gianna Rodríguez MD [address] [place] [address] PCP - General Internal Medicine 05/04/23 Silva Sanz 05/14/25 Maribeth Pierce Link TrainerBond Analyst 12/11/24 documented as of this encounter
--- OUTSIDE RECORDS SUMMARY | 2025-06-24 07:51 | XMS_ITS | Encounter Summary ---
Author Organization [employer] Address [address] [address] [address] [place] [address] Care Team Providers Care Human Geography Instructor Name Role Phone Gianna Rodríguez MD Primary Care Pro vider Silva Sanz Unavailable Encounter Details Date Type Department Care Team (Late st Contact Info) Description 10/21/2024 Orders Only [facility] MEDICINE [address] [place] [address] Provider, MD Jacoby Social History Tobacco Use [...] Description 07/24/2025 9:00 AM EDT Office Visit [facility] MEDICINE [address] [place] [address] [phone] Gianna Rodríguez MD [address] [place], [place] [phone] documented as of this encounter Goals Goal Patient Goal Type Associated Problems Recent Progress Patient-Stated? Author Reduce tobacco use (cigarettes, smokeless, etc) Tobacco Use Tobacco use On track( 023 11:05 AM EST) No Parvez Marsh, PharmD Note: Down to 3 cigarettes daily. documented as of this encounter Procedures Procedure Name Priority Date/Time Associated Diagnosis Comments HM COLONOSCOPY Routine 08/06/2024 3:46 PM EDT documented in this encounter Results * Hm Colonoscopy (08/06/2024 3:46 PM EDT) us Historical Provider HEALTH MAINTENANCE Final Result documented in this encounter Visit Diagnoses Not on filedocumented in this encounter Additional Health Concerns Assessment Noted Time PHQ-9 Depression Total Score: 9 08/22/20 24 9:35 AM EDT documented as of this encounter Care Teams Human Geography Instructor Relationship Specialty Start Date End Date Gianna Rodríguez MD [address] [place] [address] PCP - General Internal Medicine 05/04/23 Silva Sanz 05/14/25 Maribeth Pierce Supercharger MechanicLube Attendant 12/11/24 documented as of this encounter
--- OUTSIDE RECORDS SUMMARY | 2025-06-24 07:51 | XMS_ITS ---
Author Organization [employer] Address [address] [place] [address] Care Team Providers Care Jewel Sorter Name Role Phone Gianna Rodríguez MD Primary Care Pro vider Silva Sanz [facility] Complex Status:Enrolled (Active) Start date:05/14/2025 Enrollment date:05/16/2025 Enrollment reason:Referred by provider Overview SDOH Referral- Please can you help pt sign up for social security assistance -thanks Case Team Name Relationship Phone Silva Sanz(Responsible Staff) [phone] Continued Care and Services Coordination
--- OUTSIDE RECORDS SUMMARY | 2025-06-24 07:51 | XMS_ITS | Clinical Summary ---
Author Organization [employer] Address [address] [place] [address] 7 [place] [address] Care Team Providers Care Camp Housekeeper Name Role Phone Gianna Rodríguez MD Primary Care Pro vider Silva Sanz Unavailable Allergies No known active allergies Medications * This document contains information received from the source organization and may not represent a complete record from that organization. Umeclidinium-Irwin anterol 62.5-25 MCG/ACT aerosol powder Inhale. Active lidocaine (Lidoderm) 5 % patch Apply 1 patch topically Once per day. Remove & discard patch within 12 hours or as directed by . 30 patch 1 4 Active atorvastatin (Lipitor) 10 MG tablet TAKE 1 TABLET BY MOUTH EVERY DAY 90 tablet 1 5 Active gabapentin (Neurontin) 600 MG tabletIndication s:Neuropathy Take 1 tablet (600 mg) by mouth 2 times daily. 60 tablet 2 5 Active QUEtiapine (SEROquel) 25 MG tabletIndication s:Bipolar affective disorder, current episode mixed, current episode severity unspecified (CMS/HCC) Take 1 tablet (25 mg) by mouth at bedtime. 90 tablet 5 07/09/20 25 Active Active Problems Problem Noted Date Diagnosed [...] mediastinal or axillary lymphadenopathy seen. -referred to java portal developer for chest CT findings - started already [...] actively made efforts to quit smoking. At [facility], was smoking about 10 cigarettes daily. [...] (08/22/2024 10:15 AM EDT): During [facility] Consult Dilan presenting with Fear of abandonment, Pattern of [...] gave today to pt printed info on [facility] to call. - Pt refuses psychiatrist referral at this time. - Referred already to case work aide due to job insecurity--- pt reports having [...] referrals for psych med management. Information for [facility] [place] was provided, as well as ways to connect with dept at [facility]. Assessment & Plan (06/04/2023 5:10 PM EDT): Pt w hx of Bipolar dx. Per pt diagnosed ys ago, not on tx Pt w hypomania and depressive sx. PHQ9 - 8. Denies SI. - evaluated pt at previous visit and to refer pt for outpatient psychotherapy, has not received apt yet. I gave today to pt printed info on [facility] to call. - Pt refuses psychiatrist referral at this time. - Referred already to case work aide due to job insecurity Assessment & Plan (05/04/2023 9:33 PM EDT): Pt w hx of Bipolar dx. Per pt diagnosed ys ago, not on tx Pt w hypomania and depressive sx. PHQ9 - 8. Denies SI. - evaluated pt today and to refer pt for outpatient psychotherapy - Pt refuses psychiatrist referral at this time. - Referred today to case work aide due to job insecurity Abdominal pain 05/04/2023 [...] d ago - already requested record to Liza [facility]--- I will call pt if any [...] lung on CXR 06/04/2023 0 06/04/2023 Encounters Date Type Department Care Team Description 06/11/2025 Patient Outreach [address] [address] Gianna Rodríguez MD Care Coordination ([facility] f/u) 06/03/2025 Patient Outreach [address] [address] Gianna Rodríguez MD Care Coordination ([facility] f/u) 05/23/2025 Patient Outreach [address] [address] Gianna Rodríguez MD Care Coordination ([facility] f/u) 05/16/2025 Patient Outreach [address] [address] Gianna Rodríguez MD Care Coordination ([facility]) 05/16/2025 Patient Outreach [address] [address] Gianna Rodríguez MD Care Coordination (W chart review) 05/14/2025 Patient Outreach [facility] MEDICINE [address] [place] [address] Gianna Rodríguez MD 05/12/2025 Orders Only [facility] [place] [address] Gianna Rodríguez MD Poor memory (Primary Dx); Bipolar affective disorder, current episode mixed, current episode severity unspecified (CMS/HCC) 05/09/2025 Telephone [facility] MEDICINE [address] [place] [address] Gianna Rodríguez MD requesting a call back 04/23/[address] [address] Gianna Rodríguez MD recall 04/18/[address] [address] Gianna Rodríguez MD recall 04/10/2025 9:30 AM EDT Office Visit [address] [place] [address] Gianna Rodríguez MD Bipolar affective disorder, current episode mixed, current episode severity unspecified (CMS/HCC) (Primary Dx); Neuropathy; Health care maintenance; Tobacco use 04/10/2025 Travel 04/09/2025 Telephone [facility] [place] [address] Reynaldo Camarillo [place] Chart Prep 03/25/[address] [address] Gianna Alanis MD from Last 3 Months Immunizations Immunization Administration Dates Next Due Pneumococcal Conjugate PCV 20 05/04/2023 Tdap 05/04/2023 Family History Medical History Relation Name Comments Ulcerative colitis Mother Relation Name Status Comments Mother Social History Tobacco Use Types Packs/Day Years Used Date Smoking Tobacco: Some Days Cigarettes 0.2 39.6 Started: 1985 Passive Smoke Exposure: Current Tobacco [...] your housing situation today? I have danae re 08/05/[address] you li [...] Sign Reading Time Taken Comments Blood Pressure 112/70 04/10/2025 9:33 AM EDT Pulse 82 04/10/2025 9:33 AM EDT Temperature 36.2 C (97.2 F) 04/10/2025 9:33 AM EDT Respiratory Rate 16 04/10/2025 9:33 AM EDT Oxygen Saturation 97% 02/13/2025 10:55 AM EDT Inhaled Oxygen Concentration - - Weight 62.3 kg (137 lb 6 oz) 04/10/2025 9:33 AM EDT Height 165.1 cm (5' 5 ) 04/10/2025 9:33 AM EDT Body Mass Index 22.86 04/10/2025 9:33 AM EDT Plan of Treatment Upcoming Encounters Date Type Department Care Team (Late st Contact Info) Description 07/24/2025 9:00 AM EDT Office Visit [facility] MEDICINE [address] [place], [place] [phone] Gianna Rodríguez MD [address] [place], [place] [phone] Health Maintenance Due Date Last Done Comments CT Colonography 1967 FIT DNA/Cologuard 1967 FIT 1967 FOBT 1967 HIV Screening 1967 Sigmoidoscopy 1967 Hepatitis C Screening 1985 Hepatitis B Vaccines (1 of 3 - 19+ 3-dose series) 1986 Zoster Vaccines (1 of 2) 2017 COVID-19 Vaccine ( - 2023-2 5 season) 2024 Influenza Vaccine (#1) 2025 SDOH Screening 02/06/2026 02/06/2025 Alcohol/Substance Use Screening 02/13/2026 02/13/2025 Depression Screening 02/13/2026 02/13/2025, 02/13/2025 Disability Screening 02/18/2026 02/18/2025 Tobacco Screening 04/10/2026 04/10/2025 Colonoscopy 08/06/2027 08/06/2024 Colorectal Cancer Screening 08/06/2027 [...] patient's age to complete this topic Meningococcal B Vaccine Aged Out No l onger eligible based on patient's age to complete [...] PharmD Note: Down to 3 cigarettes daily. Procedures [...] 10:51 AM EST) Triglycerides 63 <150 mg/dL [facility] Comment:Desirable Triglyceri de: less than 150 mg/dLBorderline High Triglyceride 150-199 mg/dLHigh Triglyceride: 200-499 mg/dLVery High Triglyceride: greater than or equal to 5OO mg/dL Cholesterol 199 <200 mg/dL [facility] Comment:Desirable Cholestero l: less than 200 mg/dLBorderline High Cholesterol: 200-239 mg/dLHigh Cholesterol: greater than 239 mg/dL LDL Cholesterol Calculated 126(H) <100 mg/dL [facility] Comment:Desirable LDL: less than 100 mg/dLNear Optimal/Above Optimal LDL: 110- 129 mg/dLBorderline High LDL: 130-159 mg/dLHigh LDL: 160-189 mg/dLVery High LDL: greater than or equal to 190 mg/dL HDL Cholesterol 61 >40 mg/dL [facility] Comment:Desirable HDL: great er than 40 mg/dL Note: This HDL assay may give artificially low results in patients with liver disease. Blood Venous blood specimen / Unknown 11/14/2023 10:51 AM EST 11/14/2023 11:24 AM EST Gianna Amado MD LAB BLOOD ORDERAB LES Final Result [facility] [address] [place] [address] [phone] from Last 3 Months or Most Recently Relevant to Health Maintenance Insurance [facility] [address] [place] [address] [place] [address] Care Teams Camp Housekeeper Relationship Specialty Start Date End Date Gianna Rodríguez MD [address] [place] [address] PCP - General Internal Medicine 05/04/23 Silva Sanz 05/14/25 Maribeth Pierce Dermatology Physician AssistantCollar Trimmer 12/11/24
--- OUTSIDE RECORDS SUMMARY | 2025-06-24 07:51 | XMS_ITS | Encounter Summary ---
Author Organization [employer] Address [address] [place] [address] 7[place] [address] Care Team Providers Care [employer] Solutions Workflow Consultant Name Role Phone Gianna Rodríguez MD Primary Care Pro vider Silva Sanz Unavailable Reason for Visit * Reason Comments Med Refill Encounter Details Date Type Department Care Team ([facility] st Contact Info) Description 03/23/2025 Refill [facility] MEDICINE [address] [place] [address] Gianna Rodríguez MD [address] [place], [place] [phone] Social History Tobacco Use Types Packs/Day Years [...] Description 07/24/2025 9:00 AM EDT Office Visit [facility] MEDICINE [address] [place] [address] Gianna Rodríguez MD [address] [place] [address] documented as of this encounter Goals Goal Patient Goal Type Associated Problems Recent Progress Patient-Stated? Author Reduce tobacco use (cigarettes, smokeless, etc) Tobacco Use Tobacco use On track( 023 11:05 AM EST) Parvez Duarte, PharmD Note: Down to 3 cigarettes daily. documented as of this encounter Visit Diagnoses Not on filedocumented in this encounter Additional Health Concerns Assessment Noted Time PHQ-9 Depression Total Score: 0 02/14/20 10:58 AM EDT documented as of this encounter Care Teams Senior Solutions Workflow Consultant Relationship Specialty Start Date End Date Gianna Rodríguez MD [address] [place] [address] PCP - General Internal Medicine 05/04/23 Silva Sanz 05/14/25 Maribeth Pierce MoversAgricultural Mechanic 12/11/24 documented as of this encounter
== END 2025-06-24 07:47 | disposition home or self-care (01) ==
LOC: HO.CT 07:46
PROVIDERS: PCP Student in an Organized Health Care Education/Training Program; Visit Provider Internal Medicine Pulmonary Disease
DX: Z12.2 Encounter for screening for malignant neoplasm of respiratory organs (principal); Z87.891 Personal history of nicotine dependence
CPT/HCPCS: 71271

== ENCOUNTER → 2025-06-24 07:48 | Outpatient (BNV) | payer MEDICAID, SELFPAY | PROVIDERS: PCP Student in an Organized Health Care Education/Training Program; Visit Provider Radiology Diagnostic Radiology | DX: F17.210 Nicotine dependence, cigarettes, uncomplicated (principal) | CPT/HCPCS: 71271 ==

== ENCOUNTER 2025-07-03 10:29 | Outpatient (REF) | payer MEDICAID, SELFPAY ==
--- OUTSIDE RECORDS SUMMARY | 2025-07-03 11:50 | XMS_ITS | Encounter Summary ---
Author Organization [employer] Address [address] [place] [address] [place] [address] Care Team Providers Care Personal Security Specialist Name Role Phone Gianna Rodríguez MD Primary Care Pro vider Silva Sanz Unavailable Reason for Visit * Reason Onset Date Comments requesting a call back 05/09/2025 Encounter Details Date Type Department Care Team ([facility] st Contact Info) Description 05/09/2025 Telephone [facility] MEDICINE [address] [place] [address] Gianna Rodríguez MD 230 [place], [place] [phone] requesting a call back Social History Tobacco Use Types Packs/Day Years Used Date Smoking Tobacco: Some Days Cigarettes 0.2 39.7 Started: 1985 Passive Smoke Exposure: Current Comments:Started [...] 1:52 PM EDT Returned call to [facility]. She explained this is outpatient therapy primarilyfor [...] - 05/09/2025 10:36 AM EDT Tc from [facility] with [facility] in requesting to speak with PCP or Nurse in regards to ptsrequest. Pt wants conformation that he is still in out patient therapy. Pt has a question in regards to his mental health. Justine reported that there is no medication prescriber in their facility. Contact justine at [phone] documented in this encounter Plan of Treatment Upcoming Encounters Date Type Department Care Team (Late st Contact Info) Description 07/24/2025 9:00 AM EDT Office Visit [facility] MEDICINE [address] [place] [address] Gianna Rodríguez MD [address] [place] [address] documented as of this encounter Goals Goal [...] documented as of this encounter Care Teams Personal Security Specialist Relationship Specialty Start Date End Date Gianna Rodríguez MD [address] [place] [address] PCP - General Internal Medicine 05/04/23 Silva Sanz 05/14/25 Maribeth Pierce Steaming Machine OperatorMetal Sprayer Machined Parts 12/11/24 documented as of this encounter
--- OUTSIDE RECORDS SUMMARY | 2025-07-03 11:50 | XMS_ITS | Encounter Summary ---
Author Organization [employer] Address [address] [place] [address] 7[place] [address] Care Team Providers Care Track Layer Name Role Phone Gianna Rodríguez MD Primary Care Pro vider Silva Sanz Unavailable Reason for Visit * Reason Comments Med Refill Encounter Details Date Type Department Care Team ([facility] st Contact Info) Description 03/23/2025 Refill [facility] MEDICINE [address] [place] [address] Gianna Rodríguez MD [address] [place], [place] [phone] Social History Tobacco Use Types Packs/Day Years [...] Description 07/24/2025 9:00 AM EDT Office Visit [facility] MEDICINE [address] [place] [address] Gianna Rodríguez MD [address] [place] [address] documented as of this encounter Goals Goal [...] documented as of this encounter Care Teams Track Layer Relationship Specialty Start Date End Date Gianna Rodríguez MD [address] [place] [address] PCP - General Internal Medicine 05/04/23 Silva Sanz 05/14/25 Maribeth Pierce Mobile Device EngineerKosher Butcher 12/11/24 documented as of this encounter
--- OUTSIDE RECORDS SUMMARY | 2025-07-03 11:50 | XMS_ITS | Encounter Summary ---
Author Organization [employer] Address [address] [place] [address], [place] [address] Care Team Providers Care Producer Director Name Role Phone Keturah Russell Primary Care Provider [phone] Gianna Rodríguez MD Primary Care Pro vider Silva Sanz Unavailable Reason for Visit * Reason Onset Date Comments New patient Appt 03/21/2023 Encounter Details Date Type Department Care Team (Late st Contact Info) Description 03/21/2023 Telephone [facility] MEDICINE [address] [place] [address] Keturah Russell FNP [address] [place], [place] [phone] New patient Appt Social History Tobacco Use [...] PAR Shyanne Lilly called pt to offer L[facility] USE PLANNER appt. Pt demographics and insurance information were verified. Pt reports no medical conditions. Pt is not taking any medication at this time. Pt given [facility] USE PLANNER appt with on PCP Dr. Keturah Russell @ 1:45 pm. Pt will be sent appt reminder card and medical release form and agrees to complete and to return to medical records prior to LAND USE PLANNER appt. documented in this encounter Plan of Treatment Upcoming Encounters Date Type Department Care Team (Late st Contact Info) Description 07/24/2025 9:00 AM EDT Office Visit [facility] MEDICINE [address] [place], [place] [phone] Gianna Rodríguez MD [address] [place], [place] [phone] documented as of this encounter Visit Diagnoses Not on filedocumented in this encounter Care Teams Producer Director Relationship Specialty Start Date End Date Keturah Russell FNP [address] [place] [address] [phone] PCP - General Family Medicine 03/21/23 03/29/23 Gianna Rodríguez MD [address] [place] [address] [phone] PCP - General Internal Medicine 05/04/23 Silva Sanz 05/14/25 Maribeth Pierce Benzene WasherAirframe Design Engineer 12/11/24 documented as of this encounter
--- OUTSIDE RECORDS SUMMARY | 2025-07-03 11:50 | XMS_ITS ---
Author Organization [employer] Address [address] [place] [address] Care Team Providers Care Bleaching Supervisor Name Role Phone Gianna Rodríguez MD Primary Care Pro vider Silva Sanz [facility] Complex Status:Enrolled (Active) Start date:05/14/2025 Enrollment date:05/16/2025 Enrollment reason:Referred by provider Overview SDOH Referral- Please can you help pt sign up for social security assistance -thanks Case Team Name Relationship Phone Silva Sanz(Responsible Staff) [phone] Continued Care and Services Coordination
--- OUTSIDE RECORDS SUMMARY | 2025-07-03 11:50 | XMS_ITS | Encounter Summary ---
Author Organization [employer] Address [address] [place] [address] Care Team Providers Care Railroad Detective Name Role Phone Gianna Rodríguez MD Primary Care Pro vider Silva Sanz Unavailable Encounter Details Date Type Department Care Team (Late st Contact Info) Description 10/21/[address] [facility] [address] [place] [address] Provider, MD Jacoby Social History Tobacco Use [...] Description 07/24/2025 9:00 AM EDT Office Visit [facility] [address] [place] [address] [phone] Gianna Rodríguez MD [address] [place], [place] [phone] documented as of this encounter Goals Goal [...] documented as of this encounter Care Teams Railroad Detective Relationship Specialty Start Date End Date Gianna Rodríguez MD [address] [place] [id number] PCP - General Internal Medicine 05/04/23 Silva Sanz 05/14/25 Maribeth Pierce StraightenerClinical Sales Consultant 12/11/24 documented as of this encounter
--- OUTSIDE RECORDS SUMMARY | 2025-07-03 11:50 | XMS_ITS | Clinical Summary ---
Author Organization [employer] Address [address] [place] [address] 7 [place] [address] Care Team Providers Care Coin Purse Framer Name Role Phone Gianna Rodríguez MD Primary [...] mediastinal or axillary lymphadenopathy seen. -referred to internship for chest CT findings - started already [...] actively made efforts to quit smoking. At [facility], was smoking about 10 cigarettes daily. Currently [...] to pt printed info on [facility] to call. - Pt refuses psychiatrist referral at this time. - Referred already to classification case manager due to job insecurity--- pt reports having [...] for psych med management. Information for [facility] was provided, as well as ways to connect with dept at [facility]. Assessment & Plan (06/04/2023 5:10 PM EDT): Pt w hx of Bipolar dx. Per pt diagnosed ys ago, not on tx Pt w hypomania and depressive sx. PHQ9 - 8. Denies SI. - evaluated pt at previous visit and to refer pt for outpatient psychotherapy, has not received apt yet. I gave today to pt printed info on [facility] to call. - Pt refuses psychiatrist referral at this time. - Referred already to classification case manager due to job insecurity Assessment & Plan (05/04/2023 9:33 PM EDT): Pt w hx of Bipolar dx. Per pt diagnosed ys ago, not on tx Pt w hypomania and depressive sx. PHQ9 - 8. Denies SI. - evaluated pt today and to refer pt for outpatient psychotherapy - Pt refuses psychiatrist referral at this time. - Referred today to classification case manager due to job insecurity Abdominal pain 05/04/2023 [...] Encounters Date Type Department Care Team Description 06/24/2025 Orders Only [facility] External Provider, [facility] 06/11/2025 Patient Outreach [address] [phone] Gianna Rodríguez MD Care Coordination ([facility] f/u) 06/03/2025 Patient Outreach [address] [address] Gianna Rodríguez MD Care Coordination ([facility] f/u) 05/23/2025 Patient Outreach [address] [address] Gianna Rodríguez MD Care Coordination ([facility] f/u) 05/16/2025 Patient Outreach [address] [address] Gianna Rodríguez MD Care Coordination ([facility]) 05/16/2025 Patient Outreach [address] [address] Gianna Rodríguez MD Care Coordination (W chart review) 05/14/2025 Patient Outreach [facility] [place] [address] Gianna Rodríguez MD 05/12/2025 Orders Only [facility] [place] [address] Gianna Rodríguez MD Poor memory (Primary Dx); Bipolar affective disorder, current episode mixed, current episode severity unspecified (CMS/HCC) 05/09/2025 Telephone [facility] [address] [place] [address] Gianna Rodríguez MD requesting a call back 04/23/[address] [address] Gianna Rodríguez MD recall 04/18/[address] [address] Gianna Rodríguez MD recall 04/10/2025 9:30 AM EDT Office Visit [address] [place] [address] Gianna Rodríguez MD Bipolar affective disorder, current episode mixed, current episode severity unspecified (CMS/HCC) (Primary Dx); Neuropathy; Health care maintenance; Tobacco use 04/10/2025 Travel 04/09/[address] [address] Reynaldo Camarillo [place] Chart Prep from Last 3 Months Immunizations Immunization Administration Dates Next Due Pneumococcal Conjugate PCV 20 05/04/2023 Tdap 05/04/2023 Family History Medical History Relation Name Comments Ulcerative colitis Mother Relation Name Status Comments Mother Social History Tobacco Use Types Packs/Day Years Used Date Smoking Tobacco: Some Days Cigarettes 0.2 39.7 Started: 1985 Passive Smoke Exposure: Current Tobacco [...] Description 07/24/2025 9:00 AM EDT Office Visit [facility] [address] [place], [place] [phone] Gianna Rodríguez MD [address] [place], [place] [phone] Health Maintenance Due Date Last Done Comments CT Colonography 1967 FIT DNA/Cologuard 1967 FIT 1967 FOBT 1967 HIV Screening 1965 Sigmoidoscopy 1967 Hepatitis C Screening 1985 Hepatitis B Vaccines (1 of 3 - 19+ 3-dose series) 1986 Zoster Vaccines (1 of 2) 2017 COVID-19 Vaccine ( - 2023-2 5 season) 2025 Influenza Vaccine (#1) 2025 SDOH Screening 02/06/2026 [...] ShashiD Note: Down to 3 cigarettes daily. Procedures Procedure Name Priority Date/Time Associated Diagnosis Comments LDCT LUNG SCREENING Routine 06/24/2025 7 :50 AM EDT HM COLONOSCOPY Routine 08/06/2024 3:46 PM EDT LIPID PANEL, STANDARD Routine 11/14/2023 10:51 AM EST Hyperlipidemia, unspecified hyperlipidemia type from Last 3 Months or Most Recently Relevant to Health Maintenance Results * CT Lung Screening Low dose (06/24/2025 7:50 AM EDT) Anatomical Region Laterality Modality Lung Computed Tomogra phy 06/24/2025 7:50 AM EDT Narrative 06/24/2025 8:36 AM EDT [address] [address] [address] Scan Report Signed Patient: Dilan Casper MR#: [id number] : 1965 Acct:[id number] Age/Sex: 60 / M ADM Date: 06/24/25 Loc: HO.CT Attending Dr: Maciej Wick MD Ordering Physician: Maciej Wick MD Date of Service: 06/24/25 Procedure(s): CT lung screening Accession Number(s): [id number] cc: Maciej Wick MD; Gianna Rodríguez MD Report Number: [id number]: Total DLP = 54.00 mGy-cm EXAMINATION: CT LOW-DOSE SCREENING CHEST WITHOUT CONTRAST CLINICAL INFORMATION: 60-year-old male, current smoker, 40 pack years, lung cancer screening. COMPARISON: 05/30/2024, 06/09/2023. TECHNIQUE: Multidetector volumetric CT imaging of the chest is performed on a Siemens SOMATOM Definition scanner without contrast using low dose technique. Additional 2D coronal and sagittal reformatted images and axial 3D maximum intensity projection (MIP) images are generated on the CT workstation. This CT examination was performed using dose optimization techniques as appropriate, variously including the following: *Automated exposure control *Adjustment of mA and/or kV according to patient size (this includes techniques or standardized protocols for targeted exams where dose is matched to indication/reason for exam; i.e. extremities or head) *Use of iterative reconstruction technique FINDINGS: PULMONARY NODULES: There are a few tiny scattered 2 mm calcified granuloma. These are unchanged. No new or enlarging pulmonary nodule present. LUNGS: There is mild to moderate paraseptal and centrilobular emphysema with upper lobe predominance. No airspace disease identified. No interstitial disease identified. Small airways are normal. Central airways are patent. There is a saber-sheath trachea. No effusion or pneumothorax. MEDIASTINUM: Normal thyroid. Aorta is normal in caliber and course. Main pulmonary artery is normal in size. No abnormal lymph nodes or masses in the mediastinum. No esophageal abnormality. Heart size normal. There is no pericardial effusion. CORONARY ARTERY CALCIFICATION: None visualized on this study. CHEST WALL/AXILLA: Normal. No masses or abnormal lymph nodes. UPPER ABDOMEN: Imaged upper abdominal contents appear normal allowing for low-dose noncontrast technique. OSSEOUS STRUCTURES: No suspicious lytic or blastic bone lesions. CT/CT lung screening IMPRESSION: 1. No new or enlarging pulmonary nodules. 2. Stable emphysematous changes. No active lung disease. ASSESSMENT: 1. Lung-RADS Category 2: Benign appearance or behavior of nodules. 2. Lung-RADS Category S: None. RECOMMENDATION: Continued routine annual low-dose CT lung screening in 1 year is recommended. An order for CT CHEST LOW DOSE CANCER SCREENING ([id number]) can be placed. Electronically signed by: Kenji Hernandez MD 06/24/2025 08:32 AM EDT Dictated By: Kenji Hernandez MD Signed By: <Electronically signed by Kenji Hernandez MD in OV> 06/24/25 0832 DD/ 0750 TD/TT: 06/24/25 0811 Surveyor Oil Well Directional: Procedure Note Donotuseinterpreter, Image - 06/24/[address] [address] [address] Scan Report Signed Patient: Dilan Casper AMR#: [id number] : 1965Acct:[id number] Age/Sex: 60 / MADM Date: 06/24/25 Loc: HO.CT Attending Dr: Maciej Wick MD Ordering Physician: Maciej Wick MD Date of Service: 06/24/25 Procedure(s): CT lung screening Accession Number(s): [id number] cc: Maciej Wick MD; Gianna Rodríguez MD Report Number: [id number]: Total DLP = 54.00 mGy-cm EXAMINATION: CT LOW-DOSE SCREENING CHEST WITHOUT CONTRAST CLINICAL INFORMATION: 60-year-old male, current smoker, 40 pack years, lung cancer screening. COMPARISON: 05/30/2024, 06/09/2023. TECHNIQUE: Multidetector volumetric CT imaging of the chest is performed on a Siemens SOMATOM Definition scanner without contrast using low dose technique. Additional 2D coronal and sagittal reformatted images and axial 3D maximum intensity projection (MIP) images are generated on the CT workstation. This CT examination was performed using dose optimization techniques as appropriate, variously including the following: *Automated exposure control *Adjustment of mA and/or kV according to patient size (this includes techniques or standardized protocols for targeted exams where dose is matched to indication/reason for exam; i.e. extremities or head) *Use of iterative reconstruction technique FINDINGS: PULMONARY NODULES: There are a few tiny scattered 2 mm calcified granuloma. These are unchanged. No new or enlarging pulmonary nodule present. LUNGS: There is mild to moderate paraseptal and centrilobular emphysema with upper lobe predominance. No airspace disease identified. No interstitial disease identified. Small airways are normal. Central airways are patent. There is a saber-sheath trachea. No effusion or pneumothorax. MEDIASTINUM: Normal thyroid. Aorta is normal in caliber and course. Main pulmonary artery is normal in size. No abnormal lymph nodes or masses in the mediastinum. No esophageal abnormality. Heart size normal. There is no pericardial effusion. CORONARY ARTERY CALCIFICATION: None visualized on this study. CHEST WALL/AXILLA: Normal. No masses or abnormal lymph nodes. UPPER ABDOMEN: Imaged upper abdominal contents appear normal allowing for low-dose noncontrast technique. OSSEOUS STRUCTURES: No suspicious lytic or blastic bone lesions. CT/CT lung screening IMPRESSION: 1. No new or enlarging pulmonary nodules. 2. Stable emphysematous changes. No active lung disease. ASSESSMENT: 1. Lung-RADS Category 2: Benign appearance or behavior of nodules. 2. Lung-RADS Category S: None. RECOMMENDATION: Continued routine annual low-dose CT lung screening in 1 year is recommended. An order for CT CHEST LOW DOSE CANCER SCREENING ([id number]) can be placed. Electronically signed by: Kenji Hernandez MD 06/24/2025 08:32 AM EDT Dictated By: Kenji Hernandez MD Signed By: <Electronically signed by Kenji Hernandez MD in OV> 06/24/25 0832 DD/ 0750 TD/TT: 06/24/25 0811 Surveyor Oil Well Directional: [facility] External Provider IMG CT PROCEDURES Final Result * Hm Colonoscopy (08/06/2024 3:46 PM EDT) Historical Provider HEALTH MAINTENANCE Final Result * (ABNORMAL) Lipid Panel, Standard (11/14/2023 10:51 AM EST) Triglycerides 63 <150 mg/dL [facility] Comment:Desirable Triglyceri de: less than 150 mg/dLBorderline High Triglyceride 150-199 mg/dLHigh Triglyceride: 200-499 mg/dLVery High Triglyceride: greater than or equal to 5OO mg/dL Cholesterol 199 <200 mg/dL [facility] Comment:Desirable Cholestero l: less than 200 mg/dLBorderline High Cholesterol: 200-239 mg/dLHigh Cholesterol: greater than 239 mg/dL LDL Cholesterol Calculated 126(H) <100 mg/dL [facility] Comment:Desirable LDL: less than 100 mg/dLNear Optimal/Above Optimal LDL: 110- 129 mg/dLBorderline High LDL: 130-159 mg/dLHigh LDL: 160-189 mg/dLVery High LDL: greater than or equal to 190 mg/dL HDL Cholesterol 61 >40 mg/dL [facility] Comment:Desirable HDL: great er than 40 mg/dL Note: This HDL assay may give artificially low results in patients with liver disease. Blood Venous blood specimen / Unknown 11/14/2023 10:51 AM EST 11/14/2023 11:24 AM EST Gianna Amado MD LAB BLOOD ORDERAB LES Final Result [facility] [address] [place] [phone] from Last 3 Months or Most Recently Relevant to Health Maintenance Insurance [facility] STANDARD [address] [place] [id number] [address] [place] [address] [address] [place] [address] Care Teams Coin Purse Framer Relationship Specialty Start Date End Date Gianna Rodríguez MD [address] [place] [id number] PCP - General Internal Medicine 05/04/23 Silva Sanz 05/14/25 Maribeth Pierce Animal NutritionistPoultry Vaccinator 12/11/24
[2025-07-03 13:39] LABS: Hematocrit 44.6 % (42.0-52.0); Hemoglobin 14.4 g/dl (14.0-18.0); Mean Corpuscular HGB Conc 32.3 g/dl (31.0-36.0); Mean Corpuscular Hemoglobin 27.6 pg (27.0-33.0); Mean Corpuscular Volume 85.6 fL (80.0-98.0); NRBC Abs Auto 0.000 X10*3/uL (0.0-0.012); NRBC Pct Auto 0.0 /100WBC (0.0-0.2); Platelet Count 253 X10*3/uL (160-400); Red Blood Count 5.21 X10*6/uL (4.60-5.80); White Blood Count 8.5 X10*3/uL (4.8-10.8)
[2025-07-03 13:51] LABS: Hemoglobin A1C 146.0294 umol/L; Total Hemoglobin (HGBA1C) 3740.4890 umol/L
[2025-07-03 13:59] LABS: Alanine Aminotransferase 21 U/L (0-40); Albumin Level 4.5 g/dL (3.5-5.0); Alkaline Phosphatase 65 U/L (39-117); Anion Gap 11 (12-20); Aspartate Amino Transferase 28 U/L (5-37); Blood Urea Nitrogen 12 mg/dL (9-16); Calcium 9.2 mg/dL (8.4-10.2); Carbon Dioxide 27 mmol/L (22-29); Chloride 106 mmol/L (96-108); Cholesterol 193 mg/dL (<200); Estimated Glomerular Filt Rate > 60; HDL Cholesterol 62 mg/dL (>40); Potassium 3.9 mmol/L (3.3-5.1); Sodium 140 mmol/L (135-145); Total Protein 7.2 g/dL (6.5-8.0); Triglycerides 102 mg/dL (<150)
[2025-07-03 14:21] LABS: Prostate Specific Antigen 0.72 ng/mL (<0.05-4.0)
[2025-07-04 04:39] LABS: HBS Num1 0.04 mIU/mL (0-7.99); HBc Num1 0.09 S/CO (0.00-0.79); HBsAGNum1 0.35 S/CO (0.00-0.99); HIV Num 1 0.07 S/CO (0.00-0.99); Hepatitis B Surface Antigen Negative (Negative); ~HepC Num1 0.28 S/CO (0.00-0.79); ~Hepatitis B Surface Antibody NONREACTIVE (Nonreactive); ~Hepatitis C Antibody Nonreactive (Nonreactive)
[2025-07-04 04:47] LABS: Syphilis Screen Nonreactive (Nonreactive)
== END 2025-07-03 10:30 | disposition home or self-care (01) ==
LOC: HO.HHCL 10:29
PROVIDERS: PCP Student in an Organized Health Care Education/Training Program; Visit Provider Student in an Organized Health Care Education/Training Program
DX: Z00.00 Encounter for general adult medical examination without abnormal findings (principal); Z11.59 Encounter for screening for other viral diseases; Z11.4 Encounter for screening for human immunodeficiency virus [HIV]; Z11.3 Encounter for screening for infections with a predominantly sexual mode of transmission
CPT/HCPCS: 36415; 80053; 80061; 83036; 84153; 84443; 85027; 86704; 86706; 86780; 86803; 87340; 87389